=== PATIENT | female | born 1940 | race Caucasian/White ===

== ENCOUNTER 2019-12-21 22:40 | Emergency (ER) | payer MEDICARE, OTHER ==
[~2019-12-21] VITALS: Ht 152.4 cm; Wt 80.9 kg
[~2019-12-21 22:40] MED LIST: ASPI-612 PO; ATOR20TA58 PO; CHOL10003 PO; CLOP75TA PO; FENT1PAT15 TD; FURO40TA4 PO; GABA300C18 PO; LEVO75TA5 PO; LISI-338 PO; LORA10TA68 PO; METF500T25 PO; METO-269 PO; MULT-208 PO; OMEG500C PO; OXYB10TA26 PO; PANT40TA77 PO; POTA20TA4 PO; SERT100T PO; SITA50TA PO; TURM500C7 PO
[2019-12-21] MEDS ORDERED: ALPR0.254 PO ×2 (22:57→22:58)
--- NOTE | 2019-12-21 22:58 | PHYS DOC ---
Past Medical History Past Medical History: Diabetes-Type II, GERD, High Cholesterol, Hypertension, Hypothyroid Past Surgical History: Appendectomy, Cholecystectomy, Knee Replacement Additional Past Surgical Histo: stent placed x 1, replaced Smoking Status: Current Every Day Smoker Alcohol Use: None Drug Use: None Adult General HPI HPI Patient is a 79-year-old female who takes hydrocodone for chronic left shoulder pain. She has not had any of her hydrocodone today because it's locked up in a lock box and she doesn't have the ruiz. She states her kids wouldn't come over and unlock her medicine. She states about 30-45 minutes ago she started feeling anxious and panicky. She called her son who told her to call EMS. She denies any chest pain shortness of breath. She denies any headache or lateralizing neurologic weakness. She has not had any nausea vomiting or diaphoresis. She denies any fever chills or sweats.[] Review of Systems Review of Systems Constitutional: Denies fever or chills [] Eyes: Denies change in visual acuity, redness, or eye pain [] HENT: Denies nasal congestion or sore throat [] Respiratory: Denies cough or shortness of breath [] Cardiovascular: No additional information not addressed in HPI [] GI: Denies abdominal pain, nausea, vomiting, bloody stools or diarrhea [] : Denies dysuria or hematuria [] Musculoskeletal: Denies back pain or joint pain [] Integument: Denies rash or skin lesions [] Neurologic: Denies headache, focal weakness or sensory changes [] Endocrine: Denies polyuria or polydipsia [] Psychiatric: States she feels anxious All other systems were reviewed and found to be within normal limits, except as documented in this note. Allergies Allergies Allergies Coded Allergies Type Severity Reaction Last Updated Verified Penicillins Allergy Intermediate 01/27/16 Yes Physical Exam Physical Exam Constitutional: Well developed, well nourished, no acute distress, non-toxic appearance. [] HENT: Normocephalic, atraumatic, bilateral external ears normal, oropharynx moist, no oral exudates, nose normal. [] Eyes: PERRLA, EOMI, conjunctiva normal, no discharge. [] Neck: Normal range of motion, no tenderness, supple, no stridor. [] Cardiovascular:Heart rate regular rhythm, no murmur [] Lungs & Thorax: Bilateral breath sounds clear to auscultation [] Abdomen: Bowel sounds normal, soft, no tenderness, no masses, no pulsatile masses. [] Skin: Warm, dry, no erythema, no rash. [] Back: No tenderness, no CVA tenderness. [] Extremities: No tenderness, no cyanosis, no clubbing, ROM intact, no edema. [] Neurologic: Alert and oriented X 3, normal motor function, normal sensory function, no focal deficits noted. [] Psychologic: Very anxious[] EKG EKG [] Radiology/Procedures Radiology/Procedures [] Course & Med Decision Making Course & Med Decision Making Pertinent Labs and Imaging studies reviewed. (See chart for details) [] Dragon Disclaimer Dragon Disclaimer This electronic medical record was generated, in whole or in part, using a voice recognition dictation system. Departure Departure Impression: Primary Impression: Anxiety reaction Disposition: 01 HOME, SELF-CARE Condition: STABLE Referrals: TRUMAN MERCEDES Jr, MD (PCP) Patient Instructions: Anxiety and Panic Attacks Additional Instructions: Return to the emergency department with any new or concerning symptoms Scripts Alprazolam (ALPRAZOLAM) 0.25 Mg Tablet 0.25 MG PO PRN Q6HRS PRN for ANXIETY / AGITATION, #6 TAB 0 Refills Prov: BE PAREKH DO 12/21/19 BE PAREKH DO Dec 21, 2019 22:58
[2019-12-21] MEDS ORDERED: ALPRAZolam 0.5 MG TABLET PO ONE (23:15)
[2019-12-21 23:32] VITALS: BP 158/76
== END 2019-12-21 23:58 | disposition home or self-care (01) ==
LOC: ER 22:40
DX: F41.9 Anxiety disorder, unspecified (principal); G89.29 Other chronic pain; M25.512 Pain in left shoulder; E11.9 Type 2 diabetes mellitus without complications; I10 Essential (primary) hypertension; E78.00 Pure hypercholesterolemia, unspecified; K21.9 Gastro-esophageal reflux disease without esophagitis; E03.9 Hypothyroidism, unspecified; Z95.5 Presence of coronary angioplasty implant and graft; Z88.0 Allergy status to penicillin
CPT/HCPCS: 99284

== ENCOUNTER 2020-11-18 14:44 | Inpatient (IN) | payer MEDICARE ==
[~2020-11-18] VITALS: Ht 152.4 cm; Wt 88.0 kg
[~2020-11-18 14:44] MED LIST changes: +ALPR0.254 PO; +APIX5TAB PO; -ASPI-612 PO; +ASPI-886 PO; +DILT120C99 PO; +HYDR-2761 PO; +INSU100V8 SQ; +LEVO250T7 PO; -LISI-338 PO; +LISI-517 PO; +METO-239 PO; +POTA10TA6 PO
[2020-11-18] MEDS ORDERED: IV NORMAL SALINE 1000ML BAG 1,000 ML IV ONE (15:00)
[2020-11-18 15:11] LABS: BASO % 1 % (0-3); EOS % 0 % (0-3); HEMATOCRIT 35.4 % (36.0-47.0); HEMOGLOBIN 12.1 g/dL (12.0-15.5); LYMPH # 0.8 x10^3/uL (1.0-4.8); LYMPH % 15 % (24-48); MEAN CORPUSCULAR HEMOGLOBIN 33 pg (25-35); MEAN CORPUSCULAR HGB CONC 34 g/dL (31-37); MEAN CORPUSCULAR VOLUME 96 fL (79-100); MONO # 0.5 x10^3/uL (0.0-1.1); MONO % 10 % (0-9); NEUT # 4.1 x10^3/uL (1.8-7.7); NEUT % 75 % (31-73); PLATELET COUNT 181 x10^3/uL (140-400); RED CELL DISTRIBUTION WIDTH 13.7 % (11.5-14.5); WHITE BLOOD COUNT 5.5 x10^3/uL (4.0-11.0)
[2020-11-18 15:19] LABS: CREATININE 0.7 mg/dL (0.6-1.0); GFR 80.9; POTASSIUM 3.8 mmol/L (3.5-5.1)
[2020-11-18 15:24] LABS: ALBUMIN 3.2 g/dL (3.4-5.0); MAGNESIUM 1.6 mg/dL (1.8-2.4); TOTAL BILIRUBIN 0.6 mg/dL (0.2-1.0); TOTAL PROTEIN 6.5 g/dL (6.4-8.2)
--- NOTE | 2020-11-18 15:25 | RAD ---
XR CHEST 1V Clinical Indication: Reason: ALTERED MENTAL STATUS Comparison: AP chest October 09, 2020. Findings: The cardiomediastinal silhouette is normal. Mild interstitial marking prominence. No focal airspace d isease. There is no pneumothorax. No pleural effusion is appreciated. No acute bone abnormality. Ther e is arthropathy of the shoulders, severe on the left. IMPRESSION: There is unchanged mild interstitial marking prominence. Considerations include chronic interstitial lung disease versus mild interstitial edema or interstitial infiltrate. Electronically signed by: Robbie Subramanian MD (11/18/2020 3:22 PM) [facility]
--- NOTE | 2020-11-18 15:31 | RAD ---
PQRS Compliance Statement: One or more of the following individualized dose reduction techniques were utilized for this examinat ion: 1. Automated exposure control 2. Adjustment of the mA and/or kV according to patient size 3. Use of iterative reconstruction technique CT HEAD WITHOUT CONTRAST History: Reason: AMS / Spl. Instructions: / History: Comparison: CT head without contrast April 20, 2011. Technique: Axial images are obtained of the head from the skull base through the vertex without IV co ntrast. Findings: No mass-effect, midline shift, extra-axial fluid collection, hemorrhage, or obvious acute infarction is identified. Basilar cisterns are patent. The ventricles and sulci are prominent, consistent with age-related cerebral atrophy. There is perive ntricular white matter hypoattenuation. This is a nonspecific finding but is commonly due to chronic small vessel ischemic disease. Bone windows demonstrate no acute calvarial abnormality. There is mucosal thickening in the bilateral ethmoid sinuses. There is no air-fluid level. Mastoid ai r cells are well aerated. IMPRESSION: 1. No acute intracranial abnormality. 2. Age-related cerebral atrophy and periventricular white matter changes probably due to chronic sma ll vessel ischemic disease. Electronically signed by: Robbie Subramanian MD (11/18/2020 3:28 PM) [facility]
--- NOTE | 2020-11-18 15:57 | EKG ---
[facility] [address] [place] [address] Test Date: 2020-11-18 Test Time: 14:57:45 Pat Name: RADHA PEARSON Department: Room: Gender: F [employer]: : 1940 Requested By: ANGELLA LYON Order Number: [id number] Reading MD: Measurements Intervals [place] Rate: 87 P: MI: QRS: -45 QRSD: 104 T: 54 QT: 358 QTc: 437 Interpretive Statements SINUS RHYTHM ABNORMAL LEFT AXIS DEVIATION LEFT ANTERIOR FASCICULAR BLOCK ABNORMAL ECG RI6.02 No previous ECG available for comparison
[2020-11-18 16:13] LABS: BILIRUBIN,URINE NEGATIVE (NEG); CLARITY,URINE CLEAR; COLOR,URINE YELLOW; NITRITE,URINE NEGATIVE (NEG); PROTEIN,URINE NEGATIVE (NEG-TRACE)
[2020-11-18 16:23] LABS: AMPHETAMINE/METHAMPHETAMINE NEG (NEG); BARBITURATES NEG (NEG); BENZODIAZEPINES NEG (NEG); CANNABINOIDS NEG (NEG); COCAINE NEG (NEG); METHADONE NEG (NEG); OPIATES NEG (NEG); PHENCYCLIDINE NEG (NEG)
[2020-11-18 16:28] LABS: BACTERIA,URINE FEW /HPF (0-FEW)
[2020-11-18] MEDS ORDERED: ACETAMINOPHEN 500 MG TABLET PO ONE (17:15)
--- NOTE | 2020-11-18 17:31 | PHYS DOC ---
Past Medical History Past Medical History: A-Fib, Diabetes-Type II, GERD, High Cholesterol, Hypertension, Hypothyroid Past Surgical History: Appendectomy, Cholecystectomy, Knee Replacement Additional Past Surgical Histo: stent placed x 1, replaced Smoking Status: Former Smoker Alcohol Use: None Drug Use: None General Adult EDM: Chief Complaint: ALTERED MENTAL STATUS HPI: HPI: Patient is a 79 year old female with history of diabetes, hypertension, high cholesterol, A. fib who presents to the ED today from home by EMS, EMS report patient was having physical therapy for right shoulder rotator cuff issues when the therapist noted she was altered and not on top of her game. Patient herself states she feels "disty" and not able to remember things very well. She states she also feels very thirsty. She states she has chronic right shoulder pain. Denies any chest pain. She states she has shortness of breath on exertion Review of Systems: Review of Systems: Constitutional: Denies fever or chills. [] Eyes: Denies change in visual acuity. [] HENT: Denies nasal congestion or sore throat. [] Respiratory: Reports shortness of breath on exertion. Denies cough Cardiovascular: Denies chest pain or edema. [] GI: Denies abdominal pain, nausea, vomiting, bloody stools or diarrhea. [] : Denies dysuria. [] Musculoskeletal: Denies back pain or joint pain. [] Integument: Denies rash. [] Neurologic: Reports altered mental status. Denies headache, focal weakness or sensory changes. [] Psychiatric: Denies depression or anxiety. [] Heart Score: Risk Factors: Risk Factors: DM, Current or recent (<one month) smoker, HTN, HLP, family history of CAD, obesity. Risk Scores: Score 0 - 3: 2.5% MACE over next 6 weeks - Discharge Home Score 4 - 6: 20.3% MACE over next 6 weeks - Admit for Clinical Observation Score 7 - 10: 72.7% MACE over next 6 weeks - Early Invasive Strategies Current Medications: Current Medications Medications (Trade) Dose Ordered Sig/Myra Start Time Stop Time Status Last Admin Dose Admin Acetaminophen (Tylenol) 500 mg 1X ONCE 11/18/20 17:15 11/18/20 17:16 DC 11/18/20 17:24 500 MG Sodium Chloride 1,000 ml @ 1,000 mls/hr 1X ONCE 11/18/20 15:00 11/18/20 15:59 DC 11/18/20 15:50 1,000 MLS/HR Allergies: Allergies: Allergies Coded Allergies Type Severity Reaction Last Updated Verified Penicillins Allergy Intermediate 01/27/16 Yes Physical Exam: PE: Constitutional: Well developed, well nourished, no acute distress, non-toxic appearance. [] HENT: Normocephalic, atraumatic, bilateral external ears normal, oropharynx moist, no oral exudates, nose normal. [] Eyes: PERRLA, EOMI, conjunctiva normal, no discharge. [] Neck: Normal range of motion, no tenderness, supple, no stridor. [] Cardiovascular:Heart rate regular rhythm, no murmur [] Lungs & Thorax: Bilateral breath sounds clear to auscultation [] Abdomen: Bowel sounds normal, soft, no tenderness, no masses, no pulsatile masses. [] Skin: Warm, dry, no erythema, no rash. [] Back: No tenderness, no CVA tenderness. [] Extremities: No tenderness, no cyanosis, no clubbing, ROM intact, no edema. Fentanyl patch on the right upper back Neurologic: Alert and oriented X 3 but takes a while to answer questions, normal motor function, normal sensory function, no focal deficits noted. Cranial nerves II through XII intact. Psychologic: Flat affect Current Patient Data: Labs: Laboratory Tests Test 11/18/20 14:55 11/18/20 15:50 White Blood Count 5.5 x10^3/uL (4.0-11.0) Red Blood Count 3.70 x10^6/uL (3.50-5.40) Hemoglobin 12.1 g/dL (12.0-15.5) Hematocrit 35.4 % (36.0-47.0) L Mean Corpuscular Volume 96 fL (79-100) Mean Corpuscular Hemoglobin 33 pg (25-35) Mean Corpuscular Hemoglobin Concent 34 g/dL (31-37) Red Cell Distribution Width 13.7 % (11.5-14.5) Platelet Count 181 x10^3/uL (140-400) Neutrophils (%) (Auto) 75 % (31-73) H Lymphocytes (%) (Auto) 15 % (24-48) L Monocytes (%) (Auto) 10 % (0-9) H Eosinophils (%) (Auto) 0 % (0-3) Basophils (%) (Auto) 1 % (0-3) Neutrophils # (Auto) 4.1 x10^3/uL (1.8-7.7) Lymphocytes # (Auto) 0.8 x10^3/uL (1.0-4.8) L Monocytes # (Auto) 0.5 x10^3/uL (0.0-1.1) Eosinophils # (Auto) 0.0 x10^3/uL (0.0-0.7) Basophils # (Auto) 0.0 x10^3/uL (0.0-0.2) Sodium Level 136 mmol/L (136-145) Potassium Level 3.8 mmol/L (3.5-5.1) Chloride Level 96 mmol/L (98-107) L Carbon Dioxide Level 24 mmol/L (21-32) Anion Gap 16 (6-14) H Blood Urea Nitrogen 23 mg/dL (7-20) H Creatinine 0.7 mg/dL (0.6-1.0) Estimated GFR (Cockcroft-Gault) 80.9 BUN/Creatinine Ratio 33 (6-20) H Glucose Level 237 mg/dL (70-99) H Lactic Acid Level 1.2 mmol/L (0.4-2.0) Calcium Level 8.0 mg/dL (8.5-10.1) L Magnesium Level 1.6 mg/dL (1.8-2.4) L Total Bilirubin 0.6 mg/dL (0.2-1.0) Aspartate Amino Transferase (AST) 25 U/L (15-37) Alanine Aminotransferase (ALT) 13 U/L (14-59) L Alkaline Phosphatase 78 U/L (46-116) Troponin I Quantitative < 0.017 ng/mL (0.000-0.055) QK-Fym-S-Type Natriuretic Peptide 232 pg/mL (0-449) Total Protein 6.5 g/dL (6.4-8.2) Albumin 3.2 g/dL (3.4-5.0) L Albumin/Globulin Ratio 1.0 (1.0-1.7) Procalcitonin < 0.10 ng/mL (0.00-0.10) Thyroid Stimulating Hormone (TSH) 0.303 uIU/mL (0.358-3.74) L Urine Collection Type Unknown Urine Color Yellow Urine Clarity Clear Urine pH 6.0 (<5.0-8.0) Urine Specific [place] >=1.030 (1.000-1.030) Urine Protein Negative mg/dL (NEG-TRACE) Urine Glucose (UA) >=1000 mg/dL (NEG) Urine Ketones (Stick) >=80 mg/dL (NEG) Urine Blood Moderate (NEG) Urine Nitrite Negative (NEG) Urine Bilirubin Negative (NEG) Urine Urobilinogen Dipstick 1.0 mg/dL (0.2 mg/dL) Urine Leukocyte Esterase Negative (NEG) Urine RBC 3-5 /HPF (0-2) Urine WBC 1-4 /HPF (0-4) Urine Squamous Epithelial Cells Few /LPF Urine Bacteria Few /HPF (0-FEW) Urine Opiates Screen Neg (NEG) Urine Methadone Screen Neg (NEG) Urine Barbiturates Neg (NEG) Urine Phencyclidine Screen Neg (NEG) Urine Amphetamine/Methamphetamine Neg (NEG) Urine Benzodiazepines Screen Neg (NEG) Urine Cocaine Screen Neg (NEG) Urine Cannabinoids Screen Neg (NEG) Urine Ethyl Alcohol Neg (NEG) Laboratory Tests 11/18/20 14:55 Laboratory Tests 11/18/20 14:55 Vital Signs: Vital Signs Date Time Temp Pulse Resp B/P (MAP) Pulse Ox O2 Delivery O2 Flow Rate FiO2 11/18/20 14:44 98.2 94 22 133/63 (86) 93 Room Air 98.2 EKG: EK interpreted by Dr. Davis sinus rhythm HR 82 no STEMI Radiology/Procedures: Radiology/Procedures: []PROCEDURE: CT HEAD WO CONTRAST PQRS Compliance Statement: One or more of the following individualized dose reduction techniques were utilized for this examination: 1. Automated exposure control 2. Adjustment of the mA and/or kV according to patient size 3. Use of iterative reconstruction technique CT HEAD WITHOUT CONTRAST History: Reason: AMS / Spl. Instructions: / History: Comparison: CT head without contrast April 20, 2011. Technique: Axial images are obtained of the head from the skull base through the vertex without IV contrast. Findings: No mass-effect, midline shift, extra-axial fluid collection, hemorrhage, or obvious acute infarction is identified. Basilar cisterns are patent. The ventricles and sulci are prominent, consistent with age-related cerebral atrophy. There is periventricular white matter hypoattenuation. This is a nonspecific finding but is commonly due to chronic small vessel ischemic disease. Bone windows demonstrate no acute calvarial abnormality. There is mucosal thickening in the bilateral ethmoid sinuses. There is no air- fluid level. Mastoid air cells are well aerated. IMPRESSION: 1. No acute intracranial abnormality. 2. Age-related cerebral atrophy and periventricular white matter changes probably due to chronic small vessel ischemic disease. Electronically signed by: Robbie Subramanian MD (11/18/2020 3:28 PM) [facility] DICTATED and SIGNED BY: ROBBIE SUBRAMANIAN MD DATE: 11/18/20 [id number] PROCEDURE: PORTABLE CHEST 1V XR CHEST 1V Clinical Indication: Reason: ALTERED MENTAL STATUS Comparison: AP chest October 09, 2020. Findings: The cardiomediastinal silhouette is normal. Mild interstitial marking prominence. No focal airspace disease. There is no pneumothorax. No pleural effusion is appreciated. No acute bone abnormality. There is arthropathy of the shoulders, severe on the left. IMPRESSION: There is unchanged mild interstitial marking prominence. Considerations include chronic interstitial lung disease versus mild interstitial edema or interstitial infiltrate. Electronically signed by: Robbie Subramanian MD (11/18/2020 3:22 PM) [facility] DICTATED and SIGNED BY: ROBBIE SUBRAMANIAN MD DATE: 11/18/20 [id number] Course & Med Decision Making: Course & Med Decision Making Pertinent Labs and Imaging studies reviewed. (See chart for details) This is a 79-year-old female patient presented to the ED today to be evaluated for altered mental status. See HPI. CT of the head is negative for any acute findings, chest x-ray is negative, EKG is negative, CBC with no acute findings, CMP with glucose of 237, anion gap is 16, BUN is 23. Magnesium 1.6. Urine noted for dehydration. Patient was given IV fluids in the ED. She is more awake and alert right now. Spoke with Dr. Orozco who accepted patient for admission Katy Disclaimer: Katy Disclaimer: This electronic medical record was generated, in whole or in part, using a voice recognition dictation system. Departure Departure Referrals: BISMARK LEO MD (PCP) ANGELLA LYON APRN Nov 18, 2020 17:31
--- NOTE | 2020-11-18 17:43 | PDOC1 ---
History and Physical Date of Admission Date of Admission DATE: 11/18/20 TIME: 17:26 Identification/Chief Complaint Chief Complaint Confusion Source Source: Caregiver, Chart review, Patient History of Present Illness History of Present Illness Ms Flannery is a 79 yo F w/ PMHx HTN, paroxsymal afib who presents to ED via EMS after home health aide noted she was very confused, not acting like herself. Children noted the same. Patient notes she feels dizzy and shaky. She does complain of left shoulder pain that is 9 out of 10 nonradiating. She thinks this is due to a torn rotator cuff. She notes she just saw her personal driver yesterday, Dr. Nash, has a continuous glucometer on her left arm. Was increased in her dosing of lantus to 30u QAM instead of QHS, she did not change yet EKG sinus rhythm rate in the 80s, not in A. 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 No ST segment or T wave changes. Urinalysis positive ketones and glucosuria no leukocyte esterase or nitrates. Urine drug screen negative, though she is wearing two fentanyl patches, 25mcg on her left deltoid and right scapula. When asked how she got the patches on she tells me she doesn't do that, she only puts on her glucose monitor, which is on her left deltoid. She is confused about the fentanyl patches. Labs with WBC 5.5, Hb 12.1, platelets 181, NA 136, K3.8, BUN 23, CR 0.7, glucose 237, albumin 3.2, magnesium 1.6, TSH 0.[address] head with no acute intracranial findings. Chest radiograph with no acute changes Admitted for further care Past Medical History Cardiovascular: AFIB, CAD, HTN, Hyperlipidemia Pulmonary: No pertinent hx CENTRAL NERVOUS SYSTEM: TIA GI: GERD Psych: Anxiety, Depression Musculoskeletal: Other Rheumatologic: No pertinent hx Infectious disease: No pertinent hx Renal/: No pertinent hx Endocrine: Diabetes, Hypothyroidism Past Surgical History Past Surgical History: Appendectomy, Cholecystectomy, Total knee replacement Family History Family History: Heart Disease Social History Smoke: Quit ALCOHOL: none Drugs: None Current Medications Current Medications Current Medications Sodium Chloride 1,000 ml @ 1,000 mls/hr 1X ONCE IV Last administered on 11/18/20at 15:50; Start 3/3/21 at 15:00; Stop 11/18/20 at 15:59; Status DC Acetaminophen (Tylenol) 500 mg 1X ONCE PO Last administered on 11/18/20at 17:24; Start 11/18/20 at 17:15; Stop 11/18/20 at 17:16; Status DC Active Scripts Active Lantus (Insulin Glargine,Hum.rec.anlog) 100 Unit/1 Ml Vial 26 Unit SQ QHS 30 Days Hydrocodone-Apap 5-325 (Hydrocodone Bit/Acetaminophen) 1 Tab Tablet 1 Tab PO PRN Q6HRS PRN 14 Days Diltiazem 24HR Cd (Diltiazem Hcl) 120 Mg Cap.er.24h 120 Mg PO DAILY 30 Days Metoprolol Succinate ( Xl ) (Metoprolol Succinate) 25 Mg Tab.er.24h 75 Mg PO DAILY 30 Days Eliquis (Apixaban) 5 Mg Tablet 5 Mg PO BID 30 Days Levofloxacin 250 Mg Tablet 250 Mg PO DAILY06 7 Days Alprazolam 0.25 Mg Tablet 0.25 Mg PO PRN Q6HRS PRN Reported Furosemide 40 Mg Tablet 1 Tab PO PRN DAILY Klor-Con 10 (Potassium Chloride) 10 Meq Tablet.er 1 Tab PO PRN DAILY PRN 30 Days Vitamin D3 (Cholecalciferol (Vitamin D3)) 1,000 Unit Tablet 2 Tab PO BID Turmeric (Turmeric Root Extract) 500 Mg Capsule 500 Mg PO DAILY Multi-Day Vitamins (Multivitamin) 1 Each Tablet 1 Tab PO DAILY Januvia (Sitagliptin Phosphate) 50 Mg Tablet 1 Tab PO DAILY Zoloft (Sertraline Hcl) 100 Mg Tablet 1 Tab PO DAILY Pantoprazole Sodium (Pantoprazole Sodium) 40 Mg Tablet.dr 1 Tab PO DAILY Oxybutynin Chloride Er (Oxybutynin Chloride) 10 Mg Tab.er.24 1 Tab PO DAILY Toprol Xl (Metoprolol Succinate) 50 Mg Tab.er.24h 1 Tab PO DAILY Levothyroxine Sodium 75 Mcg Tablet 1 Tab PO DAILY Gabapentin (Gabapentin) 300 Mg Capsule 300 Mg PO BID 300mg in am, 600mg at bedtime Fish Oil ([place]-3 Fatty Acids) 500 Mg Capsule.dr 500 Mg PO FENTANYL 25mcg/hr (Fentanyl) 1 Each Patch.td72 1 Patch TD Q72H Clopidogrel (Clopidogrel Bisulfate) 75 Mg Tablet 1 Tab PO DAILY Claritin (Loratadine) 10 Mg Tablet 1 Tab PO DAILY Atorvastatin Calcium 20 Mg Tablet 1 Tab PO DAILY Metformin Hcl Er (Metformin Hcl) 500 Mg Tab.er.24 1,000 Mg PO BID Allergies Allergies: Coded Allergies: Penicillins (Verified Allergy, Intermediate, 01/27/16) ROS General: YES: Fatigue, Malaise; No: Chills, Night Sweats, Appetite, Other PSYCHOLOGICAL ROS: YES: Anxiety, Concentration difficultie, Disorientation, Memory difficulties; No: Behavioral Disorder, Decreased libido, Depression, Hallucinations, Hostility, Irritablity, Mood Swings, Obsessive thoughts, Physical abuse, Sexual abuse, Sleep disturbances, Suicidal ideation, Other Eyes: No Blurry vision, No Decreased vision, No Double vision, No Dry eyes, No Excessive tearing, No Eye Pain, No Itchy Eyes, No Loss of vision, No Photophobia, No Scotomata, No Uses contacts, No Uses glasses, No Other HEENT: YES: Heacaches; No: Visual Changes, Hearing change, Nasal congestion, Nasal discharge, Oral lesions, Sinus pain, Sore Throat, Epistaxis, Sneezing, Snoring, Tinnitus, Vertigo, Vocal changes, Other ALLERGY AND IMMUNOLOGY: No: Hives, Insect Bite Sensitivity, Itchy/Watery Eyes, Nasal Congestion, Post Nasal Drip, Seasonal Allergies, Other Hematological and Lymphatic: No: Bleeding Problems, Blood Clots, Blood Transfusions, Brusing, Night Sweats, Pallor, Swollen Lymph Nodes, Other ENDOCRINE: No: Breast Changes, Galactorrhea, Hair Pattern Changes, Hot Flashes, Malaise/lethargy, Mood Swings, Palpitations, Polydipsia/polyuria, Skin Changes, Temperature Intolerance, Unexpected Weight Changes, Other Breast: No New/Changing Breast Lumps, No Nipple changes, No Nipple discharge, No Other Respiratory: No: Cough, Hemoptysis, Orthopnea, Pleuritic Pain, Shortness of breath, SOB with excertion, Sputum Changes, Stridor, Tachypnea, Wheezing, Other Cardiovascular: No Chest Pain, No Palpitations, No Orthopnea, No Paroxysmal Noc. Dyspnea, No Edema, No Lt Headedness, No Other Gastrointestinal: No Nausea, No Vomiting, No Abdominal Pain, No Diarrhea, No Constipation, No Melena, No Hematochezia, No Other Genitourinary: No Dysuria, No Frequency, No Incontinence, No Hematuria, No Retention, No Discharge, No Urgency, No Pain, No Flank Pain, No Other, No , No , No , No , No , No , No Musculoskeletal: No Gait Disturbance, No Joint Pain, No Joint Stiffness, No Joint Swelling, No Muscle Pain, No Muscular Weakness, No Pain In:, No Swelling In:, No Other Neurological: Yes Confusion, Yes Dizziness, Yes Headaches, Yes Impaired Coord/balance, Yes Memory Loss; No Behavorial Changes, No Bowel/Bladder ControlChng, No Gait Disturbance, No Numbness/Tingling, No Seizures, No Speech Problems, No Tremors, No Visual Changes, No Weakness, No Other Skin: No Dry Skin, No Eczema, No Hair Changes, No Lumps, No Mole Changes, No Mottling, No Nail Changes, No Pruritus, No Rash, No Skin Lesion Changes, No Other, No Acne Vitals Vitals Vital Signs Date Time Temp Pulse Resp B/P (MAP) Pulse Ox O2 Delivery O2 Flow Rate FiO2 11/18/20 14:44 98.2 94 22 133/63 (86) 93 Room Air 98.2 Labs Labs Laboratory Tests Test 11/18/20 14:55 11/18/20 15:50 White Blood Count 5.5 x10^3/uL (4.0-11.0) Red Blood Count 3.70 x10^6/uL (3.50-5.40) Hemoglobin 12.1 g/dL (12.0-15.5) Hematocrit 35.4 % (36.0-47.0) Mean Corpuscular Volume 96 fL (79-100) Mean Corpuscular Hemoglobin 33 pg (25-35) Mean Corpuscular Hemoglobin Concent 34 g/dL (31-37) Red Cell Distribution Width 13.7 % (11.5-14.5) Platelet Count 181 x10^3/uL (140-400) Neutrophils (%) (Auto) 75 % (31-73) Lymphocytes (%) (Auto) 15 % (24-48) Monocytes (%) (Auto) 10 % (0-9) Eosinophils (%) (Auto) 0 % (0-3) Basophils (%) (Auto) 1 % (0-3) Neutrophils # (Auto) 4.1 x10^3/uL (1.8-7.7) Lymphocytes # (Auto) 0.8 x10^3/uL (1.0-4.8) Monocytes # (Auto) 0.5 x10^3/uL (0.0-1.1) Eosinophils # (Auto) 0.0 x10^3/uL (0.0-0.7) Basophils # (Auto) 0.0 x10^3/uL (0.0-0.2) Sodium Level 136 mmol/L (136-145) Potassium Level 3.8 mmol/L (3.5-5.1) Chloride Level 96 mmol/L (98-107) Carbon Dioxide Level 24 mmol/L (21-32) Anion Gap 16 (6-14) Blood Urea Nitrogen 23 mg/dL (7-20) Creatinine 0.7 mg/dL (0.6-1.0) Estimated GFR (Cockcroft-Gault) 80.9 BUN/Creatinine Ratio 33 (6-20) Glucose Level 237 mg/dL (70-99) Lactic Acid Level 1.2 mmol/L (0.4-2.0) Calcium Level 8.0 mg/dL (8.5-10.1) Magnesium Level 1.6 mg/dL (1.8-2.4) Total Bilirubin 0.6 mg/dL (0.2-1.0) Aspartate Amino Transf (AST/SGOT) 25 U/L (15-37) Alanine Aminotransferase (ALT/SGPT) 13 U/L (14-59) Alkaline Phosphatase 78 U/L (46-116) Troponin I Quantitative < 0.017 ng/mL (0.000-0.055) MO-Xdq-[id number]-Type Natriuretic Peptide 232 pg/mL (0-449) Total Protein 6.5 g/dL (6.4-8.2) Albumin 3.2 g/dL (3.4-5.0) Albumin/Globulin Ratio 1.0 (1.0-1.7) Procalcitonin < 0.10 ng/mL (0.00-0.10) Thyroid Stimulating Hormone (TSH) 0.303 uIU/mL (0.358-3.74) Urine Collection Type Unknown Urine Color Yellow Urine Clarity Clear Urine pH 6.0 (<5.0-8.0) Urine Specific [place] >=1.030 (1.000-1.030) Urine Protein Negative mg/dL (NEG-TRACE) Urine Glucose (UA) >=1000 mg/dL (NEG) Urine Ketones (Stick) >=80 mg/dL (NEG) Urine Blood Moderate (NEG) Urine Nitrite Negative (NEG) Urine Bilirubin Negative (NEG) Urine Urobilinogen Dipstick 1.0 mg/dL (0.2 mg/dL) Urine Leukocyte Esterase Negative (NEG) Urine RBC 3-5 /HPF (0-2) Urine WBC 1-4 /HPF (0-4) Urine Squamous Epithelial Cells Few /LPF Urine Bacteria Few /HPF (0-FEW) Urine Opiates Screen Neg (NEG) Urine Methadone Screen Neg (NEG) Urine Barbiturates Neg (NEG) Urine Phencyclidine Screen Neg (NEG) Urine Amphetamine/Methamphetamine Neg (NEG) Urine Benzodiazepines Screen Neg (NEG) Urine Cocaine Screen Neg (NEG) Urine Cannabinoids Screen Neg (NEG) Urine Ethyl Alcohol Neg (NEG) Laboratory Tests Test 11/18/20 14:55 11/18/20 15:50 White Blood Count 5.5 x10^3/uL (4.0-11.0) Red Blood Count 3.70 x10^6/uL (3.50-5.40) Hemoglobin 12.1 g/dL (12.0-15.5) Hematocrit 35.4 % (36.0-47.0) Mean Corpuscular Volume 96 fL (79-100) Mean Corpuscular Hemoglobin 33 pg (25-35) Mean Corpuscular Hemoglobin Concent 34 g/dL (31-37) Red Cell Distribution Width 13.7 % (11.5-14.5) Platelet Count 181 x10^3/uL (140-400) Neutrophils (%) (Auto) 75 % (31-73) Lymphocytes (%) (Auto) 15 % (24-48) Monocytes (%) (Auto) 10 % (0-9) Eosinophils (%) (Auto) 0 % (0-3) Basophils (%) (Auto) 1 % (0-3) Neutrophils # (Auto) 4.1 x10^3/uL (1.8-7.7) Lymphocytes # (Auto) 0.8 x10^3/uL (1.0-4.8) Monocytes # (Auto) 0.5 x10^3/uL (0.0-1.1) Eosinophils # (Auto) 0.0 x10^3/uL (0.0-0.7) Basophils # (Auto) 0.0 x10^3/uL (0.0-0.2) Sodium Level 136 mmol/L (136-145) Potassium Level 3.8 mmol/L (3.5-5.1) Chloride Level 96 mmol/L (98-107) Carbon Dioxide Level 24 mmol/L (21-32) Anion Gap 16 (6-14) Blood Urea Nitrogen 23 mg/dL (7-20) Creatinine 0.7 mg/dL (0.6-1.0) Estimated GFR (Cockcroft-Gault) 80.9 BUN/Creatinine Ratio 33 (6-20) Glucose Level 237 mg/dL (70-99) Lactic Acid Level 1.2 mmol/L (0.4-2.0) Calcium Level 8.0 mg/dL (8.5-10.1) Magnesium Level 1.6 mg/dL (1.8-2.4) Total Bilirubin 0.6 mg/dL (0.2-1.0) Aspartate Amino Transf (AST/SGOT) 25 U/L (15-37) Alanine Aminotransferase (ALT/SGPT) 13 U/L (14-59) Alkaline Phosphatase 78 U/L (46-116) Troponin I Quantitative < 0.017 ng/mL (0.000-0.055) IG-Hcw-G-Type Natriuretic Peptide 232 pg/mL (0-449) Total Protein 6.5 g/dL (6.4-8.2) Albumin 3.2 g/dL (3.4-5.0) Albumin/Globulin Ratio 1.0 (1.0-1.7) Procalcitonin < 0.10 ng/mL (0.00-0.10) Thyroid Stimulating Hormone (TSH) 0.303 uIU/mL (0.358-3.74) Urine Collection Type Unknown Urine Color Yellow Urine Clarity Clear Urine pH 6.0 (<5.0-8.0) Urine Specific [place] >=1.030 (1.000-1.030) Urine Protein Negative mg/dL (NEG-TRACE) Urine Glucose (UA) >=1000 mg/dL (NEG) Urine Ketones (Stick) >=80 mg/dL (NEG) Urine Blood Moderate (NEG) Urine Nitrite Negative (NEG) Urine Bilirubin Negative (NEG) Urine Urobilinogen Dipstick 1.0 mg/dL (0.2 mg/dL) Urine Leukocyte Esterase Negative (NEG) Urine RBC 3-5 /HPF (0-2) Urine WBC 1-4 /HPF (0-4) Urine Squamous Epithelial Cells Few /LPF Urine Bacteria Few /HPF (0-FEW) Urine Opiates Screen Neg (NEG) Urine Methadone Screen Neg (NEG) Urine Barbiturates Neg (NEG) Urine Phencyclidine Screen Neg (NEG) Urine Amphetamine/Methamphetamine Neg (NEG) Urine Benzodiazepines Screen Neg (NEG) Urine Cocaine Screen Neg (NEG) Urine Cannabinoids Screen Neg (NEG) Urine Ethyl Alcohol Neg (NEG) Images Images CT Head: No mass-effect, midline shift, extra-axial fluid collection, hemorrhage, or obvious acute infarction is identified. Basilar cisterns are patent. The ventricles and sulci are prominent, consistent with age-related cerebral atrophy. There is periventricular white matter hypoattenuation. This is a nonspecific finding but is commonly due to chronic small vessel ischemic disease. Bone windows demonstrate no acute calvarial abnormality. There is mucosal thickening in the bilateral ethmoid sinuses. There is no air- fluid level. Mastoid air cells are well aerated. IMPRESSION: 1. No acute intracranial abnormality. 2. Age-related cerebral atrophy and periventricular white matter changes probably due to chronic small vessel ischemic disease. VTE Prophylaxis Ordered VTE Prophylaxis Devices: Yes VTE Pharmacological Prophylaxi: Yes Assessment/Plan Assessment/Plan A/P: Acute encephalopathy - noted by home health and children, not at baseline. No focal neurologic deficits to indicate CVA, possibly due to electrolyte derangement. Likely also polypharmacy considering she has 2 fentanyl patches. Her TSH is low, will reduce her levothyroxine as well Paroxysmal AFIB - currently sinus. on oral Cardizem, metoprolol. Rate remains uncontrolled. On prophylactic dose of Lovenox. CAD s/p remote PCI/stent. On ASA/Plavix. Follows with [facility] cardiology, Dr. Salter Hypertension - will monitor Hyperlipidemia; statin Diabetes - type II, not well controlled. Sees Dr. Nash through [facility]. Will continue her 30u lantus regimen and sliding scale lispro otherwise Hypothyroidism; on replacement. TSH low, will reduce given her confusion and h/o afib H/o tobaccoism; in remission Hypomagnesemia - will replace Moderate protein calorie malnutrition - given her recent SNF stay her self care is in question. She notes she only eats microwave meals and sometimes a salad her home health aide will make FEN - ADA diet PPX - eliquis FULL CODE Dispo - inpatient for confusion, may need SNF or longer term placement Justifications for Admission Other Justification GIGI REESE MD Nov 18, 2020 17:43
[2020-11-18] MEDS ORDERED: DEXTROSE 50% 25 GM / 50ML DISP.SYRIN. IV PRN (17:45)
[2020-11-18] MEDS ORDERED: ONDANSETRON PF 4 MG/2 ML VIAL. IVP PRN (17:45)
[2020-11-18] MEDS ORDERED: CALCIUM CARBONATE 500 MG TAB.CHEW PO PRN (17:45)
[2020-11-18] MEDS ORDERED: MAGNESIUM HYDROXIDE 2,400 MG/30 ML ORAL.SUSP. PO PRN (17:45)
[2020-11-18] MEDS: LIDOCAINE (700MG/PATCH) PATCH. TD SCH (18:00)
[2020-11-18] MEDS ORDERED: PROCHLORPERAZINE 10 MG/2 ML VIAL. IV ONE (18:00)
[2020-11-18] MEDS ORDERED: MAGNESIUM SULFATE 2GM 50 ML IV ONE (18:00)
[2020-11-18] MEDS ORDERED: ACETAMINOPHEN 325 MG TABLET. PO PRN (19:15)
[2020-11-18] MEDS ORDERED: ONDANSETRON PF 4 MG/2 ML VIAL. IV PRN (19:15)
[2020-11-18 19:32] VITALS: BP 130/60
--- NOTE | 2020-11-18 20:07 | NUR ---
Pt arrived to room 256 per cart, pt oriented to surroundings assessment completed tele monitor applied pt c\o pain to left shoulder, vs obtained and stable call light placed in reach will resume care and continue to Addendum: 11/18/20 at 2009 by Huang Saldaña RN monitor pt. Will resume care and continue to monitor pt.
[2020-11-18] MEDS ORDERED: INSULIN GLARGINE SYRINGE. SQ SCH (21:00)
[2020-11-18] MEDS: DICLOFENAC SODIUM 1% TOPICAL GEL 100GM TUBE. TP SCH (21:08)
[2020-11-18] MEDS: GABAPENTIN 300 MG CAPSULE. PO SCH (21:09)
[2020-11-18] MEDS: traMADol 50 MG TABLET PO PRN (21:09)
[2020-11-18] MEDS: APIXABAN 5 MG TABLET. PO SCH (21:09)
[2020-11-18] MEDS: CHOLECALCIFEROL (VITAMIN D3) 1,000 UNIT TABLET PO SCH (21:09)
[2020-11-18] MEDS: SENNOSIDES/DOCUSATE 8.6/50MG TABLET. PO SCH (21:09)
[2020-11-18] MEDS: PSYLLIUM HUSK (SUGAR FREE) 1 PKT PACKET PO SCH (21:10)
[2020-11-18] MEDS: INSULIN GLARGINE SYRINGE. SQ SCH (21:10)
[2020-11-18 22:11] VITALS: BP 109/56
[2020-11-19 02:04] VITALS: BP 115/59
[2020-11-19] MEDS: ACETAMINOPHEN 325 MG TABLET. PO PRN ×2 (02:11→20:43)
[2020-11-19] MEDS: LEVOTHYROXINE 50 MCG TABLET PO SCH (05:56)
[2020-11-19] MEDS: PANTOPRAZOLE 40 MG TABLET.DR. PO SCH (05:57)
[2020-11-19 07:00] VITALS: BP 130/59
[2020-11-19 07:50] LABS: CALCIUM 7.6 mg/dL (8.5-10.1); CREATININE 0.7 mg/dL (0.6-1.0); GFR 80.9; POTASSIUM 3.9 mmol/L (3.5-5.1)
[2020-11-19] MEDS: SENNOSIDES/DOCUSATE 8.6/50MG TABLET. PO SCH ×2 (08:13→20:42)
[2020-11-19] MEDS: LIDOCAINE (700MG/PATCH) PATCH. TD SCH (08:14)
[2020-11-19] MEDS: LINAGLIPTIN 5 MG TABLET PO SCH (08:15)
[2020-11-19] MEDS: CETIRIZINE HCL 10 MG TABLET. PO SCH (08:15)
[2020-11-19] MEDS: GABAPENTIN 300 MG CAPSULE. PO SCH ×2 (08:16→20:43)
[2020-11-19] MEDS: CLOPIDOGREL BISULFATE 75 MG TABLET PO SCH (08:16)
[2020-11-19] MEDS: APIXABAN 5 MG TABLET. PO SCH ×2 (08:16→20:43)
[2020-11-19] MEDS: SERTRALINE 50 MG TABLET. PO SCH (08:16)
[2020-11-19] MEDS: CHOLECALCIFEROL (VITAMIN D3) 1,000 UNIT TABLET PO SCH ×2 (08:16→20:42)
[2020-11-19] MEDS: METOPROLOL SUCC 24HR ER 25 MG TAB.ER.24H. PO SCH (08:17)
[2020-11-19] MEDS: ATORVASTATIN CALCIUM 20 MG TABLET PO SCH (08:19)
[2020-11-19] MEDS: DICLOFENAC SODIUM 1% TOPICAL GEL 100GM TUBE. TP SCH ×2 (08:21→20:43)
--- NOTE | 2020-11-19 08:24 | PDOC ---
[employer] PROGRESS NOTE Date of Service DOS: DATE: 11/19/20 TIME: 08:07 Chief Complaint Chief Complaint A/P: Acute encephalopathy, likely toxic encephalopathy - noted by home health and children, not at baseline. No focal neurologic deficits to indicate CVA, possibly due to electrolyte derangement. Likely also polypharmacy considering she has 2 fentanyl patches. Her TSH is low, will reduce her levothyroxine as well Paroxysmal AFIB - currently sinus. on oral Cardizem, metoprolol. Rate remains uncontrolled. On prophylactic dose of Lovenox. CAD s/p remote PCI/stent. On ASA/Plavix. Follows with [facility] cardiology, Dr. Salter Hypertension - will monitor Hyperlipidemia; statin Diabetes - type II, not well controlled. Sees Dr. Nash through [facility]. Will continue her 30u lantus regimen and sliding scale lispro otherwise Hypothyroidism; on replacement. TSH low, will reduce given her confusion and h/o afib H/o tobaccoism; in remission Hypomagnesemia - will replace Moderate protein calorie malnutrition - given her recent SNF stay her self care is in question. She notes she only eats microwave meals and sometimes a salad her home health aide will make FEN - ADA diet PPX - eliquis FULL CODE Dispo - inpatient for confusion, may need SNF or longer term placement History of Present Illness History of Present Illness Ms Flannery is a 79 yo F w/ PMHx HTN, paroxsymal afib who presents to ED via EMS after home health aide noted she was very confused, not acting like herself. Children noted the same. Patient notes she feels dizzy and shaky. She does complain of left shoulder pain that is 9 out of 10 nonradiating. She thinks this is due to a torn rotator cuff. She notes she just saw her i&c technician yesterday, Dr. Nash, has a continuous glucometer on her left arm. Was increased in her dosing of lantus to 30u QAM instead of QHS, she did not change yet EKG sinus rhythm rate in the 80s, not in A. 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 No ST segment or T wave changes. Urinalysis positive ketones and glucosuria no leukocyte esterase or nitrates. Urine drug screen negative, though she is wearing two fentanyl patches, 25mcg on her left deltoid and right scapula. When asked how she got the patches on she tells me she doesn't do that, she only puts on her glucose monitor, which is on her left deltoid. She is confused about the fentanyl patches. Labs with WBC 5.5, Hb 12.1, platelets 181, NA 136, K3.8, BUN 23, CR 0.7, glucose 237, albumin 3.2, magnesium 1.6, TSH 0.[address] head with no acute intracranial findings. Chest radiograph with no acute changes Admitted for further care 11/19: Patient seen and evaluated. No acute events overnight, afebrile. Rate controlled A. fib. Given 2 fentanyl patches found on her body, initially toxic encephalopathy was concern. BUN increased from 23 to 51, etiology of confusion could certainly be uremic encephalopathy. Given precipitous jump in BUN on Eliquis will check FOBT, and provide IV fluids. Calcium 7.6 today, will schedule calcium carbonate 3 times daily with meals. She feels her confusion has resolved. She states that her daughter would like for her to be placed in assisted living facility, as patient lives alone. She is not wanting to be placed in assisted living facility. PT/OT evaluation pending for SNF versus long-term placement. Vitals/I&O Vitals/I&O: Vital Signs Date Time Temp Pulse Resp B/P (MAP) Pulse Ox O2 Delivery O2 Flow Rate FiO2 11/19/20 02:04 98.7 93 16 115/59 (77) 95 Nasal Cannula 2.0 98.7 I & O 11/18/20 11/18/20 11/19/20 15:00 23:00 07:00 Intake Total 1480 ml 840 ml Balance 1480 ml 840 ml Physical Exam General: Alert, Cooperative Heart: Normal S1, Normal S2 Lungs: Clear, Wheezing Abdomen: Soft, No tenderness Extremities: No clubbing, No cyanosis Skin: No rashes, No breakdown Labs Labs: Laboratory Tests Test 11/18/20 14:55 11/18/20 15:50 11/18/20 18:00 11/18/20 21:20 White Blood Count 5.5 x10^3/uL (4.0-11.0) Red Blood Count 3.70 x10^6/uL (3.50-5.40) Hemoglobin 12.1 g/dL (12.0-15.5) Hematocrit 35.4 % (36.0-47.0) Mean Corpuscular Volume 96 fL (79-100) Mean Corpuscular Hemoglobin 33 pg (25-35) Mean Corpuscular Hemoglobin Concent 34 g/dL (31-37) Red Cell Distribution Width 13.7 % (11.5-14.5) Platelet Count 181 x10^3/uL (140-400) Neutrophils (%) (Auto) 75 % (31-73) Lymphocytes (%) (Auto) 15 % (24-48) Monocytes (%) (Auto) 10 % (0-9) Eosinophils (%) (Auto) 0 % (0-3) Basophils (%) (Auto) 1 % (0-3) Neutrophils # (Auto) 4.1 x10^3/uL (1.8-7.7) Lymphocytes # (Auto) 0.8 x10^3/uL (1.0-4.8) Monocytes # (Auto) 0.5 x10^3/uL (0.0-1.1) Eosinophils # (Auto) 0.0 x10^3/uL (0.0-0.7) Basophils # (Auto) 0.0 x10^3/uL (0.0-0.2) Sodium Level 136 mmol/L (136-145) Potassium Level 3.8 mmol/L (3.5-5.1) Chloride Level 96 mmol/L (98-107) Carbon Dioxide Level 24 mmol/L (21-32) Anion Gap 16 (6-14) Blood Urea Nitrogen 23 mg/dL (7-20) Creatinine 0.7 mg/dL (0.6-1.0) Estimated GFR (Cockcroft-Gault) 80.9 BUN/Creatinine Ratio 33 (6-20) Glucose Level 237 mg/dL (70-99) Lactic Acid Level 1.2 mmol/L (0.4-2.0) Calcium Level 8.0 mg/dL (8.5-10.1) Magnesium Level 1.6 mg/dL (1.8-2.4) Total Bilirubin 0.6 mg/dL (0.2-1.0) Aspartate Amino Transf (AST/SGOT) 25 U/L (15-37) Alanine Aminotransferase (ALT/SGPT) 13 U/L (14-59) Alkaline Phosphatase 78 U/L (46-116) Troponin I Quantitative < 0.017 ng/mL (0.000-0.055) < 0.017 ng/mL (0.000-0.055) 0.050 ng/mL (0.000-0.055) EG-Zah-K-Type Natriuretic Peptide 232 pg/mL (0-449) Total Protein 6.5 g/dL (6.4-8.2) Albumin 3.2 g/dL (3.4-5.0) Albumin/Globulin Ratio 1.0 (1.0-1.7) Procalcitonin < 0.10 ng/mL (0.00-0.10) Thyroid Stimulating Hormone (TSH) 0.303 uIU/mL (0.358-3.74) Urine Collection Type Unknown Urine Color Yellow Urine Clarity Clear Urine pH 6.0 (<5.0-8.0) Urine Specific [place] >=1.030 (1.000-1.030) Urine Protein Negative mg/dL (NEG-TRACE) Urine Glucose (UA) >=1000 mg/dL (NEG) Urine Ketones (Stick) >=80 mg/dL (NEG) Urine Blood Moderate (NEG) Urine Nitrite Negative (NEG) Urine Bilirubin Negative (NEG) Urine Urobilinogen Dipstick 1.0 mg/dL (0.2 mg/dL) Urine Leukocyte Esterase Negative (NEG) Urine RBC 3-5 /HPF (0-2) Urine WBC 1-4 /HPF (0-4) Urine Squamous Epithelial Cells Few /LPF Urine Bacteria Few /HPF (0-FEW) Urine Opiates Screen Neg (NEG) Urine Methadone Screen Neg (NEG) Urine Barbiturates Neg (NEG) Urine Phencyclidine Screen Neg (NEG) Urine Amphetamine/Methamphetamine Neg (NEG) Urine Benzodiazepines Screen Neg (NEG) Urine Cocaine Screen Neg (NEG) Urine Cannabinoids Screen Neg (NEG) Urine Ethyl Alcohol Neg (NEG) Phosphorus Level 2.6 mg/dL (2.6-4.7) Test 11/19/20 02:37 Sodium Level 134 mmol/L (136-145) Potassium Level 3.9 mmol/L (3.5-5.1) Chloride Level 99 mmol/L (98-107) Carbon Dioxide Level 25 mmol/L (21-32) Anion Gap 10 (6-14) Blood Urea Nitrogen 51 mg/dL (7-20) Creatinine 0.7 mg/dL (0.6-1.0) Estimated GFR (Cockcroft-Gault) 80.9 Glucose Level 192 mg/dL (70-99) Calcium Level 7.6 mg/dL (8.5-10.1) Magnesium Level 1.9 mg/dL (1.8-2.4) Assessment and Plan Assessmemt and Plan Problems Medical Problems: (1) AMS (altered mental status) Status: Acute Comment Review of Relevant I have reviewed the following items nhung (where applicable) has been applied. Medications: Current Medications Medications (Trade) Dose Ordered Sig/Myra Route PRN Reason Start Time Stop Time Status Last Admin Dose Admin Sodium Chloride 1,000 ml @ 1,000 mls/hr 1X ONCE IV 11/18/20 15:00 11/18/20 15:59 DC 11/18/20 15:50 Acetaminophen (Tylenol) 500 mg 1X ONCE PO 11/18/20 17:15 11/18/20 17:16 DC 11/18/20 17:24 Magnesium Sulfate 50 ml @ 25 mls/hr 1X ONCE IV 11/18/20 18:00 11/18/20 19:59 DC 11/18/20 18:08 Psyllium Hydrophilic Mucilloid (Metamucil Fiber Packet) 1 pkt QHS PO 11/18/20 21:00 11/18/20 21:10 Olanzapine (ZyPREXA ZYDIS) 5 mg PRN BID PRN PO ANXIETY / AGITATION 11/18/20 17:45 11/19/20 04:10 Ondansetron HCl (Zofran) 4 mg PRN Q6HRS PRN IVP NAUSEA/VOMITING 11/18/20 17:45 11/18/20 21:09 Acetaminophen (Tylenol) 650 mg PRN Q6HRS PRN PO Headaches, Temp > 101.5F 11/18/20 17:45 11/19/20 02:11 Senna/Docusate Sodium (Senna Plus) 1 tab BID PO 11/18/20 21:00 11/18/20 21:09 Apixaban (Eliquis) 5 mg BID PO 11/18/20 21:00 11/18/20 21:09 Vitamin D (Vitamin D3) 2,000 unit BID PO 11/18/20 21:00 11/18/20 21:09 Gabapentin (Neurontin) 300 mg BID PO 11/18/20 21:00 11/18/20 21:09 Levothyroxine Sodium (Synthroid) 50 mcg DAILY06 PO 11/19/20 06:00 11/19/20 05:56 Pantoprazole Sodium (Protonix) 40 mg DAILYAC PO 11/19/20 07:30 11/19/20 05:57 Insulin Glargine (Lantus Syringe) 30 unit QHS SQ 11/18/20 21:00 11/18/20 21:10 Diclofenac Sodium (Voltaren) 1 poly BID TP 11/18/20 21:00 11/18/20 21:08 Tramadol HCl (Ultram) 50 mg PRN Q6HRS PRN PO MILD TO MODERATE PAIN 11/18/20 18:00 11/18/20 21:09 Justifications for Admission General Conditions Altered mental status?: Yes Justification of admission: Patient has tachycardia (> 100 beats per minute) or hypotension (SBP < 90 mm Hg) leading to inadequate systemic perfusion as indicated by severe/persistent altered mental status. Other Justification BHAVIN CARMEN MD Nov 19, 2020 08:24
[2020-11-19 08:28] LABS: HEMATOCRIT 28.7 % (36.0-47.0); HEMOGLOBIN 9.8 g/dL (12.0-15.5); RED BLOOD COUNT 2.97 x10^6/uL (3.50-5.40); RED CELL DISTRIBUTION WIDTH 14.4 % (11.5-14.5); WHITE BLOOD COUNT 5.3 x10^3/uL (4.0-11.0)
[2020-11-19] MEDS: INSULIN LISPRO 300 UNITS/3 ML VIAL. SQ SCH ×3 (08:29→16:50)
[2020-11-19] MEDS: IV NORMAL SALINE 1000ML BAG 1,000 ML IV SCH ×3 (08:30→23:59)
[2020-11-19] MEDS ORDERED: IV NORMAL SALINE 500ML BAG 500 ML IV ONE (10:45)
[2020-11-19 10:47] VITALS: BP 85/52
[2020-11-19] MEDS: traMADol 50 MG TABLET PO PRN (11:32)
--- NOTE | 2020-11-19 12:05 | PDOC2 ---
GREGORIA MONDRAGON ENGINEERING MANAGER 11/19/20 1205: CARDIAC CONSULT DATE OF CONSULT Date of Consult DATE: 11/19/20 TIME: 11:53 REASON FOR CONSULT Reason for Consult: Hypotension REFERRING PHYSICIAN Referring Physician: Dr. Matute SOURCE Source: Chart review, Patient HISTORY OF PRESENT ILLNESS HISTORY OF PRESENT ILLNESS This is a 79 yo female who presented secondary to altered mental status and disorientation. Patient reports she woke up yesterday morning and was slightly confused. Didn't feel like herself and was slightly dizzy, so she decided to come to the ED for further evaluation and treatment. This morning blood pressure was low end following Cardizem and Metoprolol therapy, which prompted this consult. Patient also complained of dry mouth. No chest pain, palpitations, diaphoresis, or nausea/vomiting. Was given IV fluid bolus and dizziness resolve and blood pressure improved. PAST MEDICAL HISTORY Past Medical History Cardiovascular: AFIB, CAD, HTN, Hyperlipidemia GI: GERD Psych: Anxiety, Depression Endocrine: Diabetes, Hypothyroidism PAST SURGICAL HISTORY Past Surgical History Appendectomy, Cholecystectomy, Total knee replacement (bilateral) FAMILY HISTORY Family History: Heart Disease SOCIAL HISTORY Social History Smoke: Quit (1 year ago) ALCOHOL: none Drugs: None Lives: Alone CURRENT MEDICATIONS CURRENT MEDICATIONS Current Medications Medications (Trade) Dose Ordered Sig/Myra Route PRN Reason Start Time Stop Time Status Last Admin Dose Admin Sodium Chloride 1,000 ml @ 1,000 mls/hr 1X ONCE IV 11/18/20 15:00 11/18/20 15:59 DC 11/18/20 15:50 Acetaminophen (Tylenol) 500 mg 1X ONCE PO 11/18/20 17:15 11/18/20 17:16 DC 11/18/20 17:24 Magnesium Sulfate 50 ml @ 25 mls/hr 1X ONCE IV 11/18/20 18:00 11/18/20 19:59 DC 11/18/20 18:08 Psyllium Hydrophilic Mucilloid (Metamucil Fiber Packet) 1 pkt QHS PO 11/18/20 21:00 11/18/20 21:10 Olanzapine (ZyPREXA ZYDIS) 5 mg PRN BID PRN PO ANXIETY / AGITATION 11/18/20 17:45 11/19/20 04:10 Ondansetron HCl (Zofran) 4 mg PRN Q6HRS PRN IVP NAUSEA/VOMITING 11/18/20 17:45 11/18/20 21:09 Acetaminophen (Tylenol) 650 mg PRN Q6HRS PRN PO Headaches, Temp > 101.5F 11/18/20 17:45 11/19/20 02:11 Senna/Docusate Sodium (Senna Plus) 1 tab BID PO 11/18/20 21:00 11/19/20 08:13 Insulin Human Lispro (HumaLOG) 0-9 UNITS TIDWMEALS SQ 11/19/20 08:00 11/19/20 11:36 Apixaban (Eliquis) 5 mg BID PO 11/18/20 21:00 11/19/20 08:16 Atorvastatin Calcium (Lipitor) 20 mg DAILY PO 11/19/20 09:00 11/19/20 08:19 Vitamin D (Vitamin D3) 2,000 unit BID PO 11/18/20 21:00 11/19/20 08:16 Clopidogrel Bisulfate (Plavix) 75 mg DAILY PO 11/19/20 09:00 11/19/20 08:16 Diltiazem HCl (Cardizem 24hr Cd) 120 mg DAILY PO 11/19/20 09:00 11/19/20 10:47 DC 11/19/20 08:18 Gabapentin (Neurontin) 300 mg BID PO 11/18/20 21:00 11/19/20 08:16 Levothyroxine Sodium (Synthroid) 50 mcg DAILY06 PO 11/19/20 06:00 11/19/20 05:56 Metoprolol Succinate (Toprol Xl) 75 mg DAILY PO 11/19/20 09:00 11/19/20 08:17 Pantoprazole Sodium (Protonix) 40 mg DAILYAC PO 11/19/20 07:30 11/19/20 05:57 Cetirizine HCl (ZyrTEC) 10 mg DAILY PO 11/19/20 09:00 11/19/20 08:15 Sertraline HCl (Zoloft) 100 mg DAILY PO 11/19/20 09:00 11/19/20 08:16 Linagliptin (Tradjenta) 5 mg DAILY PO 11/19/20 09:00 11/19/20 08:15 Insulin Glargine (Lantus Syringe) 30 unit QHS SQ 11/18/20 21:00 11/18/20 21:10 Lidocaine (Lidoderm) 1 patch DAILY TD 11/18/20 18:00 11/19/20 08:14 Diclofenac Sodium (Voltaren) 1 poly BID TP 11/18/20 21:00 11/19/20 08:21 Tramadol HCl (Ultram) 50 mg PRN Q6HRS PRN PO MILD TO MODERATE PAIN 11/18/20 18:00 11/19/20 11:32 Sodium Chloride 1,000 ml @ 100 mls/hr Q10H IV 11/19/20 08:30 11/19/20 08:30 Sodium Chloride 500 ml @ 500 mls/hr 1X ONCE IV 11/19/20 10:45 11/19/20 11:44 DC 11/19/20 10:45 ALLERGIES ALLERGIES: Coded Allergies: Penicillins (Verified Allergy, Intermediate, 01/27/16) ROS Review of System 14 point ROS conducted with pertinent positives noted above in HPI PHYSICAL EXAM PHYSICAL EXAM General: Alert, Oriented X3, Cooperative, No acute distress HEENT: Mucous membr. moist/pink Lungs: Other (diminished bases) Heart: SR- rate controlled ) Abdomen: No tenderness Extremities: No edema Skin: No significant lesion Neuro: Normal speech, Sensation intact Psych/Mental Status: Mental status NL, Mood NL MUSCULOSKELETAL: Osteoarthritic changes both hands VITALS/I&O VITALS/I&O: Vital Signs Date Time Temp Pulse Resp B/P (MAP) Pulse Ox O2 Delivery O2 Flow Rate FiO2 11/19/20 11:32 15 Nasal Cannula 11/19/20 10:47 98.3 100 85/52 (63) 95 2.0 98.3 I & O 11/18/20 11/18/20 11/19/20 15:00 23:00 07:00 Intake Total 1480 ml 840 ml Balance 1480 ml 840 ml LABS Lab: Laboratory Tests Test 11/18/20 14:55 11/18/20 15:50 11/18/20 18:00 11/18/20 21:20 White Blood Count 5.5 x10^3/uL (4.0-11.0) Red Blood Count 3.70 x10^6/uL (3.50-5.40) Hemoglobin 12.1 g/dL (12.0-15.5) Hematocrit 35.4 % (36.0-47.0) L Mean Corpuscular Volume 96 fL (79-100) Mean Corpuscular Hemoglobin 33 pg (25-35) Mean Corpuscular Hemoglobin Concent 34 g/dL (31-37) Red Cell Distribution Width 13.7 % (11.5-14.5) Platelet Count 181 x10^3/uL (140-400) Neutrophils (%) (Auto) 75 % (31-73) H Lymphocytes (%) (Auto) 15 % (24-48) L Monocytes (%) (Auto) 10 % (0-9) H Eosinophils (%) (Auto) 0 % (0-3) Basophils (%) (Auto) 1 % (0-3) Neutrophils # (Auto) 4.1 x10^3/uL (1.8-7.7) Lymphocytes # (Auto) 0.8 x10^3/uL (1.0-4.8) L Monocytes # (Auto) 0.5 x10^3/uL (0.0-1.1) Eosinophils # (Auto) 0.0 x10^3/uL (0.0-0.7) Basophils # (Auto) 0.0 x10^3/uL (0.0-0.2) Sodium Level 136 mmol/L (136-145) Potassium Level 3.8 mmol/L (3.5-5.1) Chloride Level 96 mmol/L (98-107) L Carbon Dioxide Level 24 mmol/L (21-32) Anion Gap 16 (6-14) H Blood Urea Nitrogen 23 mg/dL (7-20) H Creatinine 0.7 mg/dL (0.6-1.0) Estimated GFR (Cockcroft-Gault) 80.9 BUN/Creatinine Ratio 33 (6-20) H Glucose Level 237 mg/dL (70-99) H Lactic Acid Level 1.2 mmol/L (0.4-2.0) Calcium Level 8.0 mg/dL (8.5-10.1) L Magnesium Level 1.6 mg/dL (1.8-2.4) L Total Bilirubin 0.6 mg/dL (0.2-1.0) Aspartate Amino Transferase (AST) 25 U/L (15-37) Alanine Aminotransferase (ALT) 13 U/L (14-59) L Alkaline Phosphatase 78 U/L (46-116) Troponin I Quantitative < 0.017 ng/mL (0.000-0.055) < 0.017 ng/mL (0.000-0.055) 0.050 ng/mL (0.000-0.055) BQ-Voq-N-Type Natriuretic Peptide 232 pg/mL (0-449) Total Protein 6.5 g/dL (6.4-8.2) Albumin 3.2 g/dL (3.4-5.0) L Albumin/Globulin Ratio 1.0 (1.0-1.7) Procalcitonin < 0.10 ng/mL (0.00-0.10) Thyroid Stimulating Hormone (TSH) 0.303 uIU/mL (0.358-3.74) L Urine Collection Type Unknown Urine Color Yellow Urine Clarity Clear Urine pH 6.0 (<5.0-8.0) Urine Specific Brooks >=1.030 (1.000-1.030) Urine Protein Negative mg/dL (NEG-TRACE) Urine Glucose (UA) >=1000 mg/dL (NEG) Urine Ketones (Stick) >=80 mg/dL (NEG) Urine Blood Moderate (NEG) Urine Nitrite Negative (NEG) Urine Bilirubin Negative (NEG) Urine Urobilinogen Dipstick 1.0 mg/dL (0.2 mg/dL) Urine Leukocyte Esterase Negative (NEG) Urine RBC 3-5 /HPF (0-2) Urine WBC 1-4 /HPF (0-4) Urine Squamous Epithelial Cells Few /LPF Urine Bacteria Few /HPF (0-FEW) Urine Opiates Screen Neg (NEG) Urine Methadone Screen Neg (NEG) Urine Barbiturates Neg (NEG) Urine Phencyclidine Screen Neg (NEG) Urine Amphetamine/Methamphetamine Neg (NEG) Urine Benzodiazepines Screen Neg (NEG) Urine Cocaine Screen Neg (NEG) Urine Cannabinoids Screen Neg (NEG) Urine Ethyl Alcohol Neg (NEG) Phosphorus Level 2.6 mg/dL (2.6-4.7) Test 11/19/20 02:37 White Blood Count 5.3 x10^3/uL (4.0-11.0) Red Blood Count 2.97 x10^6/uL (3.50-5.40) L Hemoglobin 9.8 g/dL (12.0-15.5) L Hematocrit 28.7 % (36.0-47.0) L Mean Corpuscular Volume 97 fL (79-100) Mean Corpuscular Hemoglobin 33 pg (25-35) Mean Corpuscular Hemoglobin Concent 34 g/dL (31-37) Red Cell Distribution Width 14.4 % (11.5-14.5) Platelet Count 174 x10^3/uL (140-400) Sodium Level 134 mmol/L (136-145) L Potassium Level 3.9 mmol/L (3.5-5.1) Chloride Level 99 mmol/L (98-107) Carbon Dioxide Level 25 mmol/L (21-32) Anion Gap 10 (6-14) Blood Urea Nitrogen 51 mg/dL (7-20) #H Creatinine 0.7 mg/dL (0.6-1.0) Estimated GFR (Cockcroft-Gault) 80.9 Glucose Level 192 mg/dL (70-99) H Calcium Level 7.6 mg/dL (8.5-10.1) L Magnesium Level 1.9 mg/dL (1.8-2.4) Troponin I Quantitative < 0.017 ng/mL (0.000-0.055) Laboratory Tests 11/18/20 14:55 11/19/20 02:37 Laboratory Tests 11/18/20 14:55 11/19/20 02:37 ECHOCARDIOGRAM ECHOCARDIOGRAM <Conclusion> The left ventricle is normal size. The left ventricular systolic function is normal and the ejection fraction is within normal range. The Ejection Fraction is 50-55%. Septal motion consistent with conduction abnormality. Doppler and Color Flow revealed no significant aortic regurgitation. There is no significant aortic valvular stenosis as verified by Doppler interrogation. Doppler and Color-flow revealed trace mitral regurgitation. Doppler and Color Flow revealed trace tricuspid regurgitation. The PA pressure was estimated at 33 mmHg. DATE: 10/15/20 [id number] HEART CATH HEART CATH IMPRESSIONS: 1. Coronary artery disease. Previously placed stent in the circumflex artery seems to be patent with a borderline restenotic focal lesion in the proximal part of the stent. There is an excellent flow noted distally. The lesion does not appear to be more than 50 percent. The patient is relatively asymptomatic at this particular time, so no intervention was done. The patient will continue and maximize her medical treatment. 2. Left ventriculogram revealed normal wall motion, normal left ventricular function, and ejection fraction of 60 percent. 3. No evidence of any significant mitral regurgitation. 4. No evidence of any significant gradient across the aortic valve. RECOMMENDATION: As noted above. Continue optimized medical treatment. The undersigned physician was physically present during the entire case and has personally reviewed the procedure and formulated the interpretation and opinion expressed in this report. Date: 07/20/2009 ASSESSMENT/PLAN ASSESSMENT/PLAN 1. Acute encephalopathy; CT head without acute findings. improved 2. PAFIB; on oral Cardizem, metoprolol. presently maintaining SR 3. Dizziness, hypotension. Improved s/p IVFs 4. CAD s/p remote PCI/stent. On ASA/Plav[place]. [facility] 5. Hypertension; BP low end 6. Hyperlipidemia; statin 7. Diabetes, II; as per IM 8. Hypomagnesemia; replaced 9. Hypothyroidism; on replacement. 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 Continue Cardizem as BP allows; will convert to short acting for now Dig PRN for rate control Secondary prevention measure. continue Plavix. No ASA as patient is on Eliquis for stroke prevention Statin therapy Consider outpatient ischemic evaluation if none recently Supportive care CHEPE ALVARADO MD 11/19/20 1646: CARDIAC CONSULT ASSESSMENT/PLAN ASSESSMENT/PLAN Patient seen and examined I agree with our nurse practitioners assessment and plan as above. Acute encephalopathy; CT head without acute findings. improved PAFIB; on oral Cardizem, metoprolol. presently maintaining SR Dizziness, hypotension. Improved s/p IVFs CAD s/p remote PCI/stent. On ASA/Plavix. [place] Hypertension; BP low end. IV fluids. Continue metoprolol. Adjusting Cardizem as blood pressure tolerates. Hyperlipidemia; statin Diabetes, II; as per IM Hypothyroidism; on replacement. GREGORIA MONDRAGON APRN Nov 19, 2020 12:05 CHEPE ALVARADO MD Nov 19, 2020 16:46
--- NOTE | 2020-11-19 12:38 | NUR ---
SS following for discharge planning. SS reviewed pt chart and discussed with pt RN. Pt is from home alone and is currently requiring oxygen at two liters nasal canula. Pt was currently on services with [facility], ; fax [phone]. Pt reported that she has been to [facility], ; fax [phone], and would return if needed. PT/OT ordered. COVID19 test pending. SS will continue to follow for discharge planning.
[2020-11-19 15:00] VITALS: BP 100/51
[2020-11-19] MEDS: dilTIAZem HCL 30 MG TABLET PO SCH ×2 (16:42→23:59)
[2020-11-19 19:00] VITALS: BP 120/56
--- NOTE | 2020-11-19 19:15 | NUR ---
Pt sitting up in chair assessment completed vss poc explained call light in reach will resume care and continue to monitor pt.
[2020-11-19] MEDS: PSYLLIUM HUSK (SUGAR FREE) 1 PKT PACKET PO SCH (20:42)
[2020-11-19] MEDS: INSULIN GLARGINE SYRINGE. SQ SCH (20:46)
[2020-11-19 23:17] VITALS: BP 90/59
[2020-11-20] VITALS (8 sets, daily range): BP systolic 84–134; BP diastolic 49–65
[2020-11-20] MEDS: PANTOPRAZOLE 40 MG TABLET.DR. PO SCH (05:36)
[2020-11-20] MEDS: LEVOTHYROXINE 50 MCG TABLET PO SCH (05:36)
[2020-11-20] MEDS: dilTIAZem HCL 30 MG TABLET PO SCH ×4 (06:06→23:32)
[2020-11-20 06:18] LABS: HEMATOCRIT 22.9 % (36.0-47.0); HEMOGLOBIN 7.8 g/dL (12.0-15.5); RED BLOOD COUNT 2.39 x10^6/uL (3.50-5.40); RED CELL DISTRIBUTION WIDTH 14.2 % (11.5-14.5); WHITE BLOOD COUNT 4.8 x10^3/uL (4.0-11.0)
[2020-11-20 06:39] LABS: CALCIUM 7.4 mg/dL (8.5-10.1); CREATININE 0.8 mg/dL (0.6-1.0); GFR 69.4; POTASSIUM 3.4 mmol/L (3.5-5.1)
[2020-11-20] MEDS: INSULIN LISPRO 300 UNITS/3 ML VIAL. SQ SCH ×3 (08:00→17:13)
--- NOTE | 2020-11-20 08:59 | PDOC ---
[employer] PROGRESS NOTE Date of Service DOS: DATE: 11/20/20 TIME: 08:56 Chief Complaint Chief Complaint A/P: Acute metabolic encephalopathy - patient tested COVID-19 positive Toxic encephalopathy also suspected - noted by home health and children, not at baseline. No focal neurologic deficits to indicate CVA, possibly due to electrolyte derangement. Likely also polypharmacy considering she has 2 fentanyl patches. Her TSH is low, will reduce her levothyroxine as well Paroxysmal AFIB - currently sinus. on oral Cardizem, metoprolol. Rate remains uncontrolled. On prophylactic dose of Lovenox. CAD s/p remote PCI/stent. On ASA/Plavix. Follows with [facility] cardiology, Dr. Salter Hypertension - will monitor Hyperlipidemia; statin Diabetes - type II, not well controlled. Sees Dr. Nash through [facility]. Will continue her 30u lantus regimen and sliding scale lispro otherwise Hypothyroidism; on replacement. TSH low, will reduce given her confusion and h/o afib H/o tobaccoism; in remission Hypomagnesemia - will replace Moderate protein calorie malnutrition - given her recent SNF stay her self care is in question. She notes she only eats microwave meals and sometimes a salad her home health aide will make FEN - ADA diet PPX - eliquis FULL CODE Dispo - inpatient for confusion, may need SNF or longer term placement History of Present Illness History of Present Illness Ms Flannery is a 79 yo F w/ PMHx HTN, paroxsymal afib who presents to ED via EMS after home health aide noted she was very confused, not acting like herself. Children noted the same. Patient notes she feels dizzy and shaky. She does complain of left shoulder pain that is 9 out of 10 nonradiating. She thinks this is due to a torn rotator cuff. She notes she just saw her administrative fellow yesterday, Dr. Nash, has a continuous glucometer on her left arm. Was increased in her dosing of lantus to 30u QAM instead of QHS, she did not change yet EKG sinus rhythm rate in the 80s, not in A. 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 No ST segment or T wave changes. Urinalysis positive ketones and glucosuria no leukocyte esterase or nitrates. Urine drug screen negative, though she is wearing two fentanyl patches, 25mcg on her left deltoid and right scapula. When asked how she got the patches on she tells me she doesn't do that, she only puts on her glucose monitor, which is on her left deltoid. She is confused about the fentanyl patches. Labs with WBC 5.5, Hb 12.1, platelets 181, NA 136, K3.8, BUN 23, CR 0.7, glucose 237, albumin 3.2, magnesium 1.6, TSH 0.[address] head with no acute intracranial findings. Chest radiograph with no acute changes Admitted for further care 11/19: Patient seen and evaluated. No acute events overnight, afebrile. Rate controlled A. fib. Given 2 fentanyl patches found on her body, initially toxic encephalopathy was concern. BUN increased from 23 to 51, etiology of confusion could certainly be uremic encephalopathy. Given precipitous jump in BUN on Eliquis will check FOBT, and provide IV fluids. Calcium 7.6 today, will schedule calcium carbonate 3 times daily with meals. She feels her confusion has resolved. She states that her daughter would like for her to be placed in assisted living facility, as patient lives alone. She is not wanting to be placed in assisted living facility. PT/OT evaluation pending for SNF versus long-term placement. 11/20: Patient seen and evaluated. Tested COVID-19 positive. Afebrile. Repeat troponin undetectable. Uremia improving with fluids, FOBT pending. Cardizem converted to short acting; appreciate cardiology input on management of this patient. PT/OT to evaluate for SNF. Will transfer to [place] [address] floor. Vitals/I&O Vitals/I&O: Vital Signs Date Time Temp Pulse Resp B/P (MAP) Pulse Ox O2 Delivery O2 Flow Rate FiO2 11/20/20 07:57 98.0 89 18 114/58 (76) 98 Nasal Cannula 2.0 98.0 I & O 11/19/20 11/19/20 11/20/20 15:00 23:00 07:00 Intake Total 400 ml 260 ml 200 ml Output Total 600 ml 100 ml Balance 400 ml -340 ml 100 ml Physical Exam General: Alert, Cooperative Heart: Normal S1, Normal S2 Lungs: Clear, Wheezing Abdomen: Soft, No tenderness Extremities: No clubbing, No cyanosis Skin: No rashes, No breakdown Labs Labs: Laboratory Tests Test 11/20/20 05:20 White Blood Count 4.8 x10^3/uL (4.0-11.0) Red Blood Count 2.39 x10^6/uL (3.50-5.40) Hemoglobin 7.8 g/dL (12.0-15.5) Hematocrit 22.9 % (36.0-47.0) Mean Corpuscular Volume 96 fL (79-100) Mean Corpuscular Hemoglobin 33 pg (25-35) Mean Corpuscular Hemoglobin Concent 34 g/dL (31-37) Red Cell Distribution Width 14.2 % (11.5-14.5) Platelet Count 187 x10^3/uL (140-400) Sodium Level 140 mmol/L (136-145) Potassium Level 3.4 mmol/L (3.5-5.1) Chloride Level 105 mmol/L (98-107) Carbon Dioxide Level 29 mmol/L (21-32) Anion Gap 6 (6-14) Blood Urea Nitrogen 40 mg/dL (7-20) Creatinine 0.8 mg/dL (0.6-1.0) Estimated GFR (Cockcroft-Gault) 69.4 Glucose Level 139 mg/dL (70-99) Calcium Level 7.4 mg/dL (8.5-10.1) Assessment and Plan Assessmemt and Plan Problems Medical Problems: (1) AMS (altered mental status) Status: Acute Comment Review of Relevant I have reviewed the following items nhung (where applicable) has been applied. Medications: Current Medications Medications (Trade) Dose Ordered Sig/Myra Route PRN Reason Start Time Stop Time Status Last Admin Dose Admin Atorvastatin Calcium (Lipitor) 20 mg DAILY PO 11/19/20 09:00 11/19/20 08:19 Clopidogrel Bisulfate (Plavix) 75 mg DAILY PO 11/19/20 09:00 11/19/20 08:16 Diltiazem HCl (Cardizem 24hr Cd) 120 mg DAILY PO 11/19/20 09:00 11/19/20 10:47 DC 11/19/20 08:18 Metoprolol Succinate (Toprol Xl) 75 mg DAILY PO 11/19/20 09:00 11/19/20 08:17 Cetirizine HCl (ZyrTEC) 10 mg DAILY PO 11/19/20 09:00 11/19/20 08:15 Sertraline HCl (Zoloft) 100 mg DAILY PO 11/19/20 09:00 11/19/20 08:16 Linagliptin (Tradjenta) 5 mg DAILY PO 11/19/20 09:00 11/19/20 08:15 Sodium Chloride 500 ml @ 500 mls/hr 1X ONCE IV 11/19/20 10:45 11/19/20 11:44 DC 11/19/20 10:45 Diltiazem HCl (Cardizem) 30 mg Q6HRS PO 11/19/20 18:00 11/20/20 06:06 Justifications for Admission General Conditions Altered mental status?: Yes Justification of admission: Patient has tachycardia (> 100 beats per minute) or hypotension (SBP < 90 mm Hg) leading to inadequate systemic perfusion as indicated by severe/persistent altered mental status. Other Justification BHAVIN CARMEN MD Nov 20, 2020 08:59
[2020-11-20] MEDS: METOPROLOL SUCC 24HR ER 25 MG TAB.ER.24H. PO SCH (09:00)
[2020-11-20] MEDS: LIDOCAINE (700MG/PATCH) PATCH. TD SCH (09:31)
[2020-11-20] MEDS: SENNOSIDES/DOCUSATE 8.6/50MG TABLET. PO SCH ×2 (09:31→21:04)
[2020-11-20] MEDS: LINAGLIPTIN 5 MG TABLET PO SCH (09:31)
[2020-11-20] MEDS: CLOPIDOGREL BISULFATE 75 MG TABLET PO SCH (09:31)
[2020-11-20] MEDS: CHOLECALCIFEROL (VITAMIN D3) 1,000 UNIT TABLET PO SCH ×2 (09:31→21:04)
[2020-11-20] MEDS: APIXABAN 5 MG TABLET. PO SCH ×2 (09:31→21:04)
[2020-11-20] MEDS: ATORVASTATIN CALCIUM 20 MG TABLET PO SCH (09:32)
[2020-11-20] MEDS: GABAPENTIN 300 MG CAPSULE. PO SCH ×2 (09:32→21:04)
[2020-11-20] MEDS: SERTRALINE 50 MG TABLET. PO SCH (09:32)
[2020-11-20] MEDS: CETIRIZINE HCL 10 MG TABLET. PO SCH (09:33)
[2020-11-20] MEDS: DICLOFENAC SODIUM 1% TOPICAL GEL 100GM TUBE. TP SCH ×2 (09:33→21:05)
--- NOTE | 2020-11-20 10:32 | NUR ---
SS following up with discharge planning. SS reviewed pt chart and discussed with pt RN. Pt is currently requiring oxygen at two liters nasal canula. COVID19 test pending. PT/OT [facility]. Pt agreeable and requesting referral be sent to [facility], ; fax [phone]. SS phoned and faxed referral as requested. SS will continue to follow for discharge planning.
[2020-11-20] MEDS: traMADol 50 MG TABLET PO PRN ×2 (12:34→23:31)
--- NOTE | 2020-11-20 12:45 | NUR ---
SS following up with discharge planning. Pt is COVID19 positive. Pt transferring to room 652. SW, Raegan, to follow.
--- NOTE | 2020-11-20 13:54 | PDOC ---
CORNELIUS CRYSTAL CHILD DEVELOPMENT DIRECTOR 11/20/20 1354: CARDIO Progress Notes Date and Time Date of Service 11/20/2020 Time of Evaluation 1250 Subjective Subjective: No Chest Pain, No shortness of breath, No Palpitations Vitals Vitals Vital Signs Date Time Temp Pulse Resp B/P (MAP) Pulse Ox O2 Delivery O2 Flow Rate FiO2 11/20/20 12:34 74 134/62 11/20/20 12:34 16 96 Nasal Cannula 2.0 11/20/20 10:08 97.9 97.9 Weight Weight [ ] Input and Output Intake and Output Intake and Output 11/20/20 07:00 Intake Total 860 ml Output Total 700 ml Balance 160 ml Intake Oral 860 ml Output Urine Total 700 ml # Voids 7 Laboratory Labs Laboratory Tests Test 11/20/20 05:20 White Blood Count 4.8 x10^3/uL (4.0-11.0) Red Blood Count 2.39 x10^6/uL (3.50-5.40) Hemoglobin 7.8 g/dL (12.0-15.5) Hematocrit 22.9 % (36.0-47.0) Mean Corpuscular Volume 96 fL (79-100) Mean Corpuscular Hemoglobin 33 pg (25-35) Mean Corpuscular Hemoglobin Concent 34 g/dL (31-37) Red Cell Distribution Width 14.2 % (11.5-14.5) Platelet Count 187 x10^3/uL (140-400) Sodium Level 140 mmol/L (136-145) Potassium Level 3.4 mmol/L (3.5-5.1) Chloride Level 105 mmol/L (98-107) Carbon Dioxide Level 29 mmol/L (21-32) Anion Gap 6 (6-14) Blood Urea Nitrogen 40 mg/dL (7-20) Creatinine 0.8 mg/dL (0.6-1.0) Estimated GFR (Cockcroft-Gault) 69.4 Glucose Level 139 mg/dL (70-99) Calcium Level 7.4 mg/dL (8.5-10.1) Microbiology Micro Microbiology 11/18/20 Blood Culture - Preliminary, Resulted NO GROWTH AFTER 1 DAY Physical Exam HEENT: Neck Supple W Full Motion Chest: Symmetric LUNGS: Other (diminished bases) Heart: RRR (SR) Abdomen: Soft N/T Extremities: No Calf Tenderness Neurology: alert, oriented, follow commands Assessment Assessment 1. Acute encephalopathy; CT head without acute findings.Mentation back to baseline 2. PAFIB; presently maintaining SR 3. Dizziness, hypotension: due to low volume, better with IV hydration 4. CAD s/p remote PCI/stent. On preadmission ASA/Plavix. [facility] 5. Hypertension; controlled 6. Hyperlipidemia; statin 7. Diabetes, II; as per IM 8. Hypomagnesemia; replaced 9. Hypothyroidism; on replacement. 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 Positive covid-19: New 12. Normocytic anemia: no obvious bleed but Hgb trending down now to 7.8 Recommendations 1. Continue Metoprolol and cardizem pending BP trend 2. Check hemogram again and check INR. May need to hold eliquis and plavix if continues to trend down 3. Secondary prevention measure 4. Consider outpatient ischemic evaluation if none recently 5. Supportive care Justicifation of Admission Dx: Justifications for Admission: Justification of Admission Dx: Yes Sepsis: Infection DKA: DKA CHEPE ALVARADO MD 11/20/20 1720: CARDIO Progress Notes Assessment Assessment Patient seen and evaluated. I agree with our nurse practitioners assessment and plan. Positive COVID-19 test this morning. Continuing as per the primary service. Acute encephalopathy; CT head without acute findings.Mentation back to baseline PAFIB; presently maintaining SR Dizziness, hypotension: due to low volume, better with IV hydration CAD s/p remote PCI/stent. On preadmission ASA/Plavix. Follows with Dr. Gaetano Callejas Hypertension; controlled Hyperlipidemia; statin Diabetes, II; as per IM Hypothyroidism; on replacement. Normocytic anemia: no obvious bleed but Hgb trending down now to 7.8. May need to hold Eliquis and/or Plavix if trend continues. CORNELIUS CRYSTAL APRN Nov 20, 2020 13:54 CHEPE ALVARADO MD Nov 20, 2020 17:20
[2020-11-20] MEDS: IV NORMAL SALINE 1000ML BAG 1,000 ML IV SCH (15:29)
[2020-11-20 15:47] LABS: HEMATOCRIT 21.3 % (36.0-47.0); HEMOGLOBIN 7.3 g/dL (12.0-15.5); RED BLOOD COUNT 2.25 x10^6/uL (3.50-5.40); RED CELL DISTRIBUTION WIDTH 13.7 % (11.5-14.5); WHITE BLOOD COUNT 5.5 x10^3/uL (4.0-11.0)
[2020-11-20 15:54] LABS: PROTHROMBIN TIME PATIENT 15.3 SEC (11.7-14.0)
[2020-11-20] MEDS: ACETAMINOPHEN 325 MG TABLET. PO PRN (17:12)
[2020-11-20] MEDS: PSYLLIUM HUSK (SUGAR FREE) 1 PKT PACKET PO SCH ×2 (21:00→21:04)
[2020-11-20] MEDS: INSULIN GLARGINE SYRINGE. SQ SCH (21:36)
[2020-11-21] VITALS (13 sets, daily range): BP systolic 11–120; BP diastolic 46–62
[2020-11-21] MEDS: IV NORMAL SALINE 1000ML BAG 1,000 ML IV SCH ×3 (05:26→22:04)
[2020-11-21] MEDS: PANTOPRAZOLE 40 MG TABLET.DR. PO SCH ×2 (05:27→09:39)
[2020-11-21] MEDS: dilTIAZem HCL 30 MG TABLET PO SCH ×3 (05:27→18:15)
[2020-11-21] MEDS: traMADol 50 MG TABLET PO PRN (05:27)
[2020-11-21] MEDS: LEVOTHYROXINE 50 MCG TABLET PO SCH (05:27)
[2020-11-21 06:19] LABS: CALCIUM 7.3 mg/dL (8.5-10.1); CREATININE 0.7 mg/dL (0.6-1.0); GFR 80.9; POTASSIUM 3.3 mmol/L (3.5-5.1)
[2020-11-21 06:44] LABS: RED BLOOD COUNT 2.01 x10^6/uL (3.50-5.40); RED CELL DISTRIBUTION WIDTH 14.4 % (11.5-14.5); WHITE BLOOD COUNT 6.3 x10^3/uL (4.0-11.0)
[2020-11-21 06:55] LABS: HEMATOCRIT 19.7 % (36.0-47.0)
[2020-11-21] MEDS: INSULIN LISPRO 300 UNITS/3 ML VIAL. SQ SCH ×3 (08:00→18:17)
[2020-11-21] MEDS: APIXABAN 5 MG TABLET. PO SCH ×2 (08:16→22:05)
[2020-11-21] MEDS: CLOPIDOGREL BISULFATE 75 MG TABLET PO SCH (09:00)
[2020-11-21] MEDS: LIDOCAINE (700MG/PATCH) PATCH. TD SCH (09:37)
[2020-11-21] MEDS: POLYETHYLENE GLYCOL 3350 17 GM PACKET. PO SCH (09:37)
[2020-11-21] MEDS: CHOLECALCIFEROL (VITAMIN D3) 1,000 UNIT TABLET PO SCH ×2 (09:37→22:06)
[2020-11-21] MEDS: GABAPENTIN 300 MG CAPSULE. PO SCH ×2 (09:38→22:06)
[2020-11-21] MEDS: METOPROLOL SUCC 24HR ER 25 MG TAB.ER.24H. PO SCH (09:38)
[2020-11-21] MEDS: ATORVASTATIN CALCIUM 20 MG TABLET PO SCH (09:38)
[2020-11-21] MEDS: LINAGLIPTIN 5 MG TABLET PO SCH (09:39)
[2020-11-21] MEDS: CETIRIZINE HCL 10 MG TABLET. PO SCH (09:39)
[2020-11-21] MEDS: SERTRALINE 50 MG TABLET. PO SCH (09:39)
[2020-11-21] MEDS: SENNOSIDES/DOCUSATE 8.6/50MG TABLET. PO SCH ×2 (09:39→22:06)
[2020-11-21] MEDS: DICLOFENAC SODIUM 1% TOPICAL GEL 100GM TUBE. TP SCH ×2 (09:40→22:04)
[2020-11-21 09:49] LABS: RED BLOOD COUNT 2.01 x10^6/uL (3.50-5.40); RED CELL DISTRIBUTION WIDTH 14.3 % (11.5-14.5); WHITE BLOOD COUNT 4.5 x10^3/uL (4.0-11.0)
[2020-11-21 10:15] LABS: HEMATOCRIT 19.1 % (36.0-47.0); HEMOGLOBIN 6.6 g/dL (12.0-15.5)
[2020-11-21] MEDS ORDERED: PANTOPRAZOLE 40 MG TABLET.DR. PO ONE (12:15)
[2020-11-21] MEDS ORDERED: CYANOCOBALAMIN (VITAMIN B-12) 1,000 MCG/ML VIAL IM ONE (12:15)
[2020-11-21] MEDS: ANTI-COAG MONITOR BY PHARMACY. MC PRN (12:55)
--- NOTE | 2020-11-21 13:08 | PDOC ---
[employer] PROGRESS NOTE Date of Service DOS: DATE: 11/21/20 TIME: 13:07 Chief Complaint Chief Complaint A/P: Acute metabolic encephalopathy - patient tested COVID-19 positive Toxic encephalopathy also suspected - noted by home health and children, not at baseline. No focal neurologic deficits to indicate CVA, possibly due to electrolyte derangement. Likely also polypharmacy considering she has 2 fentanyl patches. Her TSH is low, will reduce her levothyroxine as well Paroxysmal AFIB - currently sinus. on oral Cardizem, metoprolol. Rate remains uncontrolled. On prophylactic dose of Lovenox. CAD s/p remote PCI/stent. On ASA/Plavix. Follows with [facility] cardiology, Dr. Salter Hypertension - will monitor Hyperlipidemia; statin Diabetes - type II, not well controlled. Sees Dr. Nash through [facility]. Will continue her 30u lantus regimen and sliding scale lispro otherwise Hypothyroidism; on replacement. TSH low, will reduce given her confusion and h/o afib H/o tobaccoism; in remission Hypomagnesemia - will replace Moderate protein calorie malnutrition - given her recent SNF stay her self care is in question. She notes she only eats microwave meals and sometimes a salad her home health aide will make FEN - ADA diet PPX - eliquis FULL CODE Dispo - inpatient for confusion, may need SNF or longer term placement History of Present Illness History of Present Illness 11/21, PT andOT, cont current, OOB to chiar anemia today, w/u with PPI and vitamins, check retic. 1 u PRBC today pt pleasant, plan discussed Ms Flannery is a 79 yo F w/ PMHx HTN, paroxsymal afib who presents to ED via EMS after home health aide noted she was very confused, not acting like herself. Children noted the same. Patient notes she feels dizzy and shaky. She does complain of left shoulder pain that is 9 out of 10 nonradiating. She thinks this is due to a torn rotator cuff. She notes she just saw her field secretary yesterday, Dr. Nash, has a continuous glucometer on her left arm. Was increased in her dosing of lantus to 30u QAM instead of QHS, she did not change yet EKG sinus rhythm rate in the 80s, not in A. 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 No ST segment or T wave changes. Urinalysis positive ketones and glucosuria no leukocyte esterase or nitrates. Urine drug screen negative, though she is wearing two fentanyl patches, 25mcg on her left deltoid and right scapula. When asked how she got the patches on she tells me she doesn't do that, she only puts on her glucose monitor, which is on her left deltoid. She is confused about the fentanyl patches. Labs with WBC 5.5, Hb 12.1, platelets 181, NA 136, K3.8, BUN 23, CR 0.7, glucose 237, albumin 3.2, magnesium 1.6, TSH 0.[address] head with no acute intracranial findings. Chest radiograph with no acute changes Admitted for further care 11/19: Patient seen and evaluated. No acute events overnight, afebrile. Rate controlled A. fib. Given 2 fentanyl patches found on her body, initially toxic encephalopathy was concern. BUN increased from 23 to 51, etiology of confusion could certainly be uremic encephalopathy. Given precipitous jump in BUN on Eliquis will check FOBT, and provide IV fluids. Calcium 7.6 today, will schedule calcium carbonate 3 times daily with meals. She feels her confusion has resolved. She states that her daughter would like for her to be placed in assisted living facility, as patient lives alone. She is not wanting to be placed in assisted living facility. PT/OT evaluation pending for SNF versus long-term placement. 11/20: Patient seen and evaluated. Tested COVID-19 positive. Afebrile. Repeat troponin undetectable. Uremia improving with fluids, FOBT pending. Cardizem converted to short acting; appreciate cardiology input on management of this patient. PT/OT to evaluate for SNF. Will transfer to [facility]- floor. Vitals/I&O Vitals/I&O: Vital Signs Date Time Temp Pulse Resp B/P (MAP) Pulse Ox O2 Delivery O2 Flow Rate FiO2 11/21/20 12:00 98.1 73 18 104/54 98.1 11/21/20 11:00 98 Nasal Cannula 2.0 I & O 11/20/20 11/20/20 11/21/20 15:00 23:00 07:00 Intake Total 300 ml 520 ml 660 ml Balance 300 ml 520 ml 660 ml Physical Exam General: Alert, Oriented X3, Cooperative, No acute distress Heart: Normal S1, Normal S2 Lungs: Clear, Other (good volume ) Abdomen: Soft, No tenderness Extremities: No clubbing, No cyanosis Skin: No rashes, No breakdown Labs Labs: Laboratory Tests Test 11/20/20 15:25 11/20/20 20:33 11/21/20 03:30 11/21/20 08:03 White Blood Count 5.5 x10^3/uL (4.0-11.0) 6.3 x10^3/uL (4.0-11.0) Red Blood Count 2.25 x10^6/uL (3.50-5.40) 2.01 x10^6/uL (3.50-5.40) Hemoglobin 7.3 g/dL (12.0-15.5) 7.0 g/dL (12.0-15.5) Hematocrit 21.3 % (36.0-47.0) 19.7 % (36.0-47.0) Mean Corpuscular Volume 95 fL (79-100) 98 fL (79-100) Mean Corpuscular Hemoglobin 33 pg (25-35) 35 pg (25-35) Mean Corpuscular Hemoglobin Concent 34 g/dL (31-37) 35 g/dL (31-37) Red Cell Distribution Width 13.7 % (11.5-14.5) 14.4 % (11.5-14.5) Platelet Count 197 x10^3/uL (140-400) 209 x10^3/uL (140-400) Prothrombin Time 15.3 SEC (11.7-14.0) Prothromb Time International Ratio 1.2 (0.8-1.1) Glucose (Fingerstick) 155 mg/dL (70-99) 164 mg/dL (70-99) Sodium Level 139 mmol/L (136-145) Potassium Level 3.3 mmol/L (3.5-5.1) Chloride Level 106 mmol/L (98-107) Carbon Dioxide Level 25 mmol/L (21-32) Anion Gap 8 (6-14) Blood Urea Nitrogen 25 mg/dL (7-20) Creatinine 0.7 mg/dL (0.6-1.0) Estimated GFR (Cockcroft-Gault) 80.9 Glucose Level 147 mg/dL (70-99) Calcium Level 7.3 mg/dL (8.5-10.1) Test 11/21/20 09:15 11/21/20 11:49 White Blood Count 4.5 x10^3/uL (4.0-11.0) Red Blood Count 2.01 x10^6/uL (3.50-5.40) Hemoglobin 6.6 g/dL (12.0-15.5) Hematocrit 19.1 % (36.0-47.0) Mean Corpuscular Volume 95 fL (79-100) Mean Corpuscular Hemoglobin 33 pg (25-35) Mean Corpuscular Hemoglobin Concent 35 g/dL (31-37) Red Cell Distribution Width 14.3 % (11.5-14.5) Platelet Count 190 x10^3/uL (140-400) Glucose (Fingerstick) 178 mg/dL (70-99) Assessment and Plan Assessmemt and Plan Problems Medical Problems: (1) AMS (altered mental status) Status: Acute Comment Review of Relevant I have reviewed the following items nhung (where applicable) has been applied. Medications: Current Medications Medications (Trade) Dose Ordered Sig/Myra Route PRN Reason Start Time Stop Time Status Last Admin Dose Admin Polyethylene Glycol (miraLAX PACKET) 17 gm DAILY PO 11/21/20 09:00 11/21/20 09:37 Info (Anti-Coagulation Monitoring By Pharmacy) 1 each PRN DAILY PRN MC SEE COMMENTS 11/21/20 13:00 11/21/20 12:55 Justifications for Admission General Conditions Altered mental status?: Yes Justification of admission: Patient has tachycardia (> 100 beats per minute) or hypotension (SBP < 90 mm Hg) leading to inadequate systemic perfusion as indicated by severe/persistent altered mental status. Other Justification ALEYDA CEBALLOS MD Nov 21, 2020 13:08
[2020-11-21] MEDS: VITAMIN B12,B9,B6 COMPLEX 1 TABLET. PO SCH (13:26)
[2020-11-21 15:22] LABS: HEMATOCRIT 24.9 % (36.0-47.0); HEMOGLOBIN 8.5 g/dL (12.0-15.5)
--- NOTE | 2020-11-21 15:40 | PDOC ---
PROGRESS NOTES Date of Service DATE: 11/21/20 TIME: 15:37 Subjective Subjective Patient seen and evaluated. Objective Objective Vital Signs Date Time Temp Pulse Resp B/P (MAP) Pulse Ox O2 Delivery O2 Flow Rate FiO2 11/21/20 13:43 76 18 100/55 11/21/20 12:00 98.1 98.1 11/21/20 11:00 98 Nasal Cannula 2.0 Intake and Output 11/21/20 07:00 Intake Total 1480 ml Balance 1480 ml Intake Oral 1480 ml # Voids 7 Physical Exam Physical Exam Visual examination secondary to Covid guidelines. Assessment Assessment Problems Medical Problems: (1) AMS (altered mental status) Status: Acute Assessment Acute encephalopathy; CT head without acute findings.Mentation back to baseline PAFIB; presently in SR. continue present treatment. Dizziness, hypotension: due to low volume, better with IV hydration CAD s/p remote PCI/stent. On preadmission ASA/Plavix. Follows with [facility]' cardiology, Dr. Salter Hypertension; controlled Hyperlipidemia; statin Diabetes, II; as per IM Hypothyroidism; on replacement. Positive covid-19: New. Continue present treatment. Normocytic anemia: no obvious bleed but Hgb trending down. Comment Review of Relevant I have reviewed the following items nhung (where applicable) has been applied. Labs Laboratory Tests Test 11/20/20 05:20 11/20/20 15:25 11/20/20 20:33 11/21/20 03:30 White Blood Count 4.8 x10^3/uL (4.0-11.0) 5.5 x10^3/uL (4.0-11.0) 6.3 x10^3/uL (4.0-11.0) Red Blood Count 2.39 x10^6/uL (3.50-5.40) 2.25 x10^6/uL (3.50-5.40) 2.01 x10^6/uL (3.50-5.40) Hemoglobin 7.8 g/dL (12.0-15.5) 7.3 g/dL (12.0-15.5) 7.0 g/dL (12.0-15.5) Hematocrit 22.9 % (36.0-47.0) 21.3 % (36.0-47.0) 19.7 % (36.0-47.0) Mean Corpuscular Volume 96 fL (79-100) 95 fL (79-100) 98 fL (79-100) Mean Corpuscular Hemoglobin 33 pg (25-35) 33 pg (25-35) 35 pg (25-35) Mean Corpuscular Hemoglobin Concent 34 g/dL (31-37) 34 g/dL (31-37) 35 g/dL (31-37) Red Cell Distribution Width 14.2 % (11.5-14.5) 13.7 % (11.5-14.5) 14.4 % (11.5-14.5) Platelet Count 187 x10^3/uL (140-400) 197 x10^3/uL (140-400) 209 x10^3/uL (140-400) Sodium Level 140 mmol/L (136-145) 139 mmol/L (136-145) Potassium Level 3.4 mmol/L (3.5-5.1) 3.3 mmol/L (3.5-5.1) Chloride Level 105 mmol/L (98-107) 106 mmol/L (98-107) Carbon Dioxide Level 29 mmol/L (21-32) 25 mmol/L (21-32) Anion Gap 6 (6-14) 8 (6-14) Blood Urea Nitrogen 40 mg/dL (7-20) 25 mg/dL (7-20) Creatinine 0.8 mg/dL (0.6-1.0) 0.7 mg/dL (0.6-1.0) Estimated GFR (Cockcroft-Gault) 69.4 80.9 Glucose Level 139 mg/dL (70-99) 147 mg/dL (70-99) Calcium Level 7.4 mg/dL (8.5-10.1) 7.3 mg/dL (8.5-10.1) Prothrombin Time 15.3 SEC (11.7-14.0) Prothromb Time International Ratio 1.2 (0.8-1.1) Glucose (Fingerstick) 155 mg/dL (70-99) Test 11/21/20 08:03 11/21/20 09:15 11/21/20 11:49 11/21/20 15:10 Glucose (Fingerstick) 164 mg/dL (70-99) 178 mg/dL (70-99) White Blood Count 4.5 x10^3/uL (4.0-11.0) Red Blood Count 2.01 x10^6/uL (3.50-5.40) Hemoglobin 6.6 g/dL (12.0-15.5) 8.5 g/dL (12.0-15.5) Hematocrit 19.1 % (36.0-47.0) 24.9 % (36.0-47.0) Mean Corpuscular Volume 95 fL (79-100) Mean Corpuscular Hemoglobin 33 pg (25-35) Mean Corpuscular Hemoglobin Concent 35 g/dL (31-37) 34 g/dL (31-37) Red Cell Distribution Width 14.3 % (11.5-14.5) Platelet Count 190 x10^3/uL (140-400) Laboratory Tests Test 11/20/20 20:33 11/21/20 03:30 11/21/20 08:03 11/21/20 09:15 Glucose (Fingerstick) 155 mg/dL (70-99) 164 mg/dL (70-99) White Blood Count 6.3 x10^3/uL (4.0-11.0) 4.5 x10^3/uL (4.0-11.0) Red Blood Count 2.01 x10^6/uL (3.50-5.40) 2.01 x10^6/uL (3.50-5.40) Hemoglobin 7.0 g/dL (12.0-15.5) 6.6 g/dL (12.0-15.5) Hematocrit 19.7 % (36.0-47.0) 19.1 % (36.0-47.0) Mean Corpuscular Volume 98 fL (79-100) 95 fL (79-100) Mean Corpuscular Hemoglobin 35 pg (25-35) 33 pg (25-35) Mean Corpuscular Hemoglobin Concent 35 g/dL (31-37) 35 g/dL (31-37) Red Cell Distribution Width 14.4 % (11.5-14.5) 14.3 % (11.5-14.5) Platelet Count 209 x10^3/uL (140-400) 190 x10^3/uL (140-400) Sodium Level 139 mmol/L (136-145) Potassium Level 3.3 mmol/L (3.5-5.1) Chloride Level 106 mmol/L (98-107) Carbon Dioxide Level 25 mmol/L (21-32) Anion Gap 8 (6-14) Blood Urea Nitrogen 25 mg/dL (7-20) Creatinine 0.7 mg/dL (0.6-1.0) Estimated GFR (Cockcroft-Gault) 80.9 Glucose Level 147 mg/dL (70-99) Calcium Level 7.3 mg/dL (8.5-10.1) Test 11/21/20 11:49 11/21/20 15:10 Glucose (Fingerstick) 178 mg/dL (70-99) Hemoglobin 8.5 g/dL (12.0-15.5) Hematocrit 24.9 % (36.0-47.0) Mean Corpuscular Hemoglobin Concent 34 g/dL (31-37) Microbiology 11/18/20 Blood Culture - Preliminary, Resulted NO GROWTH AFTER 2 DAYS Medications Current Medications Sodium Chloride 1,000 ml @ 1,000 mls/hr 1X ONCE IV Last administered on 11/18/20at 15:50; Start 11/18/20 at 15:00; Stop 11/18/20 at 15:59; Status DC Acetaminophen (Tylenol) 500 mg 1X ONCE PO Last administered on 11/18/20at 17:24; Start 11/18/20 at 17:15; Stop 11/18/20 at 17:16; Status DC Magnesium Sulfate 50 ml @ 25 mls/hr 1X ONCE IV Last administered on 11/18/20at 18:08; Start 11/18/20 at 18:00; Stop 11/18/20 at 19:59; Status DC Psyllium Hydrophilic Mucilloid (Metamucil Fiber Packet) 1 pkt QHS PO Last administered on 11/18/20at 21:10; Start 11/18/20 at 21:00 Olanzapine (ZyPREXA ZYDIS) 5 mg PRN BID PRN PO ANXIETY / AGITATION Last administered on 11/20/20at 21:04; Start 11/18/20 at 17:45 Ondansetron HCl (Zofran) 4 mg PRN Q6HRS PRN IVP NAUSEA/VOMITING Last administered on 11/18/20 21:09; Start 11/18/20 at 17:45 Calcium Carbonate/ Glycine (Tums) 500 mg PRN Q3HRS PRN PO UPSET STOMACH; Start 11/18/20 at 17:45 Acetaminophen (Tylenol) 650 mg PRN Q6HRS PRN PO Headaches, Temp > 101.5F Last administered on 11/20/20 17:12; Start 11/18/20 at 17:45 Senna/Docusate Sodium (Senna Plus) 1 tab BID PO Last administered on 11/21/20 09:39; Start 11/18/20 at 21:00 Magnesium Hydroxide (Milk Of Magnesia) 2,400 mg PRN Q12HR PRN PO CONSTIPATION; Start 11/18/20 at 17:45 Insulin Human Lispro (HumaLOG) 0-9 UNITS TIDWMEALS SQ Last administered on 11/21/20 13:23; Start 11/19/20 at 08:00 Dextrose (Dextrose 50%-Water Syringe) 12.5 gm PRN Q15MIN PRN IV SEE COMMENTS; Start 11/18/20 at 17:45 Apixaban (Eliquis) 5 mg BID PO Last administered on 11/20/20 21:04; Start 11/18/20 at 21:00 Atorvastatin Calcium (Lipitor) 20 mg DAILY PO Last administered on 11/21/20 09:38; Start 11/19/20 at 09:00 Vitamin D (Vitamin D3) 2,000 unit BID PO Last administered on 11/21/20 09:37; Start 11/18/20 at 21:00 Clopidogrel Bisulfate (Plavix) 75 mg DAILY PO Last administered on 11/20/20 09:31; Start 11/19/20 at 09:00 Diltiazem HCl (Cardizem 24hr Cd) 120 mg DAILY PO Last administered on 11/19/20 08:18; Start 11/19/20 at 09:00; Stop 11/19/20 at 10:47; Status DC Gabapentin (Neurontin) 300 mg BID PO Last administered on 11/21/20 09:38; Start 11/18/20 at 21:00 Insulin Glargine (Lantus Syringe) 26 unit QHS SQ ; Start 11/18/20 at 21:00; Stop 11/18/20 at 18:04; Status DC Levothyroxine Sodium (Synthroid) 50 mcg DAILY06 PO Last administered on 11/21/20 t 05:27; Start 11/19/20 at 06:00 Metoprolol Succinate (Toprol Xl) 75 mg DAILY PO Last administered on 11/21/20 09:38; Start 11/19/20 at 09:00 Pantoprazole Sodium (Protonix) 40 mg DAILYAC PO Last administered on 11/21/20 09:39; Start 11/19/20 at 07:30 Cetirizine HCl (ZyrTEC) 10 mg DAILY PO Last administered on 11/21/20 09:39; Start 11/19/20 at 09:00 Sertraline HCl (Zoloft) 100 mg DAILY PO Last administered on 11/21/20 09:39; Start 11/19/20 at 09:00 Linagliptin (Tradjenta) 5 mg DAILY PO Last administered on 11/21/20 09:39; Start 11/19/20 at 09:00 Insulin Glargine (Lantus Syringe) 30 unit QHS SQ Last administered on 11/20/20 21:36; Start 11/18/20 at 21:00 Lidocaine (Lidoderm) 1 patch DAILY TD Last administered on 11/21/20 09:37; Start 11/18/20 at 18:00 Diclofenac Sodium (Voltaren) 1 poly BID TP Last administered on 11/21/20 09:40; Start 11/18/20 at 21:00 Tramadol HCl (Ultram) 50 mg PRN Q6HRS PRN PO MILD TO MODERATE PAIN Last administered on 11/21/20 05:27; Start 11/18/20 at 18:00 Prochlorperazine Edisylate (Compazine) 10 mg 1X ONCE IV ; Start 11/18/20 at 18:00; Stop 11/18/20 at 18:09; Status DC Ondansetron HCl (Zofran) 4 mg PRN Q8HRS PRN IV NAUSEA/VOMITING; Start 11/18/20 at 19:15; Stop 11/19/20 at 19:14; Status UNV Acetaminophen (Tylenol) 650 mg PRN Q4HRS PRN PO FEVER > 100.3'F; Start 11/18/20 at 19:15; Stop 11/19/20 at 19:14; Status UNV Sodium Chloride 1,000 ml @ 100 mls/hr Q10H IV Last administered on 11/21/20at 13:28; Start 11/19/20 at 08:30 Sodium Chloride 500 ml @ 500 mls/hr 1X ONCE IV Last administered on 11/19/20at 10:45; Start 11/19/20 at 10:45; Stop 11/19/20 at 11:44; Status DC Diltiazem HCl (Cardizem) 30 mg Q6HRS PO Last administered on 11/21/20at 13:27; Start 11/19/20 at 18:00 Polyethylene Glycol (miraLAX PACKET) 17 gm DAILY PO Last administered on 11/21/20at 09:37; Start 11/21/20 at 09:00 Pantoprazole Sodium (Protonix) 40 mg DAILYAC PO ; Start 11/22/20 at 07:30; Status Cancel Pantoprazole Sodium (Protonix) 40 mg 1X ONCE PO ; Start 11/21/20 at 12:15; Stop 11/21/20 at 12:13; Status DC Vitamin B Complex (Folbic Tablet) 1 tab DAILY PO Last administered on 11/21/20at 13:26; Start 11/21/20 at 12:15 Cyanocobalamin (Vitamin B-12) 1,000 mcg 1X ONCE IM Last administered on 11/21/20at 13:26; Start 11/21/20 at 12:15; Stop 11/21/20 at 12:16; Status DC Info (Anti-Coagulation Monitoring By Pharmacy) 1 each PRN DAILY PRN MC SEE COMMENTS Last administered on 11/21/20at 12:55; Start 11/21/20 at 13:00 Active Scripts Active Lantus (Insulin Glargine,Hum.rec.anlog) 100 Unit/1 Ml Vial 26 Unit SQ QHS 30 Day s Hydrocodone-Apap 5-325 (Hydrocodone Bit/Acetaminophen) 1 Tab Tablet 1 Tab PO PRN Q6HRS PRN 14 Days Diltiazem 24HR Cd (Diltiazem Hcl) 120 Mg Cap.er.24h 120 Mg PO DAILY 30 Days Metoprolol Succinate ( Xl ) (Metoprolol Succinate) 25 Mg Tab.er.24h 75 Mg PO DAILY 30 Days Eliquis (Apixaban) 5 Mg Tablet 5 Mg PO BID 30 Days Alprazolam 0.25 Mg Tablet 0.25 Mg PO PRN Q6HRS PRN Reported Furosemide 40 Mg Tablet 1 Tab PO PRN DAILY Klor-Con 10 (Potassium Chloride) 10 Meq Tablet.er 1 Tab PO PRN DAILY PRN 30 Days Vitamin D3 (Cholecalciferol (Vitamin D3)) 1,000 Unit Tablet 2 Tab PO BID Turmeric (Turmeric Root Extract) 500 Mg Capsule 500 Mg PO DAILY Multi-Day Vitamins (Multivitamin) 1 Each Tablet 1 Tab PO DAILY Januvia (Sitagliptin Phosphate) 50 Mg Tablet 1 Tab PO DAILY Zoloft (Sertraline Hcl) 100 Mg Tablet 1 Tab PO DAILY Pantoprazole Sodium (Pantoprazole Sodium) 40 Mg Tablet.dr 1 Tab PO DAILY Oxybutynin Chloride Er (Oxybutynin Chloride) 10 Mg Tab.er.24 1 Tab PO DAILY Toprol Xl (Metoprolol Succinate) 50 Mg Tab.er.24h 1 Tab PO DAILY Levothyroxine Sodium 75 Mcg Tablet 1 Tab PO DAILY Gabapentin (Gabapentin) 300 Mg Capsule 300 Mg PO BID 300mg in am, 600mg at bedtime Fish Oil (Bend-3 Fatty Acids) 500 Mg Capsule.dr 500 Mg PO FENTANYL 25mcg/hr (Fentanyl) 1 Each Patch.td72 1 Patch TD Q72H Clopidogrel (Clopidogrel Bisulfate) 75 Mg Tablet 1 Tab PO DAILY Claritin (Loratadine) 10 Mg Tablet 1 Tab PO DAILY Atorvastatin Calcium 20 Mg Tablet 1 Tab PO DAILY Metformin Hcl Er (Metformin Hcl) 500 Mg Tab.er.24 1,000 Mg PO BID Vitals/I & O Vital Sign - Last 24 Hours 11/20/20 11/20/20 11/20/20 11/20/20 17:12 19:50 20:00 23:19 Temp 98.2 99.0 98.2 99.0 Pulse 82 88 80 Resp 20 18 B/P (MAP) 117/65 101/56 (71) 114/53 (73) Pulse Ox 99 97 O2 Delivery Nasal Cannula Nasal Cannula Nasal Cannula O2 Flow Rate 2.0 2.0 2.0 11/20/20 11/20/20 11/21/20 11/21/20 23:31 23:32 00:31 03:23 Temp 98.6 98.6 Pulse 80 76 Resp 20 18 B/P (MAP) 114/53 113/57 (75) Pulse Ox 97 O2 Delivery Nasal Cannula Nasal Cannula Nasal Cannula O2 Flow Rate 2.0 11/21/20 11/21/20 11/21/20 11/21/20 05:27 05:27 07:00 07:15 Temp 98.9 98.9 Pulse 76 79 Resp 22 13 B/P (MAP) 113/57 109/53 (71) Pulse Ox 97 O2 Delivery Nasal Cannula Nasal Cannula Nasal Cannula O2 Flow Rate 2.0 2.0 11/21/20 11/21/20 11/21/20 11/21/20 08:00 09:38 11:00 11:45 Temp 98.5 98.2 98.5 98.2 Pulse 79 79 72 Resp 18 22 B/P (MAP) 109/53 98/52 (67) 11/59 Pulse Ox 98 O2 Delivery Nasal Cannula Nasal Cannula O2 Flow Rate 2.0 2.0 11/21/20 11/21/20 11/21/20 11/21/20 12:00 12:28 12:43 12:58 Temp 98.1 98.1 Pulse 73 86 82 82 Resp 18 28 19 19 B/P (MAP) 104/54 120/57 101/48 101/48 11/21/20 11/21/20 11/21/20 13:13 13:27 13:43 Pulse 78 73 76 Resp 16 18 B/P (MAP) 103/51 104/54 100/55 Intake and Output 11/20/20 11/20/20 11/21/20 15:00 23:00 07:00 Intake Total 300 ml 520 ml 660 ml Balance 300 ml 520 ml 660 ml Justifications for Admission General Conditions Altered mental status?: Yes Justification of admission: Patient has tachycardia (> 100 beats per minute) or hypotension (SBP < 90 mm Hg) leading to inadequate systemic perfusion as indicated by severe/persistent altered mental status. Other Justification CHEPE ALVARADO MD Nov 21, 2020 15:40
[2020-11-21] MEDS ORDERED: POTASSIUM BICARB 20 MEQ EFFERVESCENT TABLET. PEG ONE (18:00)
[2020-11-21 19:56] LABS: FECAL OB PT POSITIVE (NEG)
[2020-11-21] MEDS: PSYLLIUM HUSK (SUGAR FREE) 1 PKT PACKET PO SCH (22:05)
[2020-11-21] MEDS: INSULIN GLARGINE SYRINGE. SQ SCH (23:44)
[2020-11-22] MEDS: dilTIAZem HCL 30 MG TABLET PO SCH ×4 (00:13→17:12)
[2020-11-22 03:29] VITALS: BP 117/65
[2020-11-22 04:21] LABS: HEMATOCRIT 23.1 % (36.0-47.0); RED BLOOD COUNT 2.42 x10^6/uL (3.50-5.40); RED CELL DISTRIBUTION WIDTH 14.2 % (11.5-14.5); WHITE BLOOD COUNT 4.8 x10^3/uL (4.0-11.0)
[2020-11-22 04:32] LABS: CALCIUM 7.2 mg/dL (8.5-10.1); CREATININE 0.7 mg/dL (0.6-1.0); GFR 80.9; POTASSIUM 3.9 mmol/L (3.5-5.1)
[2020-11-22] MEDS: LEVOTHYROXINE 50 MCG TABLET PO SCH (06:14)
[2020-11-22] MEDS: IV NORMAL SALINE 1000ML BAG 1,000 ML IV SCH ×2 (06:21→17:13)
[2020-11-22 07:15] VITALS: BP 124/88
[2020-11-22] MEDS ORDERED: PANTOPRAZOLE 40 MG TABLET.DR. PO SCH (07:30)
[2020-11-22] MEDS: INSULIN LISPRO 300 UNITS/3 ML VIAL. SQ SCH ×3 (08:00→17:00)
[2020-11-22] MEDS: LINAGLIPTIN 5 MG TABLET PO SCH (08:36)
[2020-11-22] MEDS: SERTRALINE 50 MG TABLET. PO SCH (08:37)
[2020-11-22] MEDS: SENNOSIDES/DOCUSATE 8.6/50MG TABLET. PO SCH ×2 (08:37→21:17)
[2020-11-22] MEDS: CHOLECALCIFEROL (VITAMIN D3) 1,000 UNIT TABLET PO SCH ×2 (08:37→21:17)
[2020-11-22] MEDS: VITAMIN B12,B9,B6 COMPLEX 1 TABLET. PO SCH (08:37)
[2020-11-22] MEDS: ATORVASTATIN CALCIUM 20 MG TABLET PO SCH (08:37)
[2020-11-22] MEDS: CETIRIZINE HCL 10 MG TABLET. PO SCH (08:38)
[2020-11-22] MEDS: METOPROLOL SUCC 24HR ER 25 MG TAB.ER.24H. PO SCH (08:38)
[2020-11-22] MEDS: POLYETHYLENE GLYCOL 3350 17 GM PACKET. PO SCH (08:40)
[2020-11-22] MEDS: GABAPENTIN 300 MG CAPSULE. PO SCH ×2 (08:41→21:17)
[2020-11-22] MEDS: LIDOCAINE (700MG/PATCH) PATCH. TD SCH (08:59)
[2020-11-22] MEDS: DICLOFENAC SODIUM 1% TOPICAL GEL 100GM TUBE. TP SCH ×2 (08:59→21:18)
[2020-11-22] MEDS: APIXABAN 5 MG TABLET. PO SCH ×2 (09:00→21:17)
[2020-11-22] MEDS: CLOPIDOGREL BISULFATE 75 MG TABLET PO SCH (10:08)
[2020-11-22 11:01] VITALS: BP 93/50
[2020-11-22] MEDS: ANTI-COAG MONITOR BY PHARMACY. MC PRN (11:01)
[2020-11-22] MEDS: IRON POLYSACCHARIDE COMPLEX 150 MG CAPSULE PO SCH (11:50)
--- NOTE | 2020-11-22 12:08 | PDOC ---
PROGRESS NOTES Date of Service DATE: 11/22/20 TIME: 12:06 Subjective Subjective Patient seen and evaluated Objective Objective Vital Signs Date Time Temp Pulse Resp B/P (MAP) Pulse Ox O2 Delivery O2 Flow Rate FiO2 11/22/20 11:01 97.1 99 18 93/50 (64) 97 Nasal Cannula 97.1 11/21/20 20:00 2.0 Intake and Output 11/22/20 07:00 Intake Total 510 ml Balance 510 ml Blood Product IV Normal Saline Flush 510 ml # Voids 3 # Bowel Movements 1 Physical Exam Physical Exam Visual examination secondary to Covid status. Assessment Assessment Problems Medical Problems: (1) AMS (altered mental status) Status: Acute Acute encephalopathy; CT head without acute findings. Mentation improved. PAFIB; presently in SR. continue present treatment. Dizziness, hypotension: due to low volume, better with IV hydration CAD s/p remote PCI/stent. On preadmission ASA/Plavix. Follows with [facility]' cardiology, Dr. Salter Hypertension; controlled Hyperlipidemia; statin Diabetes, II; as per IM Hypothyroidism; on replacement. Positive covid-19: New. Continue present treatment. Normocytic anemia: no obvious bleed but Hgb trending down. Hemoglobin hematocrit of 8.0 and 23.1. 1 dose of Eliquis held. Recheck CBC in the annem[facility] Comment Review of Relevant I have reviewed the following items nhung (where applicable) has been applied. Labs Laboratory Tests Test 11/20/20 15:25 11/20/20 20:33 11/21/20 03:30 11/21/20 08:03 White Blood Count 5.5 x10^3/uL (4.0-11.0) 6.3 x10^3/uL (4.0-11.0) Red Blood Count 2.25 x10^6/uL (3.50-5.40) 2.01 x10^6/uL (3.50-5.40) Hemoglobin 7.3 g/dL (12.0-15.5) 7.0 g/dL (12.0-15.5) Hematocrit 21.3 % (36.0-47.0) 19.7 % (36.0-47.0) Mean Corpuscular Volume 95 fL (79-100) 98 fL (79-100) Mean Corpuscular Hemoglobin 33 pg (25-35) 35 pg (25-35) Mean Corpuscular Hemoglobin Concent 34 g/dL (31-37) 35 g/dL (31-37) Red Cell Distribution Width 13.7 % (11.5-14.5) 14.4 % (11.5-14.5) Platelet Count 197 x10^3/uL (140-400) 209 x10^3/uL (140-400) Prothrombin Time 15.3 SEC (11.7-14.0) Prothromb Time International Ratio 1.2 (0.8-1.1) Glucose (Fingerstick) 155 mg/dL (70-99) 164 mg/dL (70-99) Sodium Level 139 mmol/L (136-145) Potassium Level 3.3 mmol/L (3.5-5.1) Chloride Level 106 mmol/L (98-107) Carbon Dioxide Level 25 mmol/L (21-32) Anion Gap 8 (6-14) Blood Urea Nitrogen 25 mg/dL (7-20) Creatinine 0.7 mg/dL (0.6-1.0) Estimated GFR (Cockcroft-Gault) 80.9 Glucose Level 147 mg/dL (70-99) Calcium Level 7.3 mg/dL (8.5-10.1) Test 11/21/20 09:15 11/21/20 11:49 11/21/20 15:10 11/21/20 16:57 White Blood Count 4.5 x10^3/uL (4.0-11.0) Red Blood Count 2.01 x10^6/uL (3.50-5.40) Hemoglobin 6.6 g/dL (12.0-15.5) 8.5 g/dL (12.0-15.5) Hematocrit 19.1 % (36.0-47.0) 24.9 % (36.0-47.0) Mean Corpuscular Volume 95 fL (79-100) Mean Corpuscular Hemoglobin 33 pg (25-35) Mean Corpuscular Hemoglobin Concent 35 g/dL (31-37) 34 g/dL (31-37) Red Cell Distribution Width 14.3 % (11.5-14.5) Platelet Count 190 x10^3/uL (140-400) Glucose (Fingerstick) 178 mg/dL (70-99) 188 mg/dL (70-99) Test 11/21/20 19:35 11/21/20 20:17 11/22/20 03:30 11/22/20 07:44 Stool Occult Blood Positive (NEG) Glucose (Fingerstick) 123 mg/dL (70-99) 66 mg/dL (70-99) White Blood Count 4.8 x10^3/uL (4.0-11.0) Red Blood Count 2.48 x10^6/uL (3.50-5.70) Hemoglobin 8.0 g/dL (12.0-15.5) Hematocrit 23.1 % (36.0-47.0) Mean Corpuscular Volume 96 fL (79-100) Mean Corpuscular Hemoglobin 33 pg (25-35) Mean Corpuscular Hemoglobin Concent 35 g/dL (31-37) Red Cell Distribution Width 14.2 % (11.5-14.5) Platelet Count 211 x10^3/uL (140-400) Absolute Reticulocyte Count 0.070 x10^6/uL (0.020-0.120) Percent Reticulocyte Count 2.8 % (0.5-2.3) Immature Reticulocyte Fraction 0.61 (0.20-0.60) Sodium Level 144 mmol/L (136-145) Potassium Level 3.9 mmol/L (3.5-5.1) Chloride Level 110 mmol/L (98-107) Carbon Dioxide Level 27 mmol/L (21-32) Anion Gap 7 (6-14) Blood Urea Nitrogen 16 mg/dL (7-20) Creatinine 0.7 mg/dL (0.6-1.0) Estimated GFR (Cockcroft-Gault) 80.9 Glucose Level 71 mg/dL (70-99) Calcium Level 7.2 mg/dL (8.5-10.1) Iron Level 19 ug/dL (50-170) Total Iron Binding Capacity 183 ug/dL (250-450) Iron Saturation 10 % (15-34) Test 11/22/20 08:33 11/22/20 11:29 Glucose (Fingerstick) 162 mg/dL (70-99) 199 mg/dL (70-99) Laboratory Tests Test 11/21/20 15:10 11/21/20 16:57 11/21/20 19:35 11/21/20 20:17 Hemoglobin 8.5 g/dL (12.0-15.5) Hematocrit 24.9 % (36.0-47.0) Mean Corpuscular Hemoglobin Concent 34 g/dL (31-37) Glucose (Fingerstick) 188 mg/dL (70-99) 123 mg/dL (70-99) Stool Occult Blood Positive (NEG) Test 11/22/20 03:30 11/22/20 07:44 11/22/20 08:33 11/22/20 11:29 White Blood Count 4.8 x10^3/uL (4.0-11.0) Red Blood Count 2.48 x10^6/uL (3.50-5.70) Hemoglobin 8.0 g/dL (12.0-15.5) Hematocrit 23.1 % (36.0-47.0) Mean Corpuscular Volume 96 fL (79-100) Mean Corpuscular Hemoglobin 33 pg (25-35) Mean Corpuscular Hemoglobin Concent 35 g/dL (31-37) Red Cell Distribution Width 14.2 % (11.5-14.5) Platelet Count 211 x10^3/uL (140-400) Absolute Reticulocyte Count 0.070 x10^6/uL (0.020-0.120) Percent Reticulocyte Count 2.8 % (0.5-2.3) Immature Reticulocyte Fraction 0.61 (0.20-0.60) Sodium Level 144 mmol/L (136-145) Potassium Level 3.9 mmol/L (3.5-5.1) Chloride Level 110 mmol/L (98-107) Carbon Dioxide Level 27 mmol/L (21-32) Anion Gap 7 (6-14) Blood Urea Nitrogen 16 mg/dL (7-20) Creatinine 0.7 mg/dL (0.6-1.0) Estimated GFR (Cockcroft-Gault) 80.9 Glucose Level 71 mg/dL (70-99) Calcium Level 7.2 mg/dL (8.5-10.1) Iron Level 19 ug/dL (50-170) Total Iron Binding Capacity 183 ug/dL (250-450) Iron Saturation 10 % (15-34) Glucose (Fingerstick) 66 mg/dL (70-99) 162 mg/dL (70-99) 199 mg/dL (70-99) Microbiology 11/18/20 Blood Culture - Preliminary, Resulted NO GROWTH AFTER 3 DAYS Medications Current Medications Sodium Chloride 1,000 ml @ 1,000 mls/hr 1X ONCE IV Last administered on 11/18/20at 15:50; Start 11/18/20 at 15:00; Stop 11/18/20 at 15:59; Status DC Acetaminophen (Tylenol) 500 mg 1X ONCE PO Last administered on 11/18/20at 17:24; Start 11/18/20 at 17:15; Stop 11/18/20 at 17:16; Status DC Magnesium Sulfate 50 ml @ 25 mls/hr 1X ONCE IV Last administered on 11/18/20at 18:08; Start 11/18/20 at 18:00; Stop 11/18/20 at 19:59; Status DC Psyllium Hydrophilic Mucilloid (Metamucil Fiber Packet) 1 pkt QHS PO Last administered on 11/21/20at 22:05; Start 11/18/20 at 21:00 Olanzapine (ZyPREXA ZYDIS) 5 mg PRN BID PRN PO ANXIETY / AGITATION Last administered on 11/20/20at 21:04; Start 11/18/20 at 17:45 Ondansetron HCl (Zofran) 4 mg PRN Q6HRS PRN IVP NAUSEA/VOMITING Last administered on 11/18/20at 21:09; Start 11/18/20 at 17:45 Calcium Carbonate/ Glycine (Tums) 500 mg PRN Q3HRS PRN PO UPSET STOMACH; Start 11/18/20 at 17:45 Acetaminophen (Tylenol) 650 mg PRN Q6HRS PRN PO Headaches, Temp > 101.5F Last administered on 11/20/20at 17:12; Start 11/18/20 at 17:45 Senna/Docusate Sodium (Senna Plus) 1 tab BID PO Last administered on 11/22/20at 08:37; Start 11/18/20 at 21:00 Magnesium Hydroxide (Milk Of Magnesia) 2,400 mg PRN Q12HR PRN PO CONSTIPATION; Start 11/18/20 at 17:45 Insulin Human Lispro (HumaLOG) 0-9 UNITS TIDWMEALS SQ Last administered on 11/22/20at 11:54; Start 11/19/20 at 08:00 Dextrose (Dextrose 50%-Water Syringe) 12.5 gm PRN Q15MIN PRN IV SEE COMMENTS; Start 11/18/20 at 17:45 Apixaban (Eliquis) 5 mg BID PO Last administered on 11/21/20at 22:05; Start 11/18/20 at 21:00; Stop 11/22/20 at 11:27; Status DC Atorvastatin Calcium (Lipitor) 20 mg DAILY PO Last administered on 11/22/20at 08:37; Start 11/19/20 at 09:00 Vitamin D (Vitamin D3) 2,000 unit BID PO Last administered on 11/22/20at 08:37; Start 11/18/20 at 21:00 Clopidogrel Bisulfate (Plavix) 75 mg DAILY PO Last administered on 11/22/20at 10:08; Start 11/19/20 at 09:00 Diltiazem HCl (Cardizem 24hr Cd) 120 mg DAILY PO Last administered on 11/19/20at 08:18; Start 11/19/20 at 09:00; Stop 11/19/20 at 10:47; Status DC Gabapentin (Neurontin) 300 mg BID PO Last administered on 11/22/20at 08:41; Star t 11/18/20 at 21:00 Insulin Glargine (Lantus Syringe) 26 unit QHS SQ ; Start 11/18/20 at 21:00; Stop 11/18/20 at 18:04; Status DC Levothyroxine Sodium (Synthroid) 50 mcg DAILY06 PO Last administered on 11/22/20at 06:14; Start 11/19/20 at 06:00 Metoprolol Succinate (Toprol Xl) 75 mg DAILY PO Last administered on 11/22/20 08:38; Start 11/19/20 at 09:00 Pantoprazole Sodium (Protonix) 40 mg DAILYAC PO Last administered on 11/21/20at 09:39; Start 11/19/20 at 07:30 Cetirizine HCl (ZyrTEC) 10 mg DAILY PO Last administered on 11/22/20at 08:38; Start 11/19/20 at 09:00 Sertraline HCl (Zoloft) 100 mg DAILY PO Last administered on 11/22/20at 08:37; Start 11/19/20 at 09:00 Linagliptin (Tradjenta) 5 mg DAILY PO Last administered on 11/21/20at 09:39; Start 11/19/20 at 09:00 Insulin Glargine (Lantus Syringe) 30 unit QHS SQ Last administered on 11/21/20at 23:44; Start 11/18/20 at 21:00 Lidocaine (Lidoderm) 1 patch DAILY TD Last administered on 11/22/20at 08:59; Start 11/18/20 at 18:00 Diclofenac Sodium (Voltaren) 1 poly BID TP Last administered on 11/22/20at 08:59; Start 11/18/20 at 21:00 Tramadol HCl (Ultram) 50 mg PRN Q6HRS PRN PO MILD TO MODERATE PAIN Last administered on 11/21/20at 05:27; Start 11/18/20 at 18:00 Prochlorperazine Edisylate (Compazine) 10 mg 1X ONCE IV ; Start 11/18/20 at 18:00; Stop 11/18/20 at 18:09; Status DC Ondansetron HCl (Zofran) 4 mg PRN Q8HRS PRN IV NAUSEA/VOMITING; Start 11/18/20 at 19:15; Stop 11/19/20 at 19:14; Status UNV Acetaminophen (Tylenol) 650 mg PRN Q4HRS PRN PO FEVER > 100.3'F; Start 11/18/20 at 19:15; Stop 11/19/20 at 19:14; Status UNV Sodium Chloride 1,000 ml @ 100 mls/hr Q10H IV Last administered on 11/21/20at 22:04; Start 11/19/20 at 08:30 Sodium Chloride 500 ml @ 500 mls/hr 1X ONCE IV Last administered on 11/19/20at 10:45; Start 11/19/20 at 10:45; Stop 11/19/20 at 11:44; Status DC Diltiazem HCl (Cardizem) 30 mg Q6HRS PO Last administered on 11/22/20at 06:21; Start 11/19/20 at 18:00 Polyethylene Glycol (miraLAX PACKET) 17 gm DAILY PO Last administered on 11/22/20at 08:40; Start 11/21/20 at 09:00 Pantoprazole Sodium (Protonix) 40 mg DAILYAC PO ; Start 11/22/20 at 07:30; Status Cancel Pantoprazole Sodium (Protonix) 40 mg 1X ONCE PO ; Start 11/21/20 at 12:15; Stop 11/21/20 at 12:13; Status DC Vitamin B Complex (Folbic Tablet) 1 tab DAILY PO Last administered on 11/22/20at 08:37; Start 11/21/20 at 12:15 Cyanocobalamin (Vitamin B-12) 1,000 mcg 1X ONCE IM Last administered on 11/21/20at 13:26; Start 11/21/20 at 12:15; Stop 11/21/20 at 12:16; Status DC Info (Anti-Coagulation Monitoring By Pharmacy) 1 each PRN DAILY PRN MC SEE COMMENTS Last administered on 11/22/20at 11:01; Start 11/21/20 at 13:00 Potassium Bicarbonate (Potassium Effervescent Tablet) 40 meq 1X ONCE PEG Last administered on 11/21/20at 18:13; Start 11/21/20 at 18:00; Stop 11/21/20 at 18:02; Status DC Polysaccharide Iron Complex (Niferex 150) 150 mg DAILY PO Last administered on 11/22/20at 11:50; Start 11/22/20 at 12:00 Active Scripts Active Lantus (Insulin Glargine,Hum.rec.anlog) 100 Unit/1 Ml Vial 26 Unit SQ QHS 30 Days Hydrocodone-Apap 5-325 (Hydrocodone Bit/Acetaminophen) 1 Tab Tablet 1 Tab PO PRN Q6HRS PRN 14 Days Diltiazem 24HR Cd (Diltiazem Hcl) 120 Mg Cap.er.24h 120 Mg PO DAILY 30 Days Metoprolol Succinate ( Xl ) (Metoprolol Succinate) 25 Mg Tab.er.24h 75 Mg PO DAILY 30 Days Eliquis (Apixaban) 5 Mg Tablet 5 Mg PO BID 30 Days Alprazolam 0.25 Mg Tablet 0.25 Mg PO PRN Q6HRS PRN Reported Furosemide 40 Mg Tablet 1 Tab PO PRN DAILY Klor-Con 10 (Potassium Chloride) 10 Meq Tablet.er 1 Tab PO PRN DAILY PRN 30 Days Vitamin D3 (Cholecalciferol (Vitamin D3)) 1,000 Unit Tablet 2 Tab PO BID Turmeric (Turmeric Root Extract) 500 Mg Capsule 500 Mg PO DAILY Multi-Day Vitamins (Multivitamin) 1 Each Tablet 1 Tab PO DAILY Januvia (Sitagliptin Phosphate) 50 Mg Tablet 1 Tab PO DAILY Zoloft (Sertraline Hcl) 100 Mg Tablet 1 Tab PO DAILY Pantoprazole Sodium (Pantoprazole Sodium) 40 Mg Tablet.dr 1 Tab PO DAILY Oxybutynin Chloride Er (Oxybutynin Chloride) 10 Mg Tab.er.24 1 Tab PO DAILY Toprol Xl (Metoprolol Succinate) 50 Mg Tab.er.24h 1 Tab PO DAILY Levothyroxine Sodium 75 Mcg Tablet 1 Tab PO DAILY Gabapentin (Gabapentin) 300 Mg Capsule 300 Mg PO BID 300mg in am, 600mg at bedtime Fish Oil (Mabie-3 Fatty Acids) 500 Mg Capsule.dr 500 Mg PO FENTANYL 25mcg/hr (Fentanyl) 1 Each Patch.td72 1 Patch TD Q72H Clopidogrel (Clopidogrel Bisulfate) 75 Mg Tablet 1 Tab PO DAILY Claritin (Loratadine) 10 Mg Tablet 1 Tab PO DAILY Atorvastatin Calcium 20 Mg Tablet 1 Tab PO DAILY Metformin Hcl Er (Metformin Hcl) 500 Mg Tab.er.24 1,000 Mg PO BID Vitals/I & O Vital Sign - Last 24 Hours 11/21/20 11/21/20 11/21/20 11/21/20 12:28 12:43 12:58 13:13 Pulse 86 82 82 78 Resp 28 19 19 16 B/P (MAP) 120/57 101/48 101/48 103/51 11/21/20 11/21/20 11/21/20 11/21/20 13:27 13:43 15:00 18:15 Temp 98.6 98.6 Pulse 73 76 74 74 Resp 18 18 B/P (MAP) 104/54 100/55 93/46 (62) 122/58 Pulse Ox 83 O2 Delivery Nasal Cannula O2 Flow Rate 2.0 11/21/20 11/21/20 11/21/20 11/22/20 19:00 20:00 23:00 00:13 Temp 97.6 98.3 97.6 98.3 Pulse 80 72 73 Resp 20 20 B/P (MAP) 119/62 (81) 109/53 (71) 126/58 Pulse Ox 96 97 O2 Delivery Nasal Cannula Nasal Cannula Nasal Cannula O2 Flow Rate 2.0 11/22/20 11/22/20 11/22/20 11/22/20 03:29 06:21 07:15 08:38 Temp 97.1 97.4 97.1 97.4 Pulse 67 69 70 70 Resp 20 18 B/P (MAP) 117/65 (82) 125/56 124/88 (100) 124/88 Pulse Ox 96 95 O2 Delivery Nasal Cannula Nasal Cannula 11/22/20 11:01 Temp 97.1 97.1 Pulse 99 Resp 18 B/P (MAP) 93/50 (64) Pulse Ox 97 O2 Delivery Nasal Cannula Intake and Output 11/21/20 11/21/20 11/22/20 15:00 23:00 07:00 Intake Total 510 ml Balance 510 ml Justifications for Admission General Conditions Altered mental status?: Yes Justification of admission: Patient has tachycardia (> 100 beats per minute) or hypotension (SBP < 90 mm Hg) leading to inadequate systemic perfusion as indicated by severe/persistent altered mental status. Other Justification CHEPE ALVARADO MD Nov 22, 2020 12:08
--- NOTE | 2020-11-22 13:05 | PDOC ---
[facility] PROGRESS NOTE Date of Service DOS: DATE: 11/22/20 TIME: 13:04 Chief Complaint Chief Complaint A/P: Acute metabolic encephalopathy - patient tested COVID-19 positive Toxic encephalopathy also suspected - noted by home health and children, not at baseline. No focal neurologic deficits to indicate CVA, possibly due to electrolyte derangement. Likely also polypharmacy considering she has 2 fentanyl patches. Her TSH is low, will reduce her levothyroxine as well Paroxysmal AFIB - currently sinus. on oral Cardizem, metoprolol. Rate remains uncontrolled. On prophylactic dose of Lovenox. CAD s/p remote PCI/stent. On ASA/Plavix. Follows with [facility] cardiology, Dr. Salter Hypertension - will monitor Hyperlipidemia; statin Diabetes - type II, not well controlled. Sees Dr. Nash through [facility]. Will continue her 30u lantus regimen and sliding scale lispro otherwise Hypothyroidism; on replacement. TSH low, will reduce given her confusion and h/o afib H/o tobaccoism; in remission Hypomagnesemia - will replace Moderate protein calorie malnutrition - given her recent SNF stay her self care is in question. She notes she only eats microwave meals and sometimes a salad her home health aide will make FEN - ADA diet PPX - eliquis FULL CODE Dispo - inpatient for confusion, may need SNF or longer term placement History of Present Illness History of Present Illness 11/22, weak still, but much better, some micro blood in stool, but anemia looks like chronic disease, start nutrition replacement, pt is still in sepsis respsonse, needs improvements in thing of plan started 2 days ago 11/21, PT andOT, cont current, OOB to chiar anemia today, w/u with PPI and vitamins, check retic. 1 u PRBC today pt pleasant, plan discussed Ms Flannery is a 79 yo F w/ PMHx HTN, paroxsymal afib who presents to ED via EMS after home health aide noted she was very confused, not acting like herself. Children noted the same. Patient notes she feels dizzy and shaky. She does complain of left shoulder pain that is 9 out of 10 nonradiating. She thinks this is due to a torn rotator cuff. She notes she just saw her grinder chipper yesterday, Dr. Nash, has a continuous glucometer on her left arm. Was increased in her dosing of lantus to 30u QAM instead of QHS, she did not change yet EKG sinus rhythm rate in the 80s, not in A. 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 No ST segment or T wave changes. Urinalysis positive ketones and glucosuria no leukocyte esterase or nitrates. Urine drug screen negative, though she is wearing two fentanyl patches, 25mcg on her left deltoid and right scapula. When asked how she got the patches on she tells me she doesn't do that, she only puts on her glucose monitor, which is on her left deltoid. She is confused about the fentanyl patches. Labs with WBC 5.5, Hb 12.1, platelets 181, NA 136, K3.8, BUN 23, CR 0.7, glucose 237, albumin 3.2, magnesium 1.6, TSH 0.[address] head with no acute intracranial findings. Chest radiograph with no acute changes Admitted for further care 11/19: Patient seen and evaluated. No acute events overnight, afebrile. Rate controlled A. fib. Given 2 fentanyl patches found on her body, initially toxic encephalopathy was concern. BUN increased from 23 to 51, etiology of confusion could certainly be uremic encephalopathy. Given precipitous jump in BUN on Eliquis will check FOBT, and provide IV fluids. Calcium 7.6 today, will schedule calcium carbonate 3 times daily with meals. She feels her confusion has resolved. She states that her daughter would like for her to be placed in assisted living facility, as patient lives alone. She is not wanting to be placed in assisted living facility. PT/OT evaluation pending for SNF versus long-term placement. 11/20: Patient seen and evaluated. Tested COVID-19 positive. Afebrile. Repeat troponin undetectable. Uremia improving with fluids, FOBT pending. Cardizem converted to short acting; appreciate cardiology input on management of this patient. PT/OT to evaluate for SNF. Will transfer to [facility]- floor. Vitals/I&O Vitals/I&O: Vital Signs Date Time Temp Pulse Resp B/P (MAP) Pulse Ox O2 Delivery O2 Flow Rate FiO2 11/22/20 11:01 97.1 99 18 93/50 (64) 97 Nasal Cannula 97.1 11/22/20 08:00 2.0 I & O 11/21/20 11/21/20 11/22/20 15:00 23:00 07:00 Intake Total 510 ml Balance 510 ml Physical Exam General: Alert, Oriented X3, Cooperative, No acute distress Heart: Normal S1, Normal S2 Lungs: Clear, Other (good volume ) Abdomen: Soft, No tenderness Extremities: No clubbing, No cyanosis Skin: No rashes, No breakdown Labs Labs: Laboratory Tests Test 11/21/20 15:10 11/21/20 16:57 11/21/20 19:35 11/21/20 20:17 Hemoglobin 8.5 g/dL (12.0-15.5) Hematocrit 24.9 % (36.0-47.0) Mean Corpuscular Hemoglobin Concent 34 g/dL (31-37) Glucose (Fingerstick) 188 mg/dL (70-99) 123 mg/dL (70-99) Stool Occult Blood Positive (NEG) Test 11/22/20 03:30 11/22/20 07:44 11/22/20 08:33 11/22/20 11:29 White Blood Count 4.8 x10^3/uL (4.0-11.0) Red Blood Count 2.48 x10^6/uL (3.50-5.70) Hemoglobin 8.0 g/dL (12.0-15.5) Hematocrit 23.1 % (36.0-47.0) Mean Corpuscular Volume 96 fL (79-100) Mean Corpuscular Hemoglobin 33 pg (25-35) Mean Corpuscular Hemoglobin Concent 35 g/dL (31-37) Red Cell Distribution Width 14.2 % (11.5-14.5) Platelet Count 211 x10^3/uL (140-400) Absolute Reticulocyte Count 0.070 x10^6/uL (0.020-0.120) Percent Reticulocyte Count 2.8 % (0.5-2.3) Immature Reticulocyte Fraction 0.61 (0.20-0.60) Sodium Level 144 mmol/L (136-145) Potassium Level 3.9 mmol/L (3.5-5.1) Chloride Level 110 mmol/L (98-107) Carbon Dioxide Level 27 mmol/L (21-32) Anion Gap 7 (6-14) Blood Urea Nitrogen 16 mg/dL (7-20) Creatinine 0.7 mg/dL (0.6-1.0) Estimated GFR (Cockcroft-Gault) 80.9 Glucose Level 71 mg/dL (70-99) Calcium Level 7.2 mg/dL (8.5-10.1) Iron Level 19 ug/dL (50-170) Total Iron Binding Capacity 183 ug/dL (250-450) Iron Saturation 10 % (15-34) Glucose (Fingerstick) 66 mg/dL (70-99) 162 mg/dL (70-99) 199 mg/dL (70-99) Assessment and Plan Assessmemt and Plan Problems Medical Problems: (1) AMS (altered mental status) Status: Acute Comment Review of Relevant I have reviewed the following items nhung (where applicable) has been applied. Medications: Current Medications Medications (Trade) Dose Ordered Sig/Myra Route PRN Reason Start Time Stop Time Status Last Admin Dose Admin Potassium Bicarbonate (Potassium Effervescent Tablet) 40 meq 1X ONCE PEG 11/21/20 18:00 11/21/20 18:02 DC 11/21/20 18:13 Polysaccharide Iron Complex (Niferex 150) 150 mg DAILY PO 11/22/20 12:00 11/22/20 11:50 Justifications for Admission General Conditions Altered mental status?: Yes Justification of admission: Patient has tachycardia (> 100 beats per minute) or hypotension (SBP < 90 mm Hg) leading to inadequate systemic perfusion as indicated by severe/persistent altered mental status. Other Justification ALEYDA CEBALLOS MD Nov 22, 2020 13:05
[2020-11-22] MEDS: traMADol 50 MG TABLET PO PRN (13:26)
[2020-11-22 15:00] VITALS: BP 126/60
[2020-11-22] MEDS: ACETAMINOPHEN 325 MG TABLET. PO PRN (18:35)
[2020-11-22 19:00] VITALS: BP 114/56
[2020-11-22] MEDS: PSYLLIUM HUSK (SUGAR FREE) 1 PKT PACKET PO SCH (21:17)
[2020-11-22] MEDS: INSULIN GLARGINE SYRINGE. SQ SCH (21:18)
[2020-11-22 23:00] VITALS: BP 126/59
[2020-11-23] MEDS: dilTIAZem HCL 30 MG TABLET PO SCH ×5 (00:07→23:22)
[2020-11-23] MEDS: ACETAMINOPHEN 325 MG TABLET. PO PRN ×2 (01:03→17:11)
[2020-11-23 03:00] VITALS: BP 106/52
[2020-11-23] MEDS: IV NORMAL SALINE 1000ML BAG 1,000 ML IV SCH ×4 (04:48→23:21)
[2020-11-23] MEDS: LEVOTHYROXINE 50 MCG TABLET PO SCH (06:18)
[2020-11-23] MEDS: PANTOPRAZOLE 40 MG TABLET.DR. PO SCH (06:18)
[2020-11-23 07:00] VITALS: BP 121/58
[2020-11-23] MEDS: INSULIN LISPRO 300 UNITS/3 ML VIAL. SQ SCH ×3 (08:00→16:38)
[2020-11-23] MEDS: APIXABAN 5 MG TABLET. PO SCH ×2 (09:00→20:35)
[2020-11-23] MEDS: GABAPENTIN 300 MG CAPSULE. PO SCH ×2 (09:14→20:34)
[2020-11-23] MEDS: CHOLECALCIFEROL (VITAMIN D3) 1,000 UNIT TABLET PO SCH ×2 (09:14→20:34)
[2020-11-23] MEDS: POLYETHYLENE GLYCOL 3350 17 GM PACKET. PO SCH (09:14)
[2020-11-23] MEDS: CLOPIDOGREL BISULFATE 75 MG TABLET PO SCH (09:14)
[2020-11-23] MEDS: SERTRALINE 50 MG TABLET. PO SCH (09:14)
[2020-11-23] MEDS: VITAMIN B12,B9,B6 COMPLEX 1 TABLET. PO SCH (09:14)
[2020-11-23] MEDS: CETIRIZINE HCL 10 MG TABLET. PO SCH (09:15)
[2020-11-23] MEDS: traMADol 50 MG TABLET PO PRN ×2 (09:15→23:18)
[2020-11-23] MEDS: ATORVASTATIN CALCIUM 20 MG TABLET PO SCH (09:15)
[2020-11-23] MEDS: IRON POLYSACCHARIDE COMPLEX 150 MG CAPSULE PO SCH (09:15)
[2020-11-23] MEDS: SENNOSIDES/DOCUSATE 8.6/50MG TABLET. PO SCH ×2 (09:15→20:34)
[2020-11-23] MEDS: LINAGLIPTIN 5 MG TABLET PO SCH (09:16)
[2020-11-23] MEDS: LIDOCAINE (700MG/PATCH) PATCH. TD SCH (09:16)
[2020-11-23] MEDS: METOPROLOL SUCC 24HR ER 25 MG TAB.ER.24H. PO SCH (09:16)
[2020-11-23] MEDS: DICLOFENAC SODIUM 1% TOPICAL GEL 100GM TUBE. TP SCH ×2 (09:17→20:34)
[2020-11-23 10:35] LABS: BASO % 0 % (0-3); EOS # 0.1 x10^3/uL (0.0-0.7); EOS % 1 % (0-3); HEMATOCRIT 25.1 % (36.0-47.0); HEMOGLOBIN 8.6 g/dL (12.0-15.5); LYMPH # 0.7 x10^3/uL (1.0-4.8); LYMPH % 12 % (24-48); MEAN CORPUSCULAR HEMOGLOBIN 33 pg (25-35); MEAN CORPUSCULAR HGB CONC 34 g/dL (31-37); MEAN CORPUSCULAR VOLUME 97 fL (79-100); MONO # 0.4 x10^3/uL (0.0-1.1); MONO % 7 % (0-9); NEUT # 4.9 x10^3/uL (1.8-7.7); NEUT % 80 % (31-73); PLATELET COUNT 264 x10^3/uL (140-400); RED BLOOD COUNT 2.59 x10^6/uL (3.50-5.40); RED CELL DISTRIBUTION WIDTH 14.7 % (11.5-14.5); WHITE BLOOD COUNT 6.1 x10^3/uL (4.0-11.0)
[2020-11-23 10:50] LABS: CALCIUM 7.4 mg/dL (8.5-10.1); CREATININE 0.6 mg/dL (0.6-1.0); GFR 96.7; POTASSIUM 3.7 mmol/L (3.5-5.1)
[2020-11-23 11:00] VITALS: BP 157/79
--- NOTE | 2020-11-23 11:52 | PDOC ---
PROGRESS NOTES Date of Service DATE: 11/23/20 TIME: 11:50 Subjective Subjective Patient seen and evaluated Objective Objective Vital Signs Date Time Temp Pulse Resp B/P (MAP) Pulse Ox O2 Delivery O2 Flow Rate FiO2 11/23/20 11:00 95.5 68 18 157/79 (105) 98 Nasal Cannula 2.0 95.5 Intake and Output 11/23/20 07:00 Intake Total 290 ml Balance 290 ml Intake Oral 290 ml # Voids 2 Physical Exam Physical Exam Visual examination secondary to Covid status. Assessment Assessment Problems Medical Problems: (1) AMS (altered mental status) Status: Acute Acute encephalopathy; CT head without acute findings. Mentation continues to improve. PAFIB; presently in SR. continue present treatment. Dizziness, hypotension: due to low volume, better with IV hydration CAD s/p remote PCI/stent. On preadmission ASA/Plavix. Follows with [facility] ardiology, Dr. Salter Hypertension; controlled Hyperlipidemia; statin Diabetes, II; as per IM Hypothyroidism; on replacement. Positive covid-19: New. Continue present treatment. Normocytic anemia: no obvious bleed but Hgb had been trending down. Morning lab improved with a hemoglobin of 8.6 and hematocrit 25.1. Continuing Eliquis. Monitoring CBC. Comment Review of Relevant I have reviewed the following items nhung (where applicable) has been applied. Labs Laboratory Tests Test 11/21/20 15:10 11/21/20 16:57 11/21/20 19:35 11/21/20 20:17 Hemoglobin 8.5 g/dL (12.0-15.5) Hematocrit 24.9 % (36.0-47.0) Mean Corpuscular Hemoglobin Concent 34 g/dL (31-37) Glucose (Fingerstick) 188 mg/dL (70-99) 123 mg/dL (70-99) Stool Occult Blood Positive (NEG) Test 11/22/20 03:30 11/22/20 07:44 11/22/20 08:33 11/22/20 11:29 White Blood Count 4.8 x10^3/uL (4.0-11.0) Red Blood Count 2.48 x10^6/uL (3.50-5.70) Hemoglobin 8.0 g/dL (12.0-15.5) Hematocrit 23.1 % (36.0-47.0) Mean Corpuscular Volume 96 fL (79-100) Mean Corpuscular Hemoglobin 33 pg (25-35) Mean Corpuscular Hemoglobin Concent 35 g/dL (31-37) Red Cell Distribution Width 14.2 % (11.5-14.5) Platelet Count 211 x10^3/uL (140-400) Absolute Reticulocyte Count 0.070 x10^6/uL (0.020-0.120) Percent Reticulocyte Count 2.8 % (0.5-2.3) Immature Reticulocyte Fraction 0.61 (0.20-0.60) Sodium Level 144 mmol/L (136-145) Potassium Level 3.9 mmol/L (3.5-5.1) Chloride Level 110 mmol/L (98-107) Carbon Dioxide Level 27 mmol/L (21-32) Anion Gap 7 (6-14) Blood Urea Nitrogen 16 mg/dL (7-20) Creatinine 0.7 mg/dL (0.6-1.0) Estimated GFR (Cockcroft-Gault) 80.9 Glucose Level 71 mg/dL (70-99) Calcium Level 7.2 mg/dL (8.5-10.1) Iron Level 19 ug/dL (50-170) Total Iron Binding Capacity 183 ug/dL (250-450) Iron Saturation 10 % (15-34) Glucose (Fingerstick) 66 mg/dL (70-99) 162 mg/dL (70-99) 199 mg/dL (70-99) Test 11/22/20 16:10 11/22/20 20:17 11/23/20 07:09 11/23/20 10:05 Glucose (Fingerstick) 150 mg/dL (70-99) 206 mg/dL (70-99) 102 mg/dL (70-99) White Blood Count 6.1 x10^3/uL (4.0-11.0) Red Blood Count 2.59 x10^6/uL (3.50-5.40) Hemoglobin 8.6 g/dL (12.0-15.5) Hematocrit 25.1 % (36.0-47.0) Mean Corpuscular Volume 97 fL (79-100) Mean Corpuscular Hemoglobin 33 pg (25-35) Mean Corpuscular Hemoglobin Concent 34 g/dL (31-37) Red Cell Distribution Width 14.7 % (11.5-14.5) Platelet Count 264 x10^3/uL (140-400) Neutrophils (%) (Auto) 80 % (31-73) Lymphocytes (%) (Auto) 12 % (24-48) Monocytes (%) (Auto) 7 % (0-9) Eosinophils (%) (Auto) 1 % (0-3) Basophils (%) (Auto) 0 % (0-3) Neutrophils # (Auto) 4.9 x10^3/uL (1.8-7.7) Lymphocytes # (Auto) 0.7 x10^3/uL (1.0-4.8) Monocytes # (Auto) 0.4 x10^3/uL (0.0-1.1) Eosinophils # (Auto) 0.1 x10^3/uL (0.0-0.7) Basophils # (Auto) 0.0 x10^3/uL (0.0-0.2) Sodium Level 142 mmol/L (136-145) Potassium Level 3.7 mmol/L (3.5-5.1) Chloride Level 110 mmol/L (98-107) Carbon Dioxide Level 29 mmol/L (21-32) Anion Gap 3 (6-14) Blood Urea Nitrogen 10 mg/dL (7-20) Creatinine 0.6 mg/dL (0.6-1.0) Estimated GFR (Cockcroft-Gault) 96.7 Glucose Level 163 mg/dL (70-99) Calcium Level 7.4 mg/dL (8.5-10.1) Test 11/23/20 11:20 Glucose (Fingerstick) 176 mg/dL (70-99) Laboratory Tests Test 11/22/20 16:10 11/22/20 20:17 11/23/20 07:09 11/23/20 10:05 Glucose (Fingerstick) 150 mg/dL (70-99) 206 mg/dL (70-99) 102 mg/dL (70-99) White Blood Count 6.1 x10^3/uL (4.0-11.0) Red Blood Count 2.59 x10^6/uL (3.50-5.40) Hemoglobin 8.6 g/dL (12.0-15.5) Hematocrit 25.1 % (36.0-47.0) Mean Corpuscular Volume 97 fL (79-100) Mean Corpuscular Hemoglobin 33 pg (25-35) Mean Corpuscular Hemoglobin Concent 34 g/dL (31-37) Red Cell Distribution Width 14.7 % (11.5-14.5) Platelet Count 264 x10^3/uL (140-400) Neutrophils (%) (Auto) 80 % (31-73) Lymphocytes (%) (Auto) 12 % (24-48) Monocytes (%) (Auto) 7 % (0-9) Eosinophils (%) (Auto) 1 % (0-3) Basophils (%) (Auto) 0 % (0-3) Neutrophils # (Auto) 4.9 x10^3/uL (1.8-7.7) Lymphocytes # (Auto) 0.7 x10^3/uL (1.0-4.8) Monocytes # (Auto) 0.4 x10^3/uL (0.0-1.1) Eosinophils # (Auto) 0.1 x10^3/uL (0.0-0.7) Basophils # (Auto) 0.0 x10^3/uL (0.0-0.2) Sodium Level 142 mmol/L (136-145) Potassium Level 3.7 mmol/L (3.5-5.1) Chloride Level 110 mmol/L (98-107) Carbon Dioxide Level 29 mmol/L (21-32) Anion Gap 3 (6-14) Blood Urea Nitrogen 10 mg/dL (7-20) Creatinine 0.6 mg/dL (0.6-1.0) Estimated GFR (Cockcroft-Gault) 96.7 Glucose Level 163 mg/dL (70-99) Calcium Level 7.4 mg/dL (8.5-10.1) Test 11/23/20 11:20 Glucose (Fingerstick) 176 mg/dL (70-99) Microbiology 11/18/20 Blood Culture - Preliminary, Resulted NO GROWTH AFTER 4 DAYS Medications Current Medications Sodium Chloride 1,000 ml @ 1,000 mls/hr 1X ONCE IV Last administered on 11/18/20at 15:50; Start 11/18/20 at 15:00; Stop 11/18/20 at 15:59; Status DC Acetaminophen (Tylenol) 500 mg 1X ONCE PO Last administered on 11/18/20 17:24; Start 11/18/20 at 17:15; Stop 11/18/20 at 17:16; Status DC Magnesium Sulfate 50 ml @ 25 mls/hr 1X ONCE IV Last administered on 11/18/20at 18:08; Start 11/18/20 at 18:00; Stop 11/18/20 at 19:59; Status DC Psyllium Hydrophilic Mucilloid (Metamucil Fiber Packet) 1 pkt QHS PO Last administered on 11/22/20 21:17; Start 11/18/20 at 21:00 Olanzapine (ZyPREXA ZYDIS) 5 mg PRN BID PRN PO ANXIETY / AGITATION Last administered on 11/20/20at 21:04; Start 11/18/20 at 17:45 Ondansetron HCl (Zofran) 4 mg PRN Q6HRS PRN IVP NAUSEA/VOMITING Last administered on 11/18/20at 21:09; Start 11/18/20 at 17:45 Calcium Carbonate/ Glycine (Tums) 500 mg PRN Q3HRS PRN PO UPSET STOMACH; Start 11/18/20 at 17:45 Acetaminophen (Tylenol) 650 mg PRN Q6HRS PRN PO Headaches, Temp > 101.5F Last administered on 11/23/20at 01:03; Start 11/18/20 at 17:45 Senna/Docusate Sodium (Senna Plus) 1 tab BID PO Last administered on 11/23/20at 09:15; Start 11/18/20 at 21:00 Magnesium Hydroxide (Milk Of Magnesia) 2,400 mg PRN Q12HR PRN PO CONSTIPATION; Start 11/18/20 at 17:45 Insulin Human Lispro (HumaLOG) 0-9 UNITS TIDWMEALS SQ Last administered on 11/22/20at 11:54; Start 11/19/20 at 08:00 Dextrose (Dextrose 50%-Water Syringe) 12.5 gm PRN Q15MIN PRN IV SEE COMMENTS; Start 11/18/20 at 17:45 Apixaban (Eliquis) 5 mg BID PO Last administered on 11/21/20at 22:05; Start 11/18/20 at 21:00; Stop 11/22/20 at 11:27; Status DC Atorvastatin Calcium (Lipitor) 20 mg DAILY PO Last administered on 11/23/20 09:15; Start 11/19/20 at 09:00 Vitamin D (Vitamin D3) 2,000 unit BID PO Last administered on 11/23/20 09:14; Start 11/18/20 at 21:00 Clopidogrel Bisulfate (Plavix) 75 mg DAILY PO Last administered on 11/23/20 09: 14; Start 11/19/20 at 09:00 Diltiazem HCl (Cardizem 24hr Cd) 120 mg DAILY PO Last administered on 11/19/20 08:18; Start 11/19/20 at 09:00; Stop 11/19/20 at 10:47; Status DC Gabapentin (Neurontin) 300 mg BID PO Last administered on 11/23/20 09:14; Start 11/18/20 at 21:00 Insulin Glargine (Lantus Syringe) 26 unit QHS SQ ; Start 11/18/20 at 21:00; Stop 11/18/20 at 18:04; Status DC Levothyroxine Sodium (Synthroid) 50 mcg DAILY06 PO Last administered on 11/23/20 06:18; Start 11/19/20 at 06:00 Metoprolol Succinate (Toprol Xl) 75 mg DAILY PO Last administered on 11/23/20 09:16; Start 11/19/20 at 09:00 Pantoprazole Sodium (Protonix) 40 mg DAILYAC PO Last administered on 11/23/20 06:18; Start 11/19/20 at 07:30 Cetirizine HCl (ZyrTEC) 10 mg DAILY PO Last administered on 11/23/20 09:15; Start 11/19/20 at 09:00 Sertraline HCl (Zoloft) 100 mg DAILY PO Last administered on 11/23/20 09:14; Start 11/19/20 at 09:00 Linagliptin (Tradjenta) 5 mg DAILY PO Last administered on 11/23/20 09:16; Start 11/19/20 at 09:00 Insulin Glargine (Lantus Syringe) 30 unit QHS SQ Last administered on 11/22/20 21:18; Start 11/18/20 at 21:00 Lidocaine (Lidoderm) 1 patch DAILY TD Last administered on 11/23/20at 09:16; Start 11/18/20 at 18:00 Diclofenac Sodium (Voltaren) 1 poly BID TP Last administered on 11/23/20at 09:17; Start 11/18/20 at 21:00 Tramadol HCl (Ultram) 50 mg PRN Q6HRS PRN PO MILD TO MODERATE PAIN Last administered on 11/23/20at 09:15; Start 11/18/20 at 18:00 Prochlorperazine Edisylate (Compazine) 10 mg 1X ONCE IV ; Start 11/18/20 at 18:00; Stop 11/18/20 at 18:09; Status DC Ondansetron HCl (Zofran) 4 mg PRN Q8HRS PRN IV NAUSEA/VOMITING; Start 11/18/20 at 19:15; Stop 11/19/20 at 19:14; Status UNV Acetaminophen (Tylenol) 650 mg PRN Q4HRS PRN PO FEVER > 100.3'F; Start 11/18/20 at 19:15; Stop 11/19/20 at 19:14; Status UNV Sodium Chloride 1,000 ml @ 100 mls/hr Q10H IV Last administered on 11/23/20at 04:48; Start 11/19/20 at 08:30 Sodium Chloride 500 ml @ 500 mls/hr 1X ONCE IV Last administered on 11/19/20at 10:45; Start 11/19/20 at 10:45; Stop 11/19/20 at 11:44; Status DC Diltiazem HCl (Cardizem) 30 mg Q6HRS PO Last administered on 11/23/20at 06:25; Start 11/19/20 at 18:00 Polyethylene Glycol (miraLAX PACKET) 17 gm DAILY PO Last administered on 11/23/20at 09:14; Start 11/21/20 at 09:00 Pantoprazole Sodium (Protonix) 40 mg DAILYAC PO ; Start 11/22/20 at 07:30; Status Cancel Pantoprazole Sodium (Protonix) 40 mg 1X ONCE PO ; Start 11/21/20 at 12:15; Stop 11/21/20 at 12:13; Status DC Vitamin B Complex (Folbic Tablet) 1 tab DAILY PO Last administered on 11/23/20 09:14; Start 11/21/20 at 12:15 Cyanocobalamin (Vitamin B-12) 1,000 mcg 1X ONCE IM Last administered on 11/21/20at 13:26; Start 11/21/20 at 12:15; Stop 11/21/20 at 12:16; Status DC Info (Anti-Coagulation Monitoring By Pharmacy) 1 each PRN DAILY PRN MC SEE CO MMENTS Last administered on 11/22/20at 11:01; Start 11/21/20 at 13:00 Potassium Bicarbonate (Potassium Effervescent Tablet) 40 meq 1X ONCE PEG Last administered on 11/21/20at 18:13; Start 11/21/20 at 18:00; Stop 11/21/20 at 18:02; Status DC Polysaccharide Iron Complex (Niferex 150) 150 mg DAILY PO Last administered on 11/23/20 09:15; Start 11/22/20 at 12:00 Apixaban (Eliquis) 5 mg BID PO Last administered on 11/22/20at 21:17; Start 11/22/20 at 21:00 Active Scripts Active Lantus (Insulin Glargine,Hum.rec.anlog) 100 Unit/1 Ml Vial 26 Unit SQ QHS 30 Days Hydrocodone-Apap 5-325 (Hydrocodone Bit/Acetaminophen) 1 Tab Tablet 1 Tab PO PRN Q6HRS PRN 14 Days Diltiazem 24HR Cd (Diltiazem Hcl) 120 Mg Cap.er.24h 120 Mg PO DAILY 30 Days Metoprolol Succinate ( Xl ) (Metoprolol Succinate) 25 Mg Tab.er.24h 75 Mg PO DAILY 30 Days Eliquis (Apixaban) 5 Mg Tablet 5 Mg PO BID 30 Days Alprazolam 0.25 Mg Tablet 0.25 Mg PO PRN Q6HRS PRN Reported Furosemide 40 Mg Tablet 1 Tab PO PRN DAILY Klor-Con 10 (Potassium Chloride) 10 Meq Tablet.er 1 Tab PO PRN DAILY PRN 30 Days Vitamin D3 (Cholecalciferol (Vitamin D3)) 1,000 Unit Tablet 2 Tab PO BID Turmeric (Turmeric Root Extract) 500 Mg Capsule 500 Mg PO DAILY Multi-Day Vitamins (Multivitamin) 1 Each Tablet 1 Tab PO DAILY Januvia (Sitagliptin Phosphate) 50 Mg Tablet 1 Tab PO DAILY Zoloft (Sertraline Hcl) 100 Mg Tablet 1 Tab PO DAILY Pantoprazole Sodium (Pantoprazole Sodium) 40 Mg Tablet.dr 1 Tab PO DAILY Oxybutynin Chloride Er (Oxybutynin Chloride) 10 Mg Tab.er.24 1 Tab PO DAILY Toprol Xl (Metoprolol Succinate) 50 Mg Tab.er.24h 1 Tab PO DAILY Levothyroxine Sodium 75 Mcg Tablet 1 Tab PO DAILY Gabapentin (Gabapentin) 300 Mg Capsule 300 Mg PO BID 300mg in am, 600mg at bedtime Fish Oil ([place]-3 Fatty Acids) 500 Mg Capsule.dr 500 Mg PO FENTANYL 25mcg/hr (Fentanyl) 1 Each Patch.td72 1 Patch TD Q72H Clopidogrel (Clopidogrel Bisulfate) 75 Mg Tablet 1 Tab PO DAILY Claritin (Loratadine) 10 Mg Tablet 1 Tab PO DAILY Atorvastatin Calcium 20 Mg Tablet 1 Tab PO DAILY Metformin Hcl Er (Metformin Hcl) 500 Mg Tab.er.24 1,000 Mg PO BID Vitals/I & O Vital Sign - Last 24 Hours 11/22/20 11/22/20 11/22/20 11/22/20 13:26 14:26 15:00 17:12 Temp 96.0 96.0 Pulse 74 74 Resp 17 17 20 B/P (MAP) 126/60 (82) 126/60 Pulse Ox 98 O2 Delivery Nasal Cannula Nasal Cannula O2 Flow Rate 2.0 11/22/20 11/22/20 11/22/20 11/23/20 19:00 20:00 23:00 00:07 Temp 98.3 96.8 98.3 96.8 Pulse 69 69 69 Resp 18 18 B/P (MAP) 114/56 (75) 126/59 (81) 126/59 Pulse Ox 96 99 O2 Delivery Nasal Cannula Nasal Cannula Nasal Cannula O2 Flow Rate 2.0 2.0 2.0 11/23/20 11/23/20 11/23/20 11/23/20 03:00 06:25 07:00 09:15 Temp 95.0 95.5 95.0 95.5 Pulse 61 75 66 Resp 18 18 B/P (MAP) 106/52 (70) 119/56 121/58 (79) Pulse Ox 98 99 O2 Delivery Nasal Cannula Nasal Cannula Nasal Cannula O2 Flow Rate 2.0 2.0 2.0 11/23/20 11/23/20 09:16 11:00 Temp 95.5 95.5 Pulse 66 68 Resp 18 B/P (MAP) 121/58 157/79 (105) Pulse Ox 98 O2 Delivery Nasal Cannula O2 Flow Rate 2.0 Intake and Output 11/22/20 11/22/20 11/23/20 15:00 23:00 07:00 Intake Total 240 ml 50 ml Balance 240 ml 50 ml Justifications for Admission General Conditions Altered mental status?: Yes Justification of admission: Patient has tachycardia (> 100 beats per minute) or hypotension (SBP < 90 mm Hg) leading to inadequate systemic perfusion as indicated by severe/persistent altered mental status. Other Justification CHEPE ALVARADO MD Nov 23, 2020 11:52
--- NOTE | 2020-11-23 12:45 | PDOC2 ---
GI CONSULT Date of Service: DATE: 11/23/20 TIME: 12:45 Reason For Consult: low Hgb hemo occult + HPI: HPI: 79 y/o female admitted 11/18/20 w/ confusion, discovered to be COVID-19 +. Hgb 12 on admission, drifted (lowest 6.6), improved after 1 unit pRBCs - stable x 3 days in 8s. Hemoccult +. No obvious bleeding per pt and nurse. Has had some intermittent nausea. H/o GERD controlled w/ PPI. Denies dysphagia, vomiting, abd pain, diarrhea, constipation, hematochezia, melena, or weight loss. Breathing is "not good." Past EGDs and colonoscopies - last 3-4 years ago. Recalls colon polyps at one point. S/p cholecystectomy. Denies liver, pancreas, and PUD history. H/o SBO/surgery. H/o A Fib and CAD on ASA, Plavix, and Eliquis. Unaware of any anemia history. Former nurse. PMH: PMH: A Fib, CAD w/ stent, HTN, DM, HLD, hypothyroidism, seasonal allergies, ventral hernias, anxiety/depression cholecystectomy, appendectomy, tubal ligation, bilateral wrist surgeries (ganglion cysts), bilateral knee replacements, SBR FH: Family History: No pertinent hx Social History: Smoke: Quit ALCOHOL: none Drugs: None ROS: GEN: Denies fevers, chills, sweats HEENT: Denies blurred vision, sore throat CV: Denies chest pain RESP: +SOA GI: Per HPI : Denies hematuria, dysuria ENDO: Denies weight changes NEURO: Denies confusion, dizziness MSK: Denies weakness, joint pain/swelling SKIN: Denies jaundice, pruritus Vitals: Vitals: Vital Signs Date Time Temp Pulse Resp B/P (MAP) Pulse Ox O2 Delivery O2 Flow Rate FiO2 11/23/20 11:00 95.5 68 18 157/79 (105) 98 Nasal Cannula 2.0 95.5 Labs: Labs: Laboratory Tests Test 11/22/20 16:10 11/22/20 20:17 11/23/20 07:09 11/23/20 10:05 Glucose (Fingerstick) 150 mg/dL (70-99) 206 mg/dL (70-99) 102 mg/dL (70-99) White Blood Count 6.1 x10^3/uL (4.0-11.0) Red Blood Count 2.59 x10^6/uL (3.50-5.40) Hemoglobin 8.6 g/dL (12.0-15.5) Hematocrit 25.1 % (36.0-47.0) Mean Corpuscular Volume 97 fL (79-100) Mean Corpuscular Hemoglobin 33 pg (25-35) Mean Corpuscular Hemoglobin Concent 34 g/dL (31-37) Red Cell Distribution Width 14.7 % (11.5-14.5) Platelet Count 264 x10^3/uL (140-400) Neutrophils (%) (Auto) 80 % (31-73) Lymphocytes (%) (Auto) 12 % (24-48) Monocytes (%) (Auto) 7 % (0-9) Eosinophils (%) (Auto) 1 % (0-3) Basophils (%) (Auto) 0 % (0-3) Neutrophils # (Auto) 4.9 x10^3/uL (1.8-7.7) Lymphocytes # (Auto) 0.7 x10^3/uL (1.0-4.8) Monocytes # (Auto) 0.4 x10^3/uL (0.0-1.1) Eosinophils # (Auto) 0.1 x10^3/uL (0.0-0.7) Basophils # (Auto) 0.0 x10^3/uL (0.0-0.2) Sodium Level 142 mmol/L (136-145) Potassium Level 3.7 mmol/L (3.5-5.1) Chloride Level 110 mmol/L (98-107) Carbon Dioxide Level 29 mmol/L (21-32) Anion Gap 3 (6-14) Blood Urea Nitrogen 10 mg/dL (7-20) Creatinine 0.6 mg/dL (0.6-1.0) Estimated GFR (Cockcroft-Gault) 96.7 Glucose Level 163 mg/dL (70-99) Calcium Level 7.4 mg/dL (8.5-10.1) Test 11/23/20 11:20 Glucose (Fingerstick) 176 mg/dL (70-99) Allergies: Coded Allergies: Penicillins (Verified Allergy, Intermediate, 01/27/16) Medications: Current Medications Medications (Trade) Dose Ordered Sig/Myra Route PRN Reason Start Time Stop Time Status Last Admin Dose Admin Apixaban (Eliquis) 5 mg BID PO 11/22/20 21:00 11/22/20 21:17 Imaging: Imaging: CXR 11/18 IMPRESSION: There is unchanged mild interstitial marking prominence. Considerations include chronic interstitial lung disease versus mild interstitial edema or interstitial infiltrate. Head CT 11/18 IMPRESSION: 1. No acute intracranial abnormality. 2. Age-related cerebral atrophy and periventricular white matter changes probably due to chronic small vessel ischemic disease. PE: GEN: seems a bit breathless when talking HEENT: Atraumatic, PERRL LUNGS: diminished, NC 2L HEART: RRR ABD: NABS, S/ND/NT, hernias EXTREMITY: No edema SKIN: No rashes, no jaundice NEURO/PSYCH: A & O 3 A/P: A/P: COVID-19 infection ACD/JESSICA, +Hemoccult - new, no obvious bleeding - Hgb stable x 3 days after transfusion GERD - on PPI CRC screen, h/o colon polyps - UTD S/p cholecystectomy H/o SBO/surgery A Fib and CAD - ASA, Plavix, and Eliquis (held currently) Hypothyroidism - TSH 0.303 -- Continue PPI and iron, monitor Hgb, observe for bleeding. Not a good candidate for endoscopy. TSERING CHAUDHARY Nov 23, 2020 12:45
[2020-11-23] MEDS: ANTI-COAG MONITOR BY PHARMACY. MC PRN (14:03)
--- NOTE | 2020-11-23 14:08 | NUR ---
[facility] following for discharge planning. Spoke with RN and reviewed chart. Pt COVID positive. Pt remains on 2l 02. PT recommendation remains for SNU. Spoke with pt's daughter. Pt's children are looking for [facility] for pt but are agreeable to SNU prior. Referral phoned and faxed to [facility] as they are accepting patients who are COVID positive. Pt choice of vendor form completed. Consult to GI. Pt not ready for discharge. [facility]JI following. Addendum: 11/23/20 at 1558 by DEEPTI ALEGRIA [facility] accepted pt clinically. Insurance authorization submitted today, 11/23.
--- NOTE | 2020-11-23 14:20 | PDOC ---
[facility] PROGRESS NOTE Date of Service DOS: DATE: 11/23/20 TIME: 14:16 Chief Complaint Chief Complaint A/P: Acute metabolic encephalopathy - patient tested COVID-19 positive Toxic encephalopathy also suspected - noted by home health and children, not at baseline. No focal neurologic deficits to indicate CVA, possibly due to electrolyte derangement. Likely also polypharmacy considering she has 2 fentanyl patches. Her TSH is low, will reduce her levothyroxine as well Paroxysmal AFIB - currently sinus. on oral Cardizem, metoprolol. Rate remains uncontrolled. On prophylactic dose of Lovenox. CAD s/p remote PCI/stent. On ASA/Plavix. Follows with [facility] cardiology, Dr. Salter Hypertension - will monitor Hyperlipidemia; statin Diabetes - type II, not well controlled. Sees Dr. Nash through [facility]. Will continue her 30u lantus regimen and sliding scale lispro otherwise Hypothyroidism; on replacement. TSH low, will reduce given her confusion and h/o afib H/o tobaccoism; in remission Hypomagnesemia - will replace Moderate protein calorie malnutrition - given her recent SNF stay her self care is in question. She notes she only eats microwave meals and sometimes a salad her home health aide will make FEN - ADA diet PPX - eliquis FULL CODE Dispo - inpatient for confusion, may need SNF or longer term placement History of Present Illness History of Present Illness 11/23/2020 No acute events overnight. No bleeding events. No positive first blood in the stool. GI evaluated and recommended to just continue with Protonix. Eliquis was restarted. Patient's chart, labs, images were reviewed and discussed with RN /7, weak still, but much better, some micro blood in stool, but anemia looks like chronic disease, start nutrition replacement, pt is still in sepsis respsonse, needs improvements in thing of plan started 2 days ago 11/21, PT andOT, cont current, OOB to chiar anemia today, w/u with PPI and vitamins, check retic. 1 u PRBC today pt pleasant, plan discussed Ms Flannery is a 79 yo F w/ PMHx HTN, paroxsymal afib who presents to ED via EMS after home health aide noted she was very confused, not acting like herself. Children noted the same. Patient notes she feels dizzy and shaky. She does complain of left shoulder pain that is 9 out of 10 nonradiating. She thinks this is due to a torn rotator cuff. She notes she just saw her medicare contact specialist yesterday, Dr. Nash, has a continuous glucometer on her left arm. Was increased in her dosing of lantus to 30u QAM instead of QHS, she did not change yet EKG sinus rhythm rate in the 80s, not in A. 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 No ST segment or T wave changes. Urinalysis positive ketones and glucosuria no leukocyte esterase or nitrates. Urine drug screen negative, though she is wearing two fentanyl patches, 25mcg on her left deltoid and right scapula. When asked how she got the patches on she tells me she doesn't do that, she only puts on her glucose monitor, which is on her left deltoid. She is confused about the fentanyl patches. Labs with WBC 5.5, Hb 12.1, platelets 181, NA 136, K3.8, BUN 23, CR 0.7, glucose 237, albumin 3.2, magnesium 1.6, TSH 0.[address] head with no acute intracranial findings. Chest radiograph with no acute changes Admitted for further care 11/19: Patient seen and evaluated. No acute events overnight, afebrile. Rate controlled A. fib. Given 2 fentanyl patches found on her body, initially toxic encephalopathy was concern. BUN increased from 23 to 51, etiology of confusion could certainly be uremic encephalopathy. Given precipitous jump in BUN on Eliquis will check FOBT, and provide IV fluids. Calcium 7.6 today, will schedule calcium carbonate 3 times daily with meals. She feels her confusion has resolved. She states that her daughter would like for her to be placed in a ssisted living facility, as patient lives alone. She is not wanting to be placed in assisted living facility. PT/OT evaluation pending for SNF versus long-term placement. 11/20: Patient seen and evaluated. Tested COVID-19 positive. Afebrile. Repeat troponin undetectable. Uremia improving with fluids, FOBT pending. Cardizem converted to short acting; appreciate cardiology input on management of this patient. PT/OT to evaluate for SNF. Will transfer to COVID-19 floor. Vitals/I&O Vitals/I&O: Vital Signs Date Time Temp Pulse Resp B/P (MAP) Pulse Ox O2 Delivery O2 Flow Rate FiO2 11/23/20 13:13 68 157/79 11/23/20 11:00 95.5 18 98 Nasal Cannula 2.0 95.5 I & O 11/22/20 11/22/20 11/23/20 15:00 23:00 07:00 Intake Total 240 ml 50 ml Balance 240 ml 50 ml Physical Exam General: Alert, Oriented X3, Cooperative, No acute distress Heart: Normal S1, Normal S2 Lungs: Clear, Other (good volume ) Abdomen: Soft, No tenderness Extremities: No clubbing, No cyanosis Skin: No rashes, No breakdown Labs Labs: Laboratory Tests Test 11/22/20 16:10 11/22/20 20:17 11/23/20 07:09 11/23/20 10:05 Glucose (Fingerstick) 150 mg/dL (70-99) 206 mg/dL (70-99) 102 mg/dL (70-99) White Blood Count 6.1 x10^3/uL (4.0-11.0) Red Blood Count 2.59 x10^6/uL (3.50-5.40) Hemoglobin 8.6 g/dL (12.0-15.5) Hematocrit 25.1 % (36.0-47.0) Mean Corpuscular Volume 97 fL (79-100) Mean Corpuscular Hemoglobin 33 pg (25-35) Mean Corpuscular Hemoglobin Concent 34 g/dL (31-37) Red Cell Distribution Width 14.7 % (11.5-14.5) Platelet Count 264 x10^3/uL (140-400) Neutrophils (%) (Auto) 80 % (31-73) Lymphocytes (%) (Auto) 12 % (24-48) Monocytes (%) (Auto) 7 % (0-9) Eosinophils (%) (Auto) 1 % (0-3) Basophils (%) (Auto) 0 % (0-3) Neutrophils # (Auto) 4.9 x10^3/uL (1.8-7.7) Lymphocytes # (Auto) 0.7 x10^3/uL (1.0-4.8) Monocytes # (Auto) 0.4 x10^3/uL (0.0-1.1) Eosinophils # (Auto) 0.1 x10^3/uL (0.0-0.7) Basophils # (Auto) 0.0 x10^3/uL (0.0-0.2) Sodium Level 142 mmol/L (136-145) Potassium Level 3.7 mmol/L (3.5-5.1) Chloride Level 110 mmol/L (98-107) Carbon Dioxide Level 29 mmol/L (21-32) Anion Gap 3 (6-14) Blood Urea Nitrogen 10 mg/dL (7-20) Creatinine 0.6 mg/dL (0.6-1.0) Estimated GFR (Cockcroft-Gault) 96.7 Glucose Level 163 mg/dL (70-99) Calcium Level 7.4 mg/dL (8.5-10.1) Test 11/23/20 11:20 Glucose (Fingerstick) 176 mg/dL (70-99) Assessment and Plan Assessmemt and Plan Problems Medical Problems: (1) AMS (altered mental status) Status: Acute Comment Review of Relevant I have reviewed the following items nhung (where applicable) has been applied. Medications: Current Medications Medications (Trade) Dose Ordered Sig/Myra Route PRN Reason Start Time Stop Time Status Last Admin Dose Admin Apixaban (Eliquis) 5 mg BID PO 11/22/20 21:00 11/22/20 21:17 Justifications for Admission General Conditions Altered mental status?: Yes Justification of admission: Patient has tachycardia (> 100 beats per minute) or hypotension (SBP < 90 mm Hg) leading to inadequate systemic perfusion as indicated by severe/persistent altered mental status. Other Justification GEMMA GARCIA MD Nov 23, 2020 14:19
[2020-11-23 15:00] VITALS: BP 125/60
[2020-11-23 20:06] VITALS: BP 136/83
[2020-11-23] MEDS: PSYLLIUM HUSK (SUGAR FREE) 1 PKT PACKET PO SCH (20:34)
[2020-11-23] MEDS: INSULIN GLARGINE SYRINGE. SQ SCH (20:37)
[2020-11-23 23:58] VITALS: BP 136/65
[2020-11-24 03:05] VITALS: BP 179/79
[2020-11-24 04:05] VITALS: BP 138/64
[2020-11-24] MEDS: PANTOPRAZOLE 40 MG TABLET.DR. PO SCH ×2 (06:39→08:51)
[2020-11-24] MEDS: LEVOTHYROXINE 50 MCG TABLET PO SCH (06:39)
[2020-11-24 06:43] LABS: BASO % 1 % (0-3); EOS # 0.2 x10^3/uL (0.0-0.7); EOS % 2 % (0-3); HEMATOCRIT 27.8 % (36.0-47.0); HEMOGLOBIN 9.4 g/dL (12.0-15.5); LYMPH # 1.2 x10^3/uL (1.0-4.8); LYMPH % 19 % (24-48); MEAN CORPUSCULAR HEMOGLOBIN 33 pg (25-35); MEAN CORPUSCULAR HGB CONC 34 g/dL (31-37); MEAN CORPUSCULAR VOLUME 97 fL (79-100); MONO # 0.6 x10^3/uL (0.0-1.1); MONO % 9 % (0-9); NEUT # 4.4 x10^3/uL (1.8-7.7); NEUT % 69 % (31-73); PLATELET COUNT 316 x10^3/uL (140-400); RED BLOOD COUNT 2.88 x10^6/uL (3.50-5.40); RED CELL DISTRIBUTION WIDTH 14.5 % (11.5-14.5); WHITE BLOOD COUNT 6.3 x10^3/uL (4.0-11.0)
[2020-11-24] MEDS: dilTIAZem HCL 30 MG TABLET PO SCH ×3 (06:51→17:59)
[2020-11-24 06:59] LABS: CALCIUM 8.2 mg/dL (8.5-10.1); CREATININE 0.6 mg/dL (0.6-1.0); GFR 96.7
[2020-11-24 07:00] VITALS: BP 130/66
[2020-11-24] MEDS: INSULIN LISPRO 300 UNITS/3 ML VIAL. SQ SCH ×3 (07:59→17:00)
[2020-11-24] MEDS: POLYETHYLENE GLYCOL 3350 17 GM PACKET. PO SCH (08:50)
[2020-11-24] MEDS: LIDOCAINE (700MG/PATCH) PATCH. TD SCH (08:50)
[2020-11-24] MEDS: ATORVASTATIN CALCIUM 20 MG TABLET PO SCH (08:51)
[2020-11-24] MEDS: IRON POLYSACCHARIDE COMPLEX 150 MG CAPSULE PO SCH (08:51)
[2020-11-24] MEDS: VITAMIN B12,B9,B6 COMPLEX 1 TABLET. PO SCH (08:51)
[2020-11-24] MEDS: LINAGLIPTIN 5 MG TABLET PO SCH (08:51)
[2020-11-24] MEDS: CHOLECALCIFEROL (VITAMIN D3) 1,000 UNIT TABLET PO SCH (08:51)
[2020-11-24] MEDS: SENNOSIDES/DOCUSATE 8.6/50MG TABLET. PO SCH (08:51)
[2020-11-24] MEDS: APIXABAN 5 MG TABLET. PO SCH (08:51)
[2020-11-24] MEDS: CLOPIDOGREL BISULFATE 75 MG TABLET PO SCH (08:51)
[2020-11-24] MEDS: SERTRALINE 50 MG TABLET. PO SCH (08:51)
[2020-11-24] MEDS: ACETAMINOPHEN 325 MG TABLET. PO PRN (08:51)
[2020-11-24] MEDS: CETIRIZINE HCL 10 MG TABLET. PO SCH (08:51)
[2020-11-24] MEDS: DICLOFENAC SODIUM 1% TOPICAL GEL 100GM TUBE. TP SCH (08:52)
[2020-11-24] MEDS: METOPROLOL SUCC 24HR ER 25 MG TAB.ER.24H. PO SCH (08:52)
[2020-11-24] MEDS: GABAPENTIN 300 MG CAPSULE. PO SCH (08:52)
[2020-11-24] MEDS ORDERED: SENN1TAB50 PO (09:11)
--- NOTE | 2020-11-24 09:17 | DISCH ---
DISCHARGE INSTRUCTIONS Condition on Discharge Condition on Discharge: Stable Activity After Discharge Activity Instructions for Disc: No restrictions, Activity as tolerated Lifting Instructions after Dis: No heavy lifting, No pulling or pushing Driving Instructions after Dis: Do not drive Weight Bearing Status after Di: As tolerated Diet after Discharge Diet after Discharge: Diabetic No Calorie Level Liquid Texture: Thin Liquid Follow-Up Follow up with: PCP within 2 weeks of discharge Follow Up With: GI as needed GEMMA GARCIA MD Nov 24, 2020 09:17
[2020-11-24] MEDS ORDERED: FERR325T14 PO (09:39)
--- NOTE | 2020-11-24 10:59 | NUR ---
SW following for discharge planning. Spoke with RN and reviewed chart. Spoke with Laurie from [facility] and insurance authorization approved for SNU. Pt to discharge today, 11/24 at 1300 with 2l via wc. Pt COVID positive. Discharge orders phoned and faxed. RN to call report. Clinicals ready to be sent with pt. Pt and pt's daughter Hali ([phone]) notified and agreeable. No further SW needs at this time. Addendum: 11/24/20 at 1104 by DEEPTI OSORIO SW Transportation time changed to 1600
[2020-11-24 11:00] VITALS: BP 110/73
--- NOTE | 2020-11-24 11:16 | PDOC ---
Date of Service: DATE: 11/24/20 TIME: 11:12 Subjective: Subjective: Feels better. Objective: Objective: D/w nurse - doing better, still no bleeding. Vital Signs: Vital Signs Date Time Temp Pulse Resp B/P (MAP) Pulse Ox O2 Delivery O2 Flow Rate FiO2 11/24/20 08:52 82 130/66 11/24/20 07:00 97.8 18 98 Nasal Cannula 2.0 97.8 Labs: Laboratory Tests Test 11/23/20 11:20 11/23/20 16:28 11/23/20 20:03 11/24/20 05:55 Glucose (Fingerstick) 176 mg/dL 136 mg/dL 200 mg/dL White Blood Count 6.3 x10^3/uL Red Blood Count 2.88 x10^6/uL Hemoglobin 9.4 g/dL Hematocrit 27.8 % Mean Corpuscular Volume 97 fL Mean Corpuscular Hemoglobin 33 pg Mean Corpuscular Hemoglobin Concent 34 g/dL Red Cell Distribution Width 14.5 % Platelet Count 316 x10^3/uL Neutrophils (%) (Auto) 69 % Lymphocytes (%) (Auto) 19 % Monocytes (%) (Auto) 9 % Eosinophils (%) (Auto) 2 % Basophils (%) (Auto) 1 % Neutrophils # (Auto) 4.4 x10^3/uL Lymphocytes # (Auto) 1.2 x10^3/uL Monocytes # (Auto) 0.6 x10^3/uL Eosinophils # (Auto) 0.2 x10^3/uL Basophils # (Auto) 0.0 x10^3/uL Sodium Level 144 mmol/L Potassium Level 4.0 mmol/L Chloride Level 111 mmol/L Carbon Dioxide Level 31 mmol/L Anion Gap 2 Blood Urea Nitrogen 7 mg/dL Creatinine 0.6 mg/dL Estimated GFR (Cockcroft-Gault) 96.7 Glucose Level 81 mg/dL Calcium Level 8.2 mg/dL Test 11/24/20 07:54 Glucose (Fingerstick) 84 mg/dL PE: GEN: COVID isolation - visual exam - looks more comfortable today LUNGS: NC HEART: RR ABD: non-distended NEURO/PSYCH: A & O 3 A/P: COVID-19 infection ACD/JESSICA, +Hemoccult - Hgb better, still no overt bleeding - on iron GERD - on PPI A Fib and CAD - ASA, Plavix, Eliquis -- Continue same per GI. Justicifation of Admission Dx: Justifications for Admission: Justification of Admission Dx: Yes Sepsis: Infection DKA: DKA TSERING CHAUDHARY Nov 24, 2020 11:16
--- NOTE | 2020-11-24 11:27 | SNU/HH DC ---
DISCHARGE ORDERS DISCHARGE INFORMATION: DISCHARGE DATE: Nov 24, 2020 FINAL DIAGNOSIS Problems Medical Problems: (1) AMS (altered mental status) Status: Acute CONDITION ON DISCHARGE: Stable CODE STATUS: Code Status: Full RESIDENTIAL: SNF STAY <30 DAYS: Yes POST DISCHARGE ORDERS: ACTIVITY ORDERS: No restrictions, Activity as tolerated WEIGHT BEARING STATUS: As tolerated DIET AFTER DISCHARGE: Cardiac FOLLOW-UP: PHYSICIAN FOLLOW-UP: PCP within 2 weeks of discharge ADDITIONAL FOLLOW-UP: Gastroenterology as needed LAB ORDERS FOR FOLLOW-UP: CBC, CMP within 2 weeks of discharge TREATMENT/EQUIPMENT ORDERS: Physical Therapy For: Evalulation/Treatment Occupational Therapy For: Evaluation/Treatment DISCHARGE MEDICATIONS: Home Meds Active Scripts Ferrous Sulfate (FERROUS SULFATE) 325 Mg Tablet, 1 TAB PO QODAY for iron deficiency anemia, #30 TAB 3 Refills Prov:GEMMA GARCIA MD 11/24/20 Sennosides/Docusate Sodium (STOOL SOFT-STIMULANT LAX TAB) 1 Each Tablet, 1 TAB PO BID for constipation for 30 Days, #60 TAB Prov:GEMMA GARCIA MD 11/24/20 Insulin Glargine,Hum.rec.anlog (LANTUS) 100 Unit/1 Ml Vial, 26 UNIT SQ QHS for . for 30 Days, #1 EACH Prov:CASTLE,NIAL K III DO 10/16/20 Hydrocodone Bit/Acetaminophen (HYDROCODONE-APAP 5-325 ) 1 Tab Tablet, 1 TAB PO PRN Q6HRS PRN for MODERATE-SEVERE PAIN for 14 Days, #60 TAB Prov:CASTLE,NIAL K III DO 10/16/20 Diltiazem Hcl (DILTIAZEM 24HR CD) 120 Mg Cap.er.24h, 120 MG PO DAILY for tachycardia for 30 Days, #30 CAP.SR Prov:CASTLE,NIAL K III DO 10/16/20 Metoprolol Succinate (METOPROLOL SUCCINATE ( XL )) 25 Mg Tab.er.24h, 75 MG PO DAILY for tachycardia for 30 Days, #90 TAB.SR Prov:CASTLE,NIAL K III DO 10/16/20 Apixaban (ELIQUIS) 5 Mg Tablet, 5 MG PO BID for arrhythmia for 30 Days, #60 TAB Prov:CASTLE,NIAL K III DO 10/16/20 Reported Medications Furosemide (FUROSEMIDE) 40 Mg Tablet, 1 TAB PO PRN DAILY for overload, #30 TAB 5 Refills 10/16/20 Potassium Chloride (Klor-Con 10) 10 Meq Tablet.er, 1 TAB PO PRN DAILY PRN for SEE ADMIN INSTRUCTIONS for 30 Days, TAB 0 Refills 10/16/20 Cholecalciferol (Vitamin D3) (VITAMIN D3) 1,000 Unit Tablet, 2 TAB PO BID, #30 TAB 5 Refills 01/27/16 Turmeric Root Extract (TURMERIC) 500 Mg Capsule, 500 MG PO DAILY 01/27/16 Multivitamin (MULTI-DAY VITAMINS) 1 Each Tablet, 1 TAB PO DAILY, #30 TAB 01/27/16 Sitagliptin Phosphate (JANUVIA) 50 Mg Tablet, 1 TAB PO DAILY, #30 TAB 5 Refills 01/27/16 Sertraline Hcl (ZOLOFT) 100 Mg Tablet, 1 TAB PO DAILY, #30 TAB 5 Refills 01/27/16 Pantoprazole Sodium (PANTOPRAZOLE SODIUM ) 40 Mg Tablet.dr, 1 TAB PO DAILY, #30 TAB 3 Refills 01/27/16 Oxybutynin Chloride (OXYBUTYNIN CHLORIDE ER) 10 Mg Tab.er.24, 1 TAB PO DAILY, #30 TAB 5 Refills 01/27/16 Metoprolol Succinate (TOPROL XL) 50 Mg Tab.er.24h, 1 TAB PO DAILY, #30 TAB 5 Refills 01/27/16 Levothyroxine Sodium (LEVOTHYROXINE SODIUM) 75 Mcg Tablet, 1 TAB PO DAILY, #30 TAB 5 Refills 01/27/16 Gabapentin (GABAPENTIN ) 300 Mg Capsule, 300 MG PO BID, CAP 300mg in am, 600mg at bedtime 01/27/16 [place]-3 Fatty Acids (FISH OIL) 500 Mg Capsule.dr, 500 MG PO 01/27/16 Fentanyl (FENTANYL 25mcg/hr) 1 Each Patch.td72, 1 PATCH TD Q72H, PATCH 01/27/16 Clopidogrel Bisulfate (CLOPIDOGREL) 75 Mg Tablet, 1 TAB PO DAILY, #90 TAB 1 Refill 01/27/16 Loratadine (CLARITIN) 10 Mg Tablet, 1 TAB PO DAILY, #30 TAB 5 Refills 01/27/16 Atorvastatin Calcium (ATORVASTATIN CALCIUM) 20 Mg Tablet, 1 TAB PO DAILY, #30 TAB 5 Refills 01/27/16 Metformin Hcl (METFORMIN HCL ER) 500 Mg Tab.er.24, 1000 MG PO BID 2/19/14 Discontinued Scripts Alprazolam (ALPRAZOLAM) 0.25 Mg Tablet, 0.25 MG PO PRN Q6HRS PRN for ANXIETY / AGITATION, #6 TAB 0 Refills Prov:BE PAREKH DO 12/21/19 GEMMA GARCIA MD Nov 24, 2020 11:26
[2020-11-24] MEDS: ANTI-COAG MONITOR BY PHARMACY. MC PRN (14:53)
[2020-11-24 15:00] VITALS: BP 131/56
[2020-11-24] MEDS: traMADol 50 MG TABLET PO PRN (15:37)
[2020-11-24 17:59] VITALS: BP 131/56
--- NOTE | 2020-11-24 17:59 | NUR ---
Patient discharged with transportation to [facility]. IV and telemonitor discontinued. Belongings with patient. Pt last bowel movement today was mostly black and tarry, last bit was brown and formed. Family notified. Report given to Eliz HEBERT at facility at 1503.
--- NOTE | 2020-11-26 21:05 | PDOC3 ---
[facility]-Discharge Summary Date of Admission: Date of Admission: Nov 18, 2020 Date of Discharge: Date of Discharge: Nov 24, 2020 Discharge Diagnosis: Discharge Diagnosis: Acute metabolic encephalopathy - patient tested COVID-19 positive Toxic encephalopathy also suspected - noted by home health and children, not at baseline. No focal neurologic deficits to indicate CVA, possibly due to electrolyte derangement. Likely also polypharmacy considering she has 2 fentanyl patches. Her TSH is low, will reduce her levothyroxine as well Paroxysmal AFIB - currently sinus. on oral Cardizem, metoprolol. Rate remains uncontrolled. On prophylactic dose of Lovenox. CAD s/p remote PCI/stent. On ASA/Plavix. Follows with [facility] cardiology, Dr. Salter Hypertension - will monitor Hyperlipidemia; statin Diabetes - type II, not well controlled. Sees Dr. Nash through [facility]. Will continue her 30u lantus regimen and sliding scale lispro otherwise Hypothyroidism; on replacement. TSH low, will reduce given her confusion and h/o afib H/o tobaccoism; in remission Hypomagnesemia - will replace Moderate protein calorie malnutrition - given her recent SNF stay her self care is in question. She notes she only eats microwave meals and sometimes a salad her home health aide will make Hospital Course: Hospital Course: By day of discharge patient was clinically stable and her Hb was stable as well. Rest of her hospital course was uneventful. 11/23/2020 No acute events overnight. No bleeding events. No positive first blood in the stool. GI evaluated and recommended to just continue with Protonix. Eliquis was restarted. Patient's chart, labs, images were reviewed and discussed with RN /7, weak still, but much better, some micro blood in stool, but anemia looks like chronic disease, start nutrition replacement, pt is still in sepsis respsonse, needs improvements in thing of plan started 2 days ago 11/21, PT andOT, cont current, OOB to chiar anemia today, w/u with PPI and vitamins, check retic. 1 u PRBC today pt pleasant, plan discussed Ms Flannery is a 79 yo F w/ PMHx HTN, paroxsymal afib who presents to ED via EMS after home health aide noted she was very confused, not acting like herself. Children noted the same. Patient notes she feels dizzy and shaky. She does complain of left shoulder pain that is 9 out of 10 nonradiating. She thinks this is due to a torn rotator cuff. She notes she just saw her court transcriber yesterday, Dr. Nash, has a continuous glucometer on her left arm. Was increased in her dosing of lantus to 30u QAM instead of QHS, she did not change yet EKG sinus rhythm rate in the 80s, not in A. fib, does have left anterior fas cicular block and left axis deviation. No ST segment or T wave changes. Urinalysis positive ketones and glucosuria no leukocyte esterase or nitrates. Urine drug screen negative, though she is wearing two fentanyl patches, 25mcg on her left deltoid and right scapula. When asked how she got the patches on she tells me she doesn't do that, she only puts on her glucose monitor, which is on her left deltoid. She is confused about the fentanyl patches. Labs with WBC 5.5, Hb 12.1, platelets 181, NA 136, K3.8, BUN 23, CR 0.7, glucose 237, albumin 3.2, magnesium 1.6, TSH 0.[address] head with no acute intracranial findings. Chest radiograph with no acute changes Admitted for further care 11/19: Patient seen and evaluated. No acute events overnight, afebrile. Rate controlled A. fib. Given 2 fentanyl patches found on her body, initially toxic encephalopathy was concern. BUN increased from 23 to 51, etiology of confusion could certainly be uremic encephalopathy. Given precipitous jump in BUN on Eliquis will check FOBT, and provide IV fluids. Calcium 7.6 today, will schedule calcium carbonate 3 times daily with meals. She feels her confusion has resolved. She states that her daughter would like for her to be placed in assisted living facility, as patient lives alone. She is not wanting to be placed in assisted living facility. PT/OT evaluation pending for SNF versus long-term placement. 11/20: Patient seen and evaluated. Tested COVID-19 positive. Afebrile. Repeat troponin undetectable. Uremia improving with fluids, FOBT pending. Cardizem converted to short acting; appreciate cardiology input on management of this patient. PT/OT to evaluate for SNF. Will transfer to COVID-19 floor. Disposition: Disposition/Orders: D/C to Another Facility Activity: Activity: Resume previous activity Diet: Diet: Cardiac Medications: Home Meds Active Scripts Ferrous Sulfate (FERROUS SULFATE) 325 Mg Tablet, 1 TAB PO QODAY for iron deficiency anemia, #30 TAB 3 Refills Prov:GEMMA GARCIA MD 11/24/20 Sennosides/Docusate Sodium (STOOL SOFT-STIMULANT LAX TAB) 1 Each Tablet, 1 TAB PO BID for constipation for 30 Days, #60 TAB Prov:GEMMA GARCIA MD 11/24/20 Insulin Glargine,Hum.rec.anlog (LANTUS) 100 Unit/1 Ml Vial, 26 UNIT SQ QHS for . for 30 Days, #1 EACH Prov:CASTLE,NIAL K III DO 10/16/20 Diltiazem Hcl (DILTIAZEM 24HR CD) 120 Mg Cap.er.24h, 120 MG PO DAILY for tachycardia for 30 Days, #30 CAP.SR Prov:CASTLE,NIAL K III DO 10/16/20 Metoprolol Succinate (METOPROLOL SUCCINATE ( XL )) 25 Mg Tab.er.24h, 75 MG PO DAILY for tachycardia for 30 Days, #90 TAB.SR Prov:CASTLE,NIAL K III DO 10/16/20 Apixaban (ELIQUIS) 5 Mg Tablet, 5 MG PO BID for arrhythmia for 30 Days, #60 TAB Prov:CASTLE,NIAL K III DO 10/16/20 Reported Medications Furosemide (FUROSEMIDE) 40 Mg Tablet, 1 TAB PO PRN DAILY for overload, #30 TAB 5 Refills 10/16/20 Potassium Chloride (Klor-Con 10) 10 Meq Tablet.er, 1 TAB PO PRN DAILY PRN for SEE ADMIN INSTRUCTIONS for 30 Days, TAB 0 Refills 10/16/20 Cholecalciferol (Vitamin D3) (VITAMIN D3) 1,000 Unit Tablet, 2 TAB PO BID, #30 TAB 5 Refills 01/27/16 Turmeric Root Extract (TURMERIC) 500 Mg Capsule, 500 MG PO DAILY 01/27/16 Multivitamin (MULTI-DAY VITAMINS) 1 Each Tablet, 1 TAB PO DAILY, #30 TAB 01/27/16 Sitagliptin Phosphate (JANUVIA) 50 Mg Tablet, 1 TAB PO DAILY, #30 TAB 5 Refills 01/27/16 Sertraline Hcl (ZOLOFT) 100 Mg Tablet, 1 TAB PO DAILY, #30 TAB 5 Refills 01/27/16 Pantoprazole Sodium (PANTOPRAZOLE SODIUM ) 40 Mg Tablet.dr, 1 TAB PO DAILY, #30 TAB 3 Refills 01/27/16 Oxybutynin Chloride (OXYBUTYNIN CHLORIDE ER) 10 Mg Tab.er.24, 1 TAB PO DAILY, #30 TAB 5 Refills 01/27/16 Metoprolol Succinate (TOPROL XL) 50 Mg Tab.er.24h, 1 TAB PO DAILY, #30 TAB 5 Refills 01/27/16 Levothyroxine Sodium (LEVOTHYROXINE SODIUM) 75 Mcg Tablet, 1 TAB PO DAILY, #30 TAB 5 Refills 01/27/16 Gabapentin (GABAPENTIN ) 300 Mg Capsule, 300 MG PO BID, CAP 300mg in am, 600mg at bedtime 01/27/16 [place]-3 Fatty Acids (FISH OIL) 500 Mg Capsule.dr, 500 MG PO 01/27/16 Fentanyl (FENTANYL 25mcg/hr) 1 Each Patch.td72, 1 PATCH TD Q72H, PATCH 01/27/16 Clopidogrel Bisulfate (CLOPIDOGREL) 75 Mg Tablet, 1 TAB PO DAILY, #90 TAB 1 Refill 01/27/16 Loratadine (CLARITIN) 10 Mg Tablet, 1 TAB PO DAILY, #30 TAB 5 Refills 01/27/16 Atorvastatin Calcium (ATORVASTATIN CALCIUM) 20 Mg Tablet, 1 TAB PO DAILY, #30 TAB 5 Refills 01/27/16 Metformin Hcl (METFORMIN HCL ER) 500 Mg Tab.er.24, 1000 MG PO BID 11/06/13 Discontinued Scripts Hydrocodone Bit/Acetaminophen (HYDROCODONE-APAP 5-325 ) 1 Tab Tablet, 1 TAB PO PRN Q6HRS PRN for MODERATE-SEVERE PAIN for 14 Days, #60 TAB Prov:CASTLE,NIAL K III DO 10/16/20 Alprazolam (ALPRAZOLAM) 0.25 Mg Tablet, 0.25 MG PO PRN Q6HRS PRN for ANXIETY / AGITATION, #6 TAB 0 Refills Prov:BE PAREKH DO 12/21/19 Scheduled Apixaban (Eliquis), 5 MG PO BID Atorvastatin Calcium (Atorvastatin Calcium), 1 TAB PO DAILY, (Reported) Cholecalciferol (Vitamin D3) (Vitamin D3), 2 TAB PO BID, (Reported) Clopidogrel Bisulfate (Clopidogrel), 1 TAB PO DAILY, (Reported) Diltiazem Hcl (Diltiazem 24HR Cd), 120 MG PO DAILY Fentanyl (FENTANYL 25mcg/hr), 1 PATCH TD Q72H, (Reported) Ferrous Sulfate (Ferrous Sulfate), 1 TAB PO QODAY Furosemide (Furosemide), 1 TAB PO PRN DAILY, (Reported) Gabapentin (Gabapentin ), 300 MG PO BID, (Reported) Insulin Glargine,Hum.rec.anlog (Lantus), 26 UNIT SQ QHS Levothyroxine Sodium (Levothyroxine Sodium), 1 TAB PO DAILY, (Reported) Loratadine (Claritin), 1 TAB PO DAILY, (Reported) Metformin Hcl (Metformin Hcl Er), 1,000 MG PO BID, (Reported) Metoprolol Succinate (Toprol Xl), 1 TAB PO DAILY, (Reported) Metoprolol Succinate (Metoprolol Succinate ( Xl )), 75 MG PO DAILY Multivitamin (Multi-Day Vitamins), 1 TAB PO DAILY, (Reported) Oxybutynin Chloride (Oxybutynin Chloride Er), 1 TAB PO DAILY, (Reported) Pantoprazole Sodium (Pantoprazole Sodium ), 1 TAB PO DAILY, (Reported) Sennosides/Docusate Sodium (Stool Soft-Stimulant Lax Tab), 1 TAB PO BID Sertraline Hcl (Zoloft), 1 TAB PO DAILY, (Reported) Sitagliptin Phosphate (Januvia), 1 TAB PO DAILY, (Reported) Turmeric Root Extract (Turmeric), 500 MG PO DAILY, (Reported) Scheduled PRN Potassium Chloride (Klor-Con 10), 1 TAB PO PRN DAILY PRN for SEE ADMIN INSTRUCTIONS, (Reported) Miscellaneous Medications [place]-3 Fatty Acids (Fish Oil), 500 MG PO, (Reported) Discontinued Medications Alprazolam (Alprazolam), 0.25 MG PO PRN Q6HRS PRN for ANXIETY / AGITATION Hydrocodone Bit/Acetaminophen (Hydrocodone-Apap 5-325 ), 1 TAB PO PRN Q6HRS PRN for MODERATE-SEVERE PAIN Total Time: Total Time: Total time spent was 35 minutes in preparing scripts, discharge planning with SW and RN, and preparing this discharge summary. Patient seen and examined on day of discharge. Justicifation of Admission Dx: Justifications for Admission: Justification of Admission Dx: Yes Sepsis: Infection DKA: GEMMA MASSEY MD Nov 26, 2020 21:05
== END 2020-11-24 17:52 | DRG 177 ==
LOC: ER 14:44 → 2 SOUTH 17:41 → 6 SOUTH 11-20 14:40
PROVIDERS: ADMIT Internal Medicine; ATTEND Internal Medicine
PROC: 30233N1 Transfusion of Nonautologous Red Blood Cells into Peripheral Vein, Percutaneous Approach (ICD-10-PCS; principal; 2020-11-21)
DX: U07.1 COVID-19 (principal); G93.41 Metabolic encephalopathy; E44.0 Moderate protein-calorie malnutrition; I48.0 Paroxysmal atrial fibrillation; I25.10 Atherosclerotic heart disease of native coronary artery without angina pectoris; E78.5 Hyperlipidemia, unspecified; I10 Essential (primary) hypertension; E11.9 Type 2 diabetes mellitus without complications; K21.9 Gastro-esophageal reflux disease without esophagitis; I44.4 Left anterior fascicular block; F32.9 Major depressive disorder, single episode, unspecified; F41.9 Anxiety disorder, unspecified; Z96.653 Presence of artificial knee joint, bilateral; E03.9 Hypothyroidism, unspecified; K63.5 Polyp of colon; K43.9 Ventral hernia without obstruction or gangrene; G89.29 Other chronic pain; I95.9 Hypotension, unspecified; E78.00 Pure hypercholesterolemia, unspecified; R19.5 Other fecal abnormalities; M25.511 Pain in right shoulder; D63.8 Anemia in other chronic diseases classified elsewhere; D50.9 Iron deficiency anemia, unspecified; E83.42 Hypomagnesemia; Z87.891 Personal history of nicotine dependence; Z90.49 Acquired absence of other specified parts of digestive tract; Z82.49 Family history of ischemic heart disease and other diseases of the circulatory system; Z86.73 Personal history of transient ischemic attack (TIA), and cerebral infarction without residual deficits; Z95.5 Presence of coronary angioplasty implant and graft; Z98.51 Tubal ligation status; Z68.37 Body mass index [BMI] 37.0-37.9, adult
CPT/HCPCS: 36415; 36430; 70450; 71045; 80048; 80053; 80307; 81001; 82274; 82962; 83540; 83550; 83605; 83735; 83880; 84100; 84145; 84443; 84484; 85014; 85018; 85025; 85027; 85045; 85610; 86850; 86900; 86901; 86920; 87040; 93005; 96361; 96365; 96375; J1815; J2405; J3420; J3475; J7030; J7040; P9016; U0003; 97110-GP; 97530-GO; 97530-GP; 97535-GO; 99285-25; G0378